=== PATIENT | male | born 1940 | race Caucasian/White ===

== ENCOUNTER 2017-08-22 15:19 | Inpatient (IN) | payer OTHER ==
[~2017-08-22] VITALS: Ht 180.3 cm; Wt 77.2 kg
[~2017-08-22 15:19] MED LIST: ALL300 PO; ASPI-319 PO; LOSA1TAB PO
[2017-08-22] MEDS ORDERED: [UNRECOGNIZED DRUG - CODE] PO (16:23)
[2017-08-22] MEDS ORDERED: EMPA1TAB3 PO (16:23)
[2017-08-22] MEDS ORDERED: ALL300 PO (16:23)
[2017-08-22] MEDS ORDERED: FENTANYL CITRATE INJ 50 MCG/1 ML 2 ML VIAL IV ONE ×2 (16:30→19:15)
--- NOTE | 2017-08-22 16:35 | EMERGENCY ROOM VISIT NOTE ---
History First contact with patient: 15:41 Chief Complaint: BACK PAIN Stated Complaint: BACK PAIN History of Present Illness The patient is a 76 year old male who presents to the Emergency Room with complaints of lower back pain and right hip pain after sustaining a fall this weekend. Patient has a history of dementia. Most of the history is taken from the who is currently at the bedside. The patient fell backwards striking his back on the ground. The patient's does not think that he hit his head. He is not on any anticoagulation. They have been trying Motrin and ice, which seemed to help. The patient however did not want to get out of bed today. He did not want to bear weight on the right leg. The patient has a history of lumbar spine surgery years ago. The patient currently denies any pain. Review of Systems 10 system review performed and negative unless noted in HPI or below. This was reviewed to the best of my ability with the Past Medical/Surgical History Medical Problems: (1) Bowel cancer (2) Diabetes (3) Fall (4) history of bowel resection (5) Kidney stones (6) Pelvic fracture (7) Ribs, multiple fractures (8) Sepsis Surgical Problems: (1) History of appendectomy Dementia Family History Diabetes mellitus Hypertension Social History Smoking Status: Former Smoker Marital Status: Housing Status: lives with family Occupation Status: retired Current/Historical Medications Scheduled Allopurinol (Allopurinol), 150 MG PO DAILY Empagliflozin (Jardiance), Unknown Dose PO DAILY Fluorometholone (Ophth) (Fluorometholone), 1 DROP OPR DAILY Losartan Potassium (Cozaar), 25 MG PO DAILY Metformin HCl (Metformin Hydrochloride), 1,000 MG PO BID Physical Exam Vital Signs Date Time Temp Pulse Resp B/P (MAP) Pulse Ox O2 Delivery O2 Flow Rate FiO2 08/22/17 22:10 72 18 125/72 97 Room Air 08/22/17 20:40 75 18 130/75 97 Room Air 08/22/17 19:15 62 18 134/72 97 Room Air 08/22/17 17:30 54 18 123/85 97 Room Air 08/22/17 15:30 36.8 67 18 138/98 98 Room Air Physical Exam VITALS: Vitals are noted on the nurse's note and reviewed by myself. Vital signs stable. GENERAL: 76-year-old male, in no acute distress, nondiaphoretic, well-developed well-nourished. SKIN: The skin was without rashes, erythema, edema, or bruising. HEAD: Normocephalic atraumatic. NECK: Cervical spine is nontender. No JVD. HEART: Regular rate and rhythm without murmurs gallops or rubs. LUNGS: Clear to auscultation bilaterally without wheezes, rales or rhonchi. No accessory muscle use. ABDOMEN: Positive bowel sounds x 4.Soft, nontender, without organomegaly. No guarding or rebound tenderness. MUSCULOSKELETAL: No tenderness to palpation noted over the spinous processes throughout the spine. No tenderness over the thorax. Pain over the right lateral hip. Pain extending down into the mid thigh with palpation. Pain with flexion and abduction of the hip. No limb length discrepancy noted. DP pulse +2 bilaterally. NEURO: Patient was alert and answers most questions appropriately. He does not know the date. No focal motor deficits noted Medical Decision & Procedures ER Provider Diagnostic Interpretation: CT RLE IMPRESSION: Nondisplaced very subtle cortical buckle fracture right inferior pubic ring. Mild degenerative change of all remaining osseous structures. The above report was generated using voice recognition software. It may contain grammatical, syntax or spelling errors. Electronically signed by: Trav Adame M.D. 08/22/2017 8:15 PM Dictated Date/Time: 08/22/2017 8:12 PM The status of this report is Signed. Rib x-rays with chest Lungs are clear. IMPRESSION: 1. Nondisplaced cortical fracture anterior right ninth and 10th ribs. 2. Several old left-sided rib fractures. 3. No evidence pneumothorax. The above report was generated using voice recognition software. It may contain grammatical, syntax or spelling errors. Electronically signed by: Trav Adame M.D. 08/22/2017 7:10 PM Dictated Date/Time: 08/22/2017 7:07 PM The status of this report is Signed. Draft = Not yet reviewed or approved by Radiologist. Signed = Reviewed and approved by Radiologist. Femur x-ray IMPRESSION: Negative study. The above report was generated using voice recognition software. It may contain grammatical, syntax or spelling errors. Electronically signed by: Trav Adame M.D. 08/22/2017 7:07 PM Dictated Date/Time: 08/22/2017 7:07 PM Hip/pelvis x-ray IMPRESSION: Generalized degenerative change. No acute process. The above report was generated using voice recognition software. It may contain grammatical, syntax or spelling errors. Electronically signed by: Trav Adame M.D. 08/22/2017 7:06 PM Dictated Date/Time: 08/22/2017 7:03 PM The status of this report is Signed. CT cervical spine IMPRESSION: No fractures within the cervical spine. Moderate degenerative change of mid to lower cervical region. The above report was generated using voice recognition software. It may contain grammatical, syntax or spelling errors. Electronically signed by: Trav Adame M.D. 08/22/2017 5:33 PM Dictated Date/Time: 08/22/2017 5:[address] without contrast Impression: No acute intracranial abnormality. Age-related change. The above report was generated using voice recognition software. It may contain grammatical, syntax or spelling errors. Electronically signed by: Trav Adame M.D. 08/22/2017 5:30 PM Dictated Date/Time: 08/22/2017 5:29 PM The status of this report is Signed. Draft = Not yet reviewed or approved by Radiologist. Signed = Reviewed and approved by Radiologist. Lumbar CT without contrast IMPRESSION: No fractures within the lumbar spine. . Degenerative change. Mild osteopenia. Several mild wedge deformity superior endplates of L2 and L3 considered old The above report was generated using voice recognition software. It may contain Thoracic CT spine without contrast IMPRESSION: No fractures within the thoracic spine. Moderate degenerative disc change throughout. The above report was generated using voice recognition software. It may contain grammatical, syntax or spelling errors. Electronically signed by: Trav Adame M.D. 08/22/2017 5:38 PM Laboratory Results 08/22/17 15:34 Red Blood Count 5.19, Mean Corpuscular Volume 87.3, Mean Corpuscular Hemoglobin 31.8, Mean Corpuscular Hemoglobin Concent 36.4, Mean Platelet Volume 10.5, Neutrophils (%) (Auto) 60.8, Lymphocytes (%) (Auto) 29.1, Monocytes (%) (Auto) 8.5, Eosinophils (%) (Auto) 1.0, Basophils (%) (Auto) 0.3, Neutrophils # (Auto) 5.61, Lymphocytes # (Auto) 2.68, Monocytes # (Auto) 0.78, Eosinophils # (Auto) 0.09, Basophils # (Auto) 0.03 08/22/17 15:34 Test 08/22/17 15:34 White Blood Count 9.22 K/uL (4.8-10.8) Red Blood Count 5.19 M/uL (4.7-6.1) Hemoglobin 16.5 g/dL (14.0-18.0) Hematocrit 45.3 % (42-52) Mean Corpuscular Volume 87.3 fL (80-100) Mean Corpuscular Hemoglobin 31.8 pg (25-34) Mean Corpuscular Hemoglobin Concent 36.4 g/dl (32-36) Platelet Count 279 K/uL (130-400) Mean Platelet Volume 10.5 fL (7.4-10.4) Neutrophils (%) (Auto) 60.8 % Lymphocytes (%) (Auto) 29.1 % Monocytes (%) (Auto) 8.5 % Eosinophils (%) (Auto) 1.0 % Basophils (%) (Auto) 0.3 % Neutrophils # (Auto) 5.61 K/uL (1.4-6.5) Lymphocytes # (Auto) 2.68 K/uL (1.2-3.4) Monocytes # (Auto) 0.78 K/uL (0.11-0.59) Eosinophils # (Auto) 0.09 K/uL (0-0.5) Basophils # (Auto) 0.03 K/uL (0-0.2) RDW Standard Deviation 42.1 fL (36.4-46.3) RDW Coefficient of Variation 13.2 % (11.5-14.5) Immature Granulocyte % (Auto) 0.3 % Immature Granulocyte # (Auto) 0.03 K/uL (0.00-0.02) Anion Gap 9.0 mmol/L (3-11) Est Creatinine Clear Calc Drug Dose 70.4 ml/min Estimated GFR () 89.8 Estimated GFR (Non- 77.4 BUN/Creatinine Ratio 19.9 (10-20) Calcium Level 9.5 mg/dl (8.5-10.1) Total Bilirubin 0.7 mg/dl (0.2-1) Aspartate Amino Transf (AST/SGOT) 37 U/L (15-37) Alanine Aminotransferase (ALT/SGPT) 49 U/L (12-78) Alkaline Phosphatase 111 U/L (45-117) Troponin I < 0.015 ng/ml (0-0.045) Total Protein 8.4 gm/dl (6.4-8.2) Albumin 4.4 gm/dl (3.4-5.0) Globulin 4.0 gm/dl (2.5-4.0) Albumin/Globulin Ratio 1.1 (0.9-2) Thyroid Stimulating Hormone (TSH) 1.710 uIu/ml (0.300-4.500) Medications Administered Medications (Trade) Dose Ordered Sig/Aniyah Route Start Time Stop Time Status Last Admin Dose Admin Fentanyl Citrate (Fentanyl Inj) 25 mcg NOW ONCE IV 08/22/17 16:30 08/22/17 16:31 DC 08/22/17 16:47 25 MCG Fentanyl Citrate (Fentanyl Inj) 25 mcg NOW ONCE IV 08/22/17 19:15 08/22/17 19:16 DC 08/22/17 19:15 25 MCG ECG Per My Interpretation Rate (beats per minute): 69 Rhythm: normal sinus ED Course Patient was seen and examined Vital signs including blood pressure were reviewed The patient was medicated with fentanyl 25 mcg Imaging was performed and reviewed The patient was reevaluated after imaging and was having significant pain. He was given an additional dose of fentanyl An EKG was performed. Blood work was also reviewed. Case was discussed with my supervising physician who personally evaluated the patient The patient tried to ambulate with a walker. He had significant difficulty. The case was discussed with orthopedics and subsequently the [facility] service who kindly agreed to keep patient overnight for further treatment Medical Decision Differential diagnosis: Fracture, contusion, sprain, intrathoracic/intra- abdominal injury,, intracranial bleed, questionable syncope This patient is a 76-year-old male presents to the emergency department with a reported mechanical fall. On exam, he had significant pain with flexion and abduction of the right hip. I cannot elicit any significant tenderness over his spine. Due to his dementia, I ordered a CT of the head and spine. These were negative. The patient had exquisite pain with weightbearing on the right leg. For this reason, a CT of the hip was performed. This shows a fracture in the inferior pubic ring, which is likely the source of his pain. Although the thought that this fall was mechanical, I ordered an EKG and basic blood work. No significant abnormalities were noted. The case was discussed with orthopedics. There is no surgical treatment necessary. Unfortunately, I could not get the patient comfortable enough to ambulate with a walker. For this reason, the patient was discussed with the [facility] service who kindly agreed to keep patient overnight for pain control and possible placement This chart was completed in part utilizing [employer] Voice Recognition software. Attempts were made to minimize the grammatical errors, random word insertions, pronoun errors and incomplete sentences. Any formal questions or concerns about the content, text or information contained within the body of this dictation should be directly addressed to the provider for clarification. Medication Reconcilliation Current Medication List: was personally reviewed by me Blood Pressure Screening Patient's blood pressure: Normal blood pressure Consults Consulting Physician: Dr. Short Additional Consults: Consulted Physician: Dr. Gertrude Patel Impression Primary Impression: Pelvic fracture Departure Information Referrals Zack Gerardo M.D. (PCP) Patient Instructions [facility]
--- NOTE | 2017-08-22 17:32 | DIAGNOSTIC IMAGING REPORT ---
HEAD WITHOUT CONTRAST (CT) CT DOSE: HISTORY: Trauma. Mental status change. fall TECHNIQUE: Multiaxial CT images of the head were performed without the use of intravenous contrast. A dose lowering technique was utilized adhering to the principles of ALARA. Comparison: 2013 Findings: The paranasal sinuses and mastoid air cells are clear. The calvarium and skull base are intact. The ventricles and sulci are within normal limits. There is no mass, hematoma, midline shift, or acute infarct. Age-related atrophy and scattered areas of encephalomalacia. Impression: No acute intracranial abnormality. Age-related change. The above report was generated using voice recognition software. It may contain grammatical, syntax or spelling errors. Electronically signed by: Trav Adame M.D. 08/22/2017 5:30 PM Dictated Date/Time: 08/22/2017 5:29 PM
--- NOTE | 2017-08-22 17:35 | DIAGNOSTIC IMAGING REPORT ---
CERVICAL SPINE W/O CT DOSE: HISTORY: Trauma. Pain. fall back pain TECHNIQUE: Multiaxial CT images of the cervical spine were performed and reformatted in the sagittal and coronal plane without the use of contrast. A dose lowering technique was utilized adhering to the principles of ALARA. COMPARISON: None. FINDINGS: No fractures. No subluxation. Prevertebral soft tissues and the C1-C2 interval are intact. No pneumothorax. Degenerative change C5-C7. IMPRESSION: No fractures within the cervical spine. Moderate degenerative change of mid to lower cervical region. The above report was generated using voice recognition software. It may contain grammatical, syntax or spelling errors. Electronically signed by: Trav Adame M.D. 08/22/2017 5:33 PM Dictated Date/Time: 08/22/2017 5:31 PM
--- NOTE | 2017-08-22 17:39 | DIAGNOSTIC IMAGING REPORT ---
THORACIC SPINE WITHOUT CT DOSE: 3515.44 mGy.cm HISTORY: Trauma. Pain. fall back pain TECHNIQUE: Multiaxial CT images of the thoracic spine were performed and reformatted in the sagittal and coronal plane without the use of contrast. A dose lowering technique was utilized adhering to the principles of ALARA. COMPARISON: None. FINDINGS: No fractures. No subluxation. Paraspinal soft tissues are unremarkable. Moderate degenerative change throughout the entire thoracic region IMPRESSION: No fractures within the thoracic spine. Moderate degenerative disc change throughout. The above report was generated using voice recognition software. It may contain grammatical, syntax or spelling errors. Electronically signed by: Trav Adame M.D. 08/22/2017 5:38 PM Dictated Date/Time: 08/22/2017 5:34 PM
--- NOTE | 2017-08-22 17:42 | DIAGNOSTIC IMAGING REPORT ---
LUMBAR SPINE WITHOUT CT DOSE: HISTORY: Trauma. Pain. low back pain into R groin TECHNIQUE: Multiaxial CT images of the lumbar spine were performed and reformatted in the sagittal and coronal plane without the use of contrast. A dose lowering technique was utilized adhering to the principles of ALARA. COMPARISON: None. FINDINGS: No fractures. No subluxation. Paraspinal soft tissues are unremarkable. Slight concave deformity superior endplate of L2 and L3 considered old radiographically. Mild osteopenia. IMPRESSION: No fractures within the lumbar spine. . Degenerative change. Mild osteopenia. Several mild wedge deformity superior endplates of L2 and L3 considered old The above report was generated using voice recognition software. It may contain grammatical, syntax or spelling errors. Electronically signed by: Trav Adame M.D. 08/22/2017 5:41 PM Dictated Date/Time: 08/22/2017 5:38 PM
[2017-08-22 18:41] LABS: BASO % 0.3 %; BASO ABS # 0.03 K/uL (0-0.2); EOS ABS # 0.09 K/uL (0-0.5); HEMATOCRIT 45.3 % (42-52); HEMOGLOBIN 16.5 g/dL (14.0-18.0); IG# 0.03 K/uL (0.00-0.02); LYMPH % 29.1 %; LYMPH ABS # 2.68 K/uL (1.2-3.4); MEAN CELL VOLUME 87.3 fL (80-100); MEAN CORPUSCULAR HEMOGLOBIN 31.8 pg (25-34); MEAN CORPUSCULAR HGB CONC 36.4 g/dl (32-36); MEAN PLATELET VOLUME 10.5 fL (7.4-10.4); MONO % 8.5 %; MONO ABS # 0.78 K/uL (0.11-0.59); NEUT % 60.8 %; NEUT ABS # 5.61 K/uL (1.4-6.5); PLATELET COUNT 279 K/uL (130-400); RED CELL DISTRIBUTION WIDTH CV 13.2 % (11.5-14.5); RED CELL DISTRIBUTION WIDTH SD 42.1 fL (36.4-46.3); WHITE BLOOD COUNT 9.22 K/uL (4.8-10.8)
[2017-08-22 18:51] LABS: ALBUMIN 4.4 gm/dl (3.4-5.0); ALT/SGPT 49 U/L (12-78); AST/SGOT 37 U/L (15-37); BLOOD UREA NITROGEN 19 mg/dl (7-18); CALCIUM 9.5 mg/dl (8.5-10.1); CARBON DIOXIDE 24 mmol/L (21-32); CREATININE 0.95 mg/dl (0.60-1.40); GLUCOSE 140 mg/dl (70-99); SODIUM 137 mmol/L (136-145)
[2017-08-22 18:56] LABS: ALKALINE PHOSPHATASE 111 U/L (45-117); TOTAL PROTEIN 8.4 gm/dl (6.4-8.2)
--- NOTE | 2017-08-22 19:08 | DIAGNOSTIC IMAGING REPORT ---
R PELVIS/UNILATERAL HIP 2-3VIEWS CLINICAL HISTORY: RIGHT HIP PAIN AFTER FALL trauma. Pain. COMPARISON: None. DISCUSSION: The bones and joint spaces appear intact. There is no evidence of fracture, dislocation or bony disease. Moderate generalized degenerative change. No acute process. IMPRESSION: Generalized degenerative change. No acute process. The above report was generated using voice recognition software. It may contain grammatical, syntax or spelling errors. Electronically signed by: Trav Adame M.D. 08/22/2017 7:06 PM Dictated Date/Time: 08/22/2017 7:03 PM
--- NOTE | 2017-08-22 19:08 | DIAGNOSTIC IMAGING REPORT ---
R FEMUR 2 VIEWS ROUTINE CLINICAL HISTORY: R femur pain pain. Trauma. COMPARISON: None. DISCUSSION: The bones and joint spaces appear intact. There is no evidence of fracture, dislocation or bony disease. There is no evidence for soft tissue swelling. IMPRESSION: Negative study. The above report was generated using voice recognition software. It may contain grammatical, syntax or spelling errors. Electronically signed by: Trav Adame M.D. 08/22/2017 7:07 PM Dictated Date/Time: 08/22/2017 7:07 PM
--- NOTE | 2017-08-22 19:11 | DIAGNOSTIC IMAGING REPORT ---
RIBS BILATERAL WITH PA CHEST CLINICAL HISTORY: fall on back COMPARISON STUDY: None FINDINGS: Nondisplaced cortical fractures anterior right ninth and 10th ribs. Left ribs show several left-sided rib fractures all of which are considered old. No acute bony abnormalities appreciated. Lungs are clear. IMPRESSION: 1. Nondisplaced cortical fracture anterior right ninth and 10th ribs. 2. Several old left-sided rib fractures. 3. No evidence pneumothorax. The above report was generated using voice recognition software. It may contain grammatical, syntax or spelling errors. Electronically signed by: Trav Adame M.D. 08/22/2017 7:10 PM Dictated Date/Time: 08/22/2017 7:07 PM
--- NOTE | 2017-08-22 19:33 | EMERGENCY ROOM VISIT NOTE ---
ED Visit Note First contact with patient: 15:41 The patient was seen and examined with Nemo Romano PA-C. I agree with the history, physical and findings. Please see the note for disposition and details. The patient has a pelvic fracture. No spinal issues noted. He has no significant tenderness on the right side. Old fractures noted on the left.
--- NOTE | 2017-08-22 20:16 | DIAGNOSTIC IMAGING REPORT ---
R LOWER EXTREMITY WITHOUT CT DOSE: 466.61 mGy.cm HISTORY: Pain R hip pain can't ambulate TECHNIQUE: Multiaxial CT images of the right hip were performed and reformatted in the sagittal and coronal plane without the use of contrast. A dose lowering technique was utilized adhering to the principles of ALARA. COMPARISON: None. FINDINGS: Subtle incomplete cortical fracture inferior pubic ring. This is best seen transaxial image 73 and 466. Mild degenerative change of all remaining osseous structures. No additional acute bony abnormality. Perhaps a minimal degree of soft tissue edematous change. The hip itself shows moderate degenerative change but no acute bony abnormality. IMPRESSION: Nondisplaced very subtle cortical buckle fracture right inferior pubic ring. Mild degenerative change of all remaining osseous structures. The above report was generated using voice recognition software. It may contain grammatical, syntax or spelling errors. Electronically signed by: Trav Adame M.D. 08/22/2017 8:15 PM Dictated Date/Time: 08/22/2017 8:12 PM
[2017-08-22] MEDS ORDERED: FLUO0.1S12 OPR (21:01)
[2017-08-22 23:53] VITALS: BP 145/87; PULSE 62; TEMP 36.7; O2SAT 98
[2017-08-23] MEDS ORDERED: HALOPERIDOL 1 MG TAB PO PRN
[2017-08-23] MEDS ORDERED: GLUCOSE 40% GEL 15 GM TUBE PO PRN
[2017-08-23] MEDS ORDERED: GLUCAGON FOR INJ 1 MG VIAL SQ PRN
[2017-08-23] MEDS ORDERED: HALOPERIDOL LACTATE 5 MG/ML 1 ML VIAL IM PRN
[2017-08-23] MEDS ORDERED: GLUCOSE 10 TABS/TUBE PO PRN
[2017-08-23] MEDS ORDERED: PROCHLORPERAZINE INJ 5 MG in SYRINGE 4 ML IV PRN
[2017-08-23] MEDS ORDERED: CARBOHYDRATES FOR HYPOGLYCEMIA PO PRN
[2017-08-23] MEDS ORDERED: DEXTROSE 50% 50 ML SYR IV PRN
[2017-08-23] MEDS ORDERED: INSULIN ASPART 100 UNITS/ML 3 ML PEN SC ONE (00:30)
[2017-08-23] MEDS ORDERED: IV FLUIDS COMPLETED PRN (00:45)
[2017-08-23] MEDS ORDERED: INSULIN GLARGINE SOLOSTAR 100 UNITS/ML 3 ML PEN SC ONE ×2 (03:30→09:30)
[2017-08-23 03:33] VITALS: BMI 23.7
[2017-08-23] MEDS ORDERED: SODIUM CHLORIDE 0.9% 1000ML 1,000 ML IV ONE (05:45)
[2017-08-23 06:09] LABS: HEMOGLOBIN A1C 9.4 % (4.5-5.6)
[2017-08-23 06:54] LABS: BASO % 0.6 %; BASO ABS # 0.04 K/uL (0-0.2); EOS % 2.2 %; EOS ABS # 0.16 K/uL (0-0.5); HEMOGLOBIN 14.9 g/dL (14.0-18.0); IG# 0.04 K/uL (0.00-0.02); LYMPH % 36.2 %; LYMPH ABS # 2.63 K/uL (1.2-3.4); MEAN CELL VOLUME 87.5 fL (80-100); MEAN CORPUSCULAR HGB CONC 35.5 g/dl (32-36); MEAN PLATELET VOLUME 10.3 fL (7.4-10.4); MONO % 12.9 %; MONO ABS # 0.94 K/uL (0.11-0.59); NEUT % 47.5 %; NEUT ABS # 3.46 K/uL (1.4-6.5); PLATELET COUNT 257 K/uL (130-400); RED CELL DISTRIBUTION WIDTH CV 13.3 % (11.5-14.5); RED CELL DISTRIBUTION WIDTH SD 42.7 fL (36.4-46.3); WHITE BLOOD COUNT 7.27 K/uL (4.8-10.8)
[2017-08-23] MEDS: FLUOROMETHOLONE~ORDER AWAITING ACTION SCH ×2 (07:08→16:00)
--- NOTE | 2017-08-23 07:34 | HISTORY & PHYSICAL EXAMINATION ---
DATE OF ADMISSION: 08/22/2017 PRIMARY CARE DOCTOR: Dr. Jones. CHIEF COMPLAINT: Fall. HISTORY OF PRESENT ILLNESS: History obtained from patient, , and records. Patient is a fair historian. Medical history is significant for dementia, hypertension, colon cancer, status post surgery, DM2 on oral medications, past tobacco abuse. Recent confinement in March 2012 for acute appendicitis sp appendectomy. Over the weekend, the patient had low back pain and hip pain after a mechanical fall witnessed by witnessed by . No chest pain, no sob, no syncope. Brought to the Emergency Room. RLE CT showed a nondisplaced subtle cortical buckle fracture, right inferior pubic ring. Patient is still having trouble moving with the pain. MEDICAL HISTORY: As above. Outpx CT abd pelvis results requested by PCP due to poor appetite concerns 2017 : 6 millimeter coarse calcification in the pancreatic head duct with upstream pancreatic ductal dilatation. No dilatation of the common bile duct or intrahepatic biliary tree. Consider ERCP. 8 millimeter pleural-based nodule in the right lower lobe, new compared to study of 2009. (Family unaware of above results as per .) SURGICAL HISTORY: Appendectomy, urologic procedures, eye surgery, A port placement, colovesical surgery, chemotherapy. MEDICATIONS: Home medications include allopurinol, Jardiance, fluorometholone, Cozaar, metformin. ALLERGIES: TETRACYCLINE. FAMILY HISTORY: Breast cancer, lymphoma, dementia. PERSONAL AND SOCIAL HISTORY: Past tobacco, no chronic ETOH intake. 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 PHYSICAL EXAMINATION: VITAL SIGNS: Blood pressure was noted to be 120/69, pulse 90, RR 18 temperature 36.8, saturations 97% on room air. GENERAL: Noted to be pleasant, in no respiratory distress, demented, looks younger for his stated age. SKIN: Normal color. Warm. HEENT: Ione palpebral conjunctivae. No ptosis. Dry mucosa. NECK: Supple, nontender. CHEST: Clear to auscultation. No tenderness. HEART: Regular rate and rhythm. No murmur. ABDOMEN: Some distention, nontender. EXTREMITIES: No overt tenderness. No other gross deformities. NEUROLOGIC: Coherent, demented, no facial asymmetry. No other gross focality. Gait and stance not assessed. LABORATORY DATA: Hemoglobin was noted to be 16.5, white cells 9.22, platelets noted to be at 279. Sodium noted to be 137, potassium 4, chloride 104, CO2 of 24, BUN 19, creatinine 0.9, glucose 140. Hemoglobin A1c from April [address] of head: No acute pathology. Cervical spine CT: No fracture of cervical spine, mild degenerative change. RLE CT as above ASSESSMENT AND PLAN: 1. Pelvic fracture secondary to mechanical fall. 2. Ambulatory dysfunction secondary to above 3. HTN, stable 4. dementia, stable as per family as per records. 5. Colon cancer, status post surgery and chemotherapy. 6. DM2, on oral medications suboptimal control as of recent outpatient visit. 7. Abnormal outpatient CT abdomen pelvis results (04/2017) OBS [facility]. Orthopedics consult. RE Pelvic fracture (ER provider already in touch with Dr. Short.) PT/OT evaluation. Basal insulin. ISS, BG goal 140-180, Carb count coverage, patient due for HgA1c recheck. Social service. RE Discharge planning. PCP to discuss abnormal outpatient CT results from 04/2017 on follow-up office visit. DVT prophylaxis. Lovenox subcu Full code as per , Ms. Cristina Lama. She requests updates from providers at [phone]. [facility]
[2017-08-23 07:35] VITALS: BP 152/88; PULSE 62; TEMP 36.6; O2SAT 96
[2017-08-23] MEDS ORDERED: PNEUMOCOCCAL ADMINISTRATION CHARGE ONE (08:00)
[2017-08-23] MEDS ORDERED: PNEUMOCOCCAL POLYSACCHARIDES 25 MCG/0.5 ML VIAL/SYR IM. ONE (08:00)
[2017-08-23] MEDS: INSULIN ASPART 100 UNITS/ML 3 ML PEN SC SCH ×4 (08:00→21:54)
[2017-08-23] MEDS: ALLOPURINOL 300 MG TAB PO SCH (09:50)
[2017-08-23] MEDS: LOSARTAN POTASSIUM 25 MG TAB PO SCH (09:50)
[2017-08-23] MEDS: ENOXAPARIN 40 MG/0.4 ML SYR SQ SCH (09:51)
[2017-08-23] MEDS: ACETAMINOPHEN 325 MG TAB PO PRN (10:27)
--- NOTE | 2017-08-23 10:50 | Orthopedic Consultation ---
Orthopedic Consultation Date of Consultation: August 23, 2017. Attending Physician: Kerri Rowland DO Reason for Consultation: Right inferior pubic rami fracture History of Present Illness The patient is a 76-year-old male who presents with significant past medical history of dementia, and hypertension, colon cancer, diabetes who sustained a mechanical fall from standing height subsequent right hip pain and difficulty ambulating. Seen at [facility] emergency department and diagnosed with nondisplaced inferior pubic rami fractures seen on CT scan. Admitted for amatory dysfunction. The patient is pleasantly demented and provides limited HPI. Denies numbness tingling right lower extremity denies pain at this time. Family History Diabetes mellitus Hypertension Social History Smoking Status: Unknown if Ever Smoked Marital Status: Housing Status: lives with family Occupation Status: retired Allergies Coded Allergies: Tetracycline (Verified Adverse Reaction, Unknown, SEVERE CONSTIPATION, 08/22) Uncoded Allergies: ADHESIVE TAPE (Allergy, Intermediate, ERRYTHEMA, 09/25/13) Home Medications Scheduled Allopurinol (Allopurinol), 150 MG PO DAILY Empagliflozin (Jardiance), Unknown Dose PO DAILY Fluorometholone (Ophth) (Fluorometholone), 1 DROP OPR DAILY Losartan Potassium (Cozaar), 25 MG PO DAILY Metformin HCl (Metformin Hydrochloride), 1,000 MG PO BID Current Inpatient Medications Current Inpatient Medications Medications (Trade) Dose Ordered Sig/Aniyah Route Start Time Stop Time Status Last Admin Dose Admin Enoxaparin Sodium (Lovenox Inj) 40 mg Q24H SQ 08/23/17 09:00 09/22/17 08:59 08/23/17 09:51 40 MG Acetaminophen (Tylenol Tab) 650 mg Q4H PRN PO 08/23/17 00:00 09/22/17 00:00 08/23/17 10:27 650 MG Insulin Aspart (novoLOG ASPART) SLIDING SCALE If C... ACHS SC 08/23/17 08:00 09/22/17 07:59 Glucose (Glucose 40% Gel) 15-30 GRAMS 15 GRAMS... UD PRN PO 08/23/17 00:00 09/22/17 00:00 Glucose (Glucose Chew Tab) 4-8 Tablets 4 Tabl... UD PRN PO 08/23/17 00:00 09/22/17 00:00 Dextrose (Dextrose 50% 50ML Syringe) 25-50ML 25ML FOR ... UD PRN IV 08/23/17 00:00 09/22/17 00:00 Glucagon (Glucagon Inj) 1 mg UD PRN SQ 08/23/17 00:00 09/22/17 00:00 Carbohydrates (Carbohydrates For Hypoglycemia) 15-30 GRAMS 15 grams if BSG 54-69... UD PRN PO 08/23/17 00:00 09/22/17 00:00 Prochlorperazine Edisylate 5 mg/ Syringe 5 ml @ 5 mls/min Q6H PRN IV 08/23/17 00:00 09/22/17 00:00 Allopurinol (Zyloprim Tab) 150 mg DAILY PO 08/23/17 09:00 09/22/17 08:59 08/23/17 09:50 150 MG Losartan Potassium (coZAAR TAB) 25 mg DAILY PO 08/23/17 09:00 09/22/17 08:59 08/23/17 09:50 25 MG Miscellaneous Information (Order Awaiting Action) 1 ea QS N/A 08/23/17 08:00 09/22/17 07:59 Haloperidol (Haldol Tab) 2 mg Q4H PRN PO 08/23/17 00:00 09/22/17 00:00 Haloperidol Lactate (Haldol Inj) 2 mg Q2H PRN IM 08/23/17 00:00 09/22/17 00:00 Miscellaneous (Iv Fluids Completed) 1 ea PRN PRN N/A 08/23/17 00:45 08/23/18 00:44 Sodium Chloride 1,000 ml @ 60 mls/hr [id number] ONCE IV 08/23/17 05:45 08/23/17 22:24 08/23/17 06:06 60 MLS/HR Insulin Glargine (Lantus Solostar Pen) 10 units DAILY SC 08/24/17 09:00 09/23/17 08:59 Review of Systems Negative with exception of those mentioned in HPI above. Physical Exam Date Time Temp Pulse Resp B/P (MAP) Pulse Ox O2 Delivery O2 Flow Rate FiO2 08/23/17 08:07 Room Air 08/23/17 07:35 36.6 62 18 152/88 (109) 96 Room Air 08/23/17 04:23 Room Air 08/23/17 03:33 Room Air 08/22/17 23:53 36.7 62 16 145/87 (106) 98 Room Air 08/22/17 23:29 69 16 126/69 95 08/22/17 22:10 72 18 125/72 97 Room Air 08/22/17 20:40 75 18 130/75 97 Room Air 08/22/17 19:15 62 18 134/72 97 Room Air 08/22/17 17:30 54 18 123/85 97 Room Air 08/22/17 15:30 36.8 67 18 138/98 98 Room Air No apparent distress Right lower extremity is neurovascular sensory intact positive EHL FHL TA GS, + 2 dorsalis pedis pulse, full painless range of motion flexion extension internal and external rotation of the hip, flexion extension of the knee and plantar flexion dorsiflexion of the ankle. Can straight leg raise without pain. Compartments soft nontender, skin overlying right hip intact. No ecchymoses. Left lower extremity is neurovascular sensory intact, +2 dorsalis pedis pulse, full active and passive painless range of motion of the hip knee and ankle. Laboratory Results Last 24 Hours Test 08/22/17 15:34 08/23/17 00:42 08/23/17 04:45 08/23/17 06:38 White Blood Count 9.22 K/uL 7.27 K/uL Red Blood Count 5.19 M/uL 4.80 M/uL Hemoglobin 16.5 g/dL 14.9 g/dL Hematocrit 45.3 % 42.0 % Mean Corpuscular Volume 87.3 fL 87.5 fL Mean Corpuscular Hemoglobin 31.8 pg 31.0 pg Mean Corpuscular Hemoglobin Concent 36.4 g/dl 35.5 g/dl Platelet Count 279 K/uL 257 K/uL Mean Platelet Volume 10.5 fL 10.3 fL Neutrophils (%) (Auto) 60.8 % 47.5 % Lymphocytes (%) (Auto) 29.1 % 36.2 % Monocytes (%) (Auto) 8.5 % 12.9 % Eosinophils (%) (Auto) 1.0 % 2.2 % Basophils (%) (Auto) 0.3 % 0.6 % Neutrophils # (Auto) 5.61 K/uL 3.46 K/uL Lymphocytes # (Auto) 2.68 K/uL 2.63 K/uL Monocytes # (Auto) 0.78 K/uL 0.94 K/uL Eosinophils # (Auto) 0.09 K/uL 0.16 K/uL Basophils # (Auto) 0.03 K/uL 0.04 K/uL RDW Standard Deviation 42.1 fL 42.7 fL RDW Coefficient of Variation 13.2 % 13.3 % Immature Granulocyte % (Auto) 0.3 % 0.6 % Immature Granulocyte # (Auto) 0.03 K/uL 0.04 K/uL Prothrombin Time 10.7 SECONDS Prothromb Time International Ratio 1.0 Sodium Level 137 mmol/L Potassium Level 4.0 mmol/L Chloride Level 104 mmol/L Carbon Dioxide Level 24 mmol/L Anion Gap 9.0 mmol/L Blood Urea Nitrogen 19 mg/dl Creatinine 0.95 mg/dl Est Creatinine Clear Calc Drug Dose 70.4 ml/min Estimated GFR () 89.8 Estimated GFR (Non- 77.4 BUN/Creatinine Ratio 19.9 Random Glucose 140 mg/dl Estimated Average Glucose 223 mg/dl Hemoglobin A1c 9.4 % Calcium Level 9.5 mg/dl Total Bilirubin 0.7 mg/dl Aspartate Amino Transf (AST/SGOT) 37 U/L Alanine Aminotransferase (ALT/SGPT) 49 U/L Alkaline Phosphatase 111 U/L Troponin I < 0.015 ng/ml Total Protein 8.4 gm/dl Albumin 4.4 gm/dl Globulin 4.0 gm/dl Albumin/Globulin Ratio 1.1 Thyroid Stimulating Hormone (TSH) 1.710 uIu/ml Bedside Glucose 199 mg/dl Urine Color YELLOW Urine Appearance CLEAR Urine pH 5.0 Urine Specific [place] 1.040 Urine Protein NEG Urine Glucose (UA) 3+ Urine Ketones 1+ Urine Occult Blood NEG Urine Nitrite NEG Urine Bilirubin NEG Urine Urobilinogen NEG Urine Leukocyte Esterase NEG Assessment & Plan Nondisplaced right inferior pubic rami fracture Weight-bear as tolerates right lower extremely PT OT Ambulate with walker and assistance Pain controlled Conservative treatment at this time. Will need serial x-rays to confirm healing as outpatient. We will need to follow-up 2 weeks after being discharged from the hospital Thank you for the consultation. R LOWER EXTREMITY WITHOUT CT DOSE: 466.61 mGy.cm HISTORY: Pain R hip pain can't ambulate TECHNIQUE: Multiaxial CT images of the right hip were performed and reformatted in the sagittal and coronal plane without the use of contrast. A dose lowering technique was utilized adhering to the principles of ALARA. COMPARISON: None. FINDINGS: Subtle incomplete cortical fracture inferior pubic ring. This is best seen transaxial image 73 and 466. Mild degenerative change of all remaining osseous structures. No additional acute bony abnormality. Perhaps a minimal degree of soft tissue edematous change. The hip itself shows moderate degenerative change but no acute bony abnormality. IMPRESSION: Nondisplaced very subtle cortical buckle fracture right inferior pubic ring. Mild degenerative change of all remaining osseous structures. R PELVIS/UNILATERAL HIP 2-3VIEWS CLINICAL HISTORY: RIGHT HIP PAIN AFTER FALL trauma. Pain. COMPARISON: None. DISCUSSION: The bones and joint spaces appear intact. There is no evidence of fracture, dislocation or bony disease. Moderate generalized degenerative change. No acute process. IMPRESSION: Generalized degenerative change. No acute process. R FEMUR 2 VIEWS ROUTINE CLINICAL HISTORY: R femur pain pain. Trauma. COMPARISON: None. DISCUSSION: The bones and joint spaces appear intact. There is no evidence of fracture, dislocation or bony disease. There is no evidence for soft tissue swelling. IMPRESSION: Negative study.
[2017-08-23 12:05] VITALS: BP 135/90; PULSE 71; O2SAT 98
[2017-08-23 13:29] VITALS: Ht 180.3 cm; Wt 77.2 kg
[2017-08-23 15:05] VITALS: BP 134/85; PULSE 69; O2SAT 98
[2017-08-23 16:41] VITALS: O2SAT 98
[2017-08-23] MEDS ORDERED: EMPA1TAB PO (16:47)
[2017-08-23] MEDS ORDERED: ASPI-320 PO (18:27)
[2017-08-23] MEDS ORDERED: INSU1INJ17 SC (18:27)
[2017-08-23] MEDS ORDERED: TRAZ50TA35 PO (18:27)
[2017-08-23] MEDS ORDERED: LPT20 PO (18:27)
[2017-08-23] MEDS ORDERED: VTMD1000 PO (18:27)
[2017-08-23] MEDS ORDERED: B-CO1CAP3 PO (18:27)
[2017-08-23] MEDS ORDERED: ASCO500T3 PO (18:27)
[2017-08-23] MEDS ORDERED: LORA-741 PO (18:27)
[2017-08-23] MEDS ORDERED: LORAZEPAM 0.5 MG TAB PO PRN (18:30)
[2017-08-23] MEDS ORDERED: TRAZODONE HCL 50 MG TAB PO PRN (18:30)
[2017-08-23] MEDS: ATORVASTATIN 20 MG TAB PO SCH (21:51)
--- NOTE | 2017-08-23 22:40 | Progress Note ---
Medicine Progress Note Date & Time of Visit: August 23, 2017 at 1600. Subjective 76-year-old man with Alzheimer's dementia presents secondary to pelvic fracture secondary to mechanical fall at home. Patient reports the pain is currently controlled. He is tolerating p.o. He denies any issues at this time. Medications were reviewed and reconciled with who is at bedside. Objective Last 8 Hrs Date Time Temp Pulse Resp B/P (MAP) Pulse Ox O2 Delivery O2 Flow Rate FiO2 08/23/17 16:41 98 Room Air 08/23/17 15:05 69 16 134/85 (101) 98 Room Air Physical Exam: GEN: WNWD, in no acute distress, alert and appropriate HEENT: NC/AT, normal sclerae, MMM CARDIO: reg rate, S1/2 heard without m/g/r LUNGS: CTA bilaterally, no crackles, rales or wheezes, good diaphragmatic excursion ABD: soft, non-tender, non-distended, no rebound or guarding, +BS EXTREMITY: RP and DP palpable 2+ bilat, no LE swelling or edema, extremities are warm and well-perfused NEURO: CN 2-12 grossly intact, no gross focal deficits. MUSC: moving all extremities with ease aside from some restricted movement with the legs 2/2 pain/discomfort. SKIN: warm and dry Laboratory Results: 08/23/17 06:38 Red Blood Count 4.80, Mean Corpuscular Volume 87.5, Mean Corpuscular Hemoglobin 31.0, Mean Corpuscular Hemoglobin Concent 35.5, Mean Platelet Volume 10.3, Neutrophils (%) (Auto) 47.5, Lymphocytes (%) (Auto) 36.2, Monocytes (%) (Auto) 12.9, Eosinophils (%) (Auto) 2.2, Basophils (%) (Auto) 0.6, Neutrophils # (Auto ) 3.46, Lymphocytes # (Auto) 2.63, Monocytes # (Auto) 0.94, Eosinophils # (Auto ) 0.16, Basophils # (Auto) 0.04 08/22/17 15:34 Test 08/22/17 15:34 08/23/17 04:45 08/23/17 06:38 08/23/17 20:58 Prothrombin Time 10.7 SECONDS (9.0-12.0) Prothromb Time International Ratio 1.0 (0.9-1.1) Anion Gap 9.0 mmol/L (3-11) Est Creatinine Clear Calc Drug Dose 70.4 ml/min Estimated GFR () 89.8 Estimated GFR (Non- 77.4 BUN/Creatinine Ratio 19.9 (10-20) Estimated Average Glucose 223 mg/dl Hemoglobin A1c 9.4 % (4.5-5.6) Calcium Level 9.5 mg/dl (8.5-10.1) Total Bilirubin 0.7 mg/dl (0.2-1) Aspartate Amino Transf (AST/SGOT) 37 U/L (15-37) Alanine Aminotransferase (ALT/SGPT) 49 U/L (12-78) Alkaline Phosphatase 111 U/L (45-117) Troponin I < 0.015 ng/ml (0-0.045) Total Protein 8.4 gm/dl (6.4-8.2) Albumin 4.4 gm/dl (3.4-5.0) Globulin 4.0 gm/dl (2.5-4.0) Albumin/Globulin Ratio 1.1 (0.9-2) Thyroid Stimulating Hormone (TSH) 1.710 uIu/ml (0.300-4.500) Urine Color YELLOW Urine Appearance CLEAR (CLEAR) Urine pH 5.0 (4.5-7.5) Urine Specific [place] 1.040 (1.000-1.030) Urine Protein NEG (NEG) Urine Glucose (UA) 3+ (NEG) Urine Ketones 1+ (NEG) Urine Occult Blood NEG (NEG) Urine Nitrite NEG (NEG) Urine Bilirubin NEG (NEG) Urine Urobilinogen NEG (NEG) Urine Leukocyte Esterase NEG (NEG) White Blood Count 7.27 K/uL (4.8-10.8) Red Blood Count 4.80 M/uL (4.7-6.1) Hemoglobin 14.9 g/dL (14.0-18.0) Hematocrit 42.0 % (42-52) Mean Corpuscular Volume 87.5 fL (80-100) Mean Corpuscular Hemoglobin 31.0 pg (25-34) Mean Corpuscular Hemoglobin Concent 35.5 g/dl (32-36) Platelet Count 257 K/uL (130-400) Mean Platelet Volume 10.3 fL (7.4-10.4) Neutrophils (%) (Auto) 47.5 % Lymphocytes (%) (Auto) 36.2 % Monocytes (%) (Auto) 12.9 % Eosinophils (%) (Auto) 2.2 % Basophils (%) (Auto) 0.6 % Neutrophils # (Auto) 3.46 K/uL (1.4-6.5) Lymphocytes # (Auto) 2.63 K/uL (1.2-3.4) Monocytes # (Auto) 0.94 K/uL (0.11-0.59) Eosinophils # (Auto) 0.16 K/uL (0-0.5) Basophils # (Auto) 0.04 K/uL (0-0.2) RDW Standard Deviation 42.7 fL (36.4-46.3) RDW Coefficient of Variation 13.3 % (11.5-14.5) Immature Granulocyte % (Auto) 0.6 % Immature Granulocyte # (Auto) 0.04 K/uL (0.00-0.02) Bedside Glucose 274 mg/dl (70-99) Last 24 Hours Test 08/23/17 00:42 08/23/17 04:45 08/23/17 06:38 08/23/17 11:56 Bedside Glucose 199 mg/dl 228 mg/dl Urine Color YELLOW Urine Appearance CLEAR Urine pH 5.0 Urine Specific [place] 1.040 Urine Protein NEG Urine Glucose (UA) 3+ Urine Ketones 1+ Urine Occult Blood NEG Urine Nitrite NEG Urine Bilirubin NEG Urine Urobilinogen NEG Urine Leukocyte Esterase NEG White Blood Count 7.27 K/uL Red Blood Count 4.80 M/uL Hemoglobin 14.9 g/dL Hematocrit 42.0 % Mean Corpuscular Volume 87.5 fL Mean Corpuscular Hemoglobin 31.0 pg Mean Corpuscular Hemoglobin Concent 35.5 g/dl Platelet Count 257 K/uL Mean Platelet Volume 10.3 fL Neutrophils (%) (Auto) 47.5 % Lymphocytes (%) (Auto) 36.2 % Monocytes (%) (Auto) 12.9 % Eosinophils (%) (Auto) 2.2 % Basophils (%) (Auto) 0.6 % Neutrophils # (Auto) 3.46 K/uL Lymphocytes # (Auto) 2.63 K/uL Monocytes # (Auto) 0.94 K/uL Eosinophils # (Auto) 0.16 K/uL Basophils # (Auto) 0.04 K/uL RDW Standard Deviation 42.7 fL RDW Coefficient of Variation 13.3 % Immature Granulocyte % (Auto) 0.6 % Immature Granulocyte # (Auto) 0.04 K/uL Test 08/23/17 17:29 08/23/17 20:58 Bedside Glucose 180 mg/dl 274 mg/dl Assessment & Plan 76-year-old man with Alzheimer's dementia presents secondary to pelvic fracture secondary to mechanical fall at home. Patient reports the pain is currently controlled. He is tolerating p.o. He denies any issues at this time. Medications were reviewed and reconciled with who is at bedside. 1. Pelvic fracture secondary to mechanical fall-evaluated by orthopedics who did not recommend surgical fixation. Patient is weightbearing as tolerated and will proceed to rehabilitation once authorization comes through. Pain control with medications as needed. Daily PT OT 2. Alzheimer's dementia-mentation at baseline per family. is at bedside. 3. Diabetes type 2-holding p.o. medications including guardians and metformin. Insulin sliding scale plus Lantus with tighter scale today in addition of carbohydrate coverage for improvement in control. 4. Hypertension-stable DVT prophylaxis-Lovenox Full code Disposition-to rehabilitation once cleared through authorization. Patient is medically stable for discharge. Kerri Rowland DO [facility] Consultants: [place]-Dr. Anthony Pittman Current Inpatient Medications: Current Inpatient Medications Medications (Trade) Dose Ordered Sig/Aniyah Route Start Time Stop Time Status Last Admin Dose Admin Enoxaparin Sodium (Lovenox Inj) 40 mg Q24H SQ 08/23/17 09:00 09/22/17 08:59 08/23/17 09:51 40 MG Acetaminophen (Tylenol Tab) 650 mg Q4H PRN PO 08/23/17 00:00 09/22/17 00:00 08/23/17 10:27 650 MG Insulin Aspart (novoLOG ASPART) SLIDING SCALE If C... ACHS SC 08/23/17 08:00 09/22/17 07:59 08/23/17 21:54 4 UNITS Glucose (Glucose 40% Gel) 15-30 GRAMS 15 GRAMS... UD PRN PO 08/23/17 00:00 09/22/17 00:00 Glucose (Glucose Chew Tab) 4-8 Tablets 4 Tabl... UD PRN PO 08/23/17 00:00 09/22/17 00:00 Dextrose (Dextrose 50% 50ML Syringe) 25-50ML 25ML FOR ... UD PRN IV 08/23/17 00:00 09/22/17 00:00 Glucagon (Glucagon Inj) 1 mg UD PRN SQ 08/23/17 00:00 09/22/17 00:00 Carbohydrates (Carbohydrates For Hypoglycemia) 15-30 GRAMS 15 grams if BSG 54-69... UD PRN PO 08/23/17 00:00 09/22/17 00:00 Prochlorperazine Edisylate 5 mg/ Syringe 5 ml @ 5 mls/min Q6H PRN IV 08/23/17 00:00 09/22/17 00:00 Allopurinol (Zyloprim Tab) 150 mg DAILY PO 08/23/17 09:00 09/22/17 08:59 08/23/17 09:50 150 MG Losartan Potassium (coZAAR TAB) 25 mg DAILY PO 08/23/17 09:00 09/22/17 08:59 08/23/17 09:50 25 MG Miscellaneous Information (Order Awaiting Action) 1 ea QS N/A 08/23/17 08:00 09/22/17 07:59 Haloperidol (Haldol Tab) 2 mg Q4H PRN PO 08/23/17 00:00 09/22/17 00:00 Haloperidol Lactate (Haldol Inj) 2 mg Q2H PRN IM 08/23/17 00:00 09/22/17 00:00 Miscellaneous (Iv Fluids Completed) 1 ea PRN PRN N/A 08/23/17 00:45 08/23/18 00:44 Insulin Glargine (Lantus Solostar Pen) 10 units DAILY SC 08/24/17 09:00 09/23/17 08:59 Ascorbic Acid (Vitamin C Tab) 500 mg DAILY PO 08/24/17 09:00 09/23/17 08:59 Aspirin (Ecotrin Tab) 81 mg DAILY PO 08/24/17 09:00 09/23/17 08:59 Atorvastatin Calcium (Lipitor Tab) 20 mg HS PO 08/23/17 21:00 09/22/17 20:59 08/23/17 21:51 20 MG Vitamin B Complex (Vitamin B Complex) 1 tab DAILY PO 08/24/17 09:00 09/23/17 08:59 Cholecalciferol (Vitamin D Tab) 1,000 inter.unit DAILY PO 08/24/17 09:00 09/23/17 08:59 Lorazepam (Ativan Tab) 0.5 mg DAILY PRN PO 08/23/17 18:30 09/22/17 18:29 Trazodone HCl (Desyrel Tab) 50 mg HS PRN PO 08/23/17 18:30 09/22/17 18:29
[2017-08-23 23:25] VITALS: BP 123/79; PULSE 57; TEMP 36.8; O2SAT 97
[2017-08-24] MEDS: ACETAMINOPHEN 325 MG TAB PO PRN ×2 (07:56→23:32)
[2017-08-24] MEDS: FLUOROMETHOLONE~ORDER AWAITING ACTION SCH ×3 (08:00→16:00)
[2017-08-24 08:26] VITALS: BP 130/82; PULSE 64; TEMP 37; O2SAT 97
[2017-08-24] MEDS ORDERED: INSULIN GLARGINE SOLOSTAR 100 UNITS/ML 3 ML PEN SC SCH ×2 (09:00)
[2017-08-24] MEDS: INSULIN ASPART 100 UNITS/ML 3 ML PEN SC SCH ×4 (09:41→21:07)
[2017-08-24] MEDS: INSULIN GLARGINE SOLOSTAR 100 UNITS/ML 3 ML PEN SC SCH ×2 (09:42→21:06)
[2017-08-24] MEDS: ASPIRIN 81 MG ECTAB PO SCH (09:44)
[2017-08-24] MEDS: VITAMIN B COMPLEX TAB PO SCH (09:44)
[2017-08-24] MEDS: ASCORBIC ACID 500 MG TAB PO SCH (09:44)
[2017-08-24] MEDS: ALLOPURINOL 300 MG TAB PO SCH (09:45)
[2017-08-24] MEDS: LOSARTAN POTASSIUM 25 MG TAB PO SCH (09:45)
[2017-08-24] MEDS: ENOXAPARIN 40 MG/0.4 ML SYR SQ SCH (09:47)
[2017-08-24] MEDS: CHOLECALCIFEROL 1000 INTER.UNIT TAB PO SCH (09:47)
[2017-08-24 15:58] VITALS: BP 108/70; PULSE 72; TEMP 36.8; O2SAT 96
[2017-08-24 16:00] VITALS: O2SAT 96
[2017-08-24] MEDS: ATORVASTATIN 20 MG TAB PO SCH (21:02)
[2017-08-24 23:30] VITALS: BP 164/89; PULSE 62; TEMP 36.6; O2SAT 99
--- NOTE | 2017-08-25 04:20 | Progress Note ---
Medicine Progress Note Date & Time of Visit: August 24, 2017 at 17:36. Subjective 76-year-old man with Alzheimer's dementia presents secondary to pelvic fracture secondary to mechanical fall at home. Patient reports the pain is currently controlled. He is tolerating p.o. He denies any issues at this time but does appear teary-eyed and emotional. He understands that he in the hospital, knows why he is here and that he is going to rehab. Denies any pain at this time. Objective Last 8 Hrs Date Time Temp Pulse Resp B/P (MAP) Pulse Ox O2 Delivery O2 Flow Rate FiO2 08/24/17 16:00 96 Room Air 08/24/17 15:58 36.8 72 16 108/70 (83) 96 Room Air Physical Exam: GEN: WNWD, in no acute distress but is teary-eyed, alert and appropriate HEENT: NC/AT, normal sclerae, MMM CARDIO: reg rate, S1/2 heard without m/g/r LUNGS: CTA bilaterally, no crackles, rales or wheezes, good diaphragmatic excursion ABD: soft, non-tender, non-distended, no rebound or guarding, +BS EXTREMITY: RP and DP palpable 2+ bilat, no LE swelling or edema, extremities are warm and well-perfused NEURO: CN 2-12 grossly intact, no gross focal deficits. MUSC: moving all extremities with ease aside from some restricted movement with the legs 2/2 pain/discomfort. SKIN: warm and dry Laboratory Results: 08/23/17 06:38 Red Blood Count 4.80, Mean Corpuscular Volume 87.5, Mean Corpuscular Hemoglobin 31.0, Mean Corpuscular Hemoglobin Concent 35.5, Mean Platelet Volume 10.3, Neutrophils (%) (Auto) 47.5, Lymphocytes (%) (Auto) 36.2, Monocytes (%) (Auto) 12.9, Eosinophils (%) (Auto) 2.2, Basophils (%) (Auto) 0.6, Neutrophils # (Auto ) 3.46, Lymphocytes # (Auto) 2.63, Monocytes # (Auto) 0.94, Eosinophils # (Auto ) 0.16, Basophils # (Auto) 0.04 08/22/17 15:34 Test 08/22/17 15:34 08/23/17 04:45 08/23/17 06:38 08/24/17 21:02 Prothrombin Time 10.7 SECONDS (9.0-12.0) Prothromb Time International Ratio 1.0 (0.9-1.1) Anion Gap 9.0 mmol/L (3-11) Est Creatinine Clear Calc Drug Dose 70.4 ml/min Estimated GFR () 89.8 Estimated GFR (Non- 77.4 BUN/Creatinine Ratio 19.9 (10-20) Estimated Average Glucose 223 mg/dl Hemoglobin A1c 9.4 % (4.5-5.6) Calcium Level 9.5 mg/dl (8.5-10.1) Total Bilirubin 0.7 mg/dl (0.2-1) Aspartate Amino Transf (AST/SGOT) 37 U/L (15-37) Alanine Aminotransferase (ALT/SGPT) 49 U/L (12-78) Alkaline Phosphatase 111 U/L (45-117) Troponin I < 0.015 ng/ml (0-0.045) Total Protein 8.4 gm/dl (6.4-8.2) Albumin 4.4 gm/dl (3.4-5.0) Globulin 4.0 gm/dl (2.5-4.0) Albumin/Globulin Ratio 1.1 (0.9-2) Thyroid Stimulating Hormone (TSH) 1.710 uIu/ml (0.300-4.500) Urine Color YELLOW Urine Appearance CLEAR (CLEAR) Urine pH 5.0 (4.5-7.5) Urine Specific [place] 1.040 (1.000-1.030) Urine Protein NEG (NEG) Urine Glucose (UA) 3+ (NEG) Urine Ketones 1+ (NEG) Urine Occult Blood NEG (NEG) Urine Nitrite NEG (NEG) Urine Bilirubin NEG (NEG) Urine Urobilinogen NEG (NEG) Urine Leukocyte Esterase NEG (NEG) White Blood Count 7.27 K/uL (4.8-10.8) Red Blood Count 4.80 M/uL (4.7-6.1) Hemoglobin 14.9 g/dL (14.0-18.0) Hematocrit 42.0 % (42-52) Mean Corpuscular Volume 87.5 fL (80-100) Mean Corpuscular Hemoglobin 31.0 pg (25-34) Mean Corpuscular Hemoglobin Concent 35.5 g/dl (32-36) Platelet Count 257 K/uL (130-400) Mean Platelet Volume 10.3 fL (7.4-10.4) Neutrophils (%) (Auto) 47.5 % Lymphocytes (%) (Auto) 36.2 % Monocytes (%) (Auto) 12.9 % Eosinophils (%) (Auto) 2.2 % Basophils (%) (Auto) 0.6 % Neutrophils # (Auto) 3.46 K/uL (1.4-6.5) Lymphocytes # (Auto) 2.63 K/uL (1.2-3.4) Monocytes # (Auto) 0.94 K/uL (0.11-0.59) Eosinophils # (Auto) 0.16 K/uL (0-0.5) Basophils # (Auto) 0.04 K/uL (0-0.2) RDW Standard Deviation 42.7 fL (36.4-46.3) RDW Coefficient of Variation 13.3 % (11.5-14.5) Immature Granulocyte % (Auto) 0.6 % Immature Granulocyte # (Auto) 0.04 K/uL (0.00-0.02) Bedside Glucose 217 mg/dl (70-99) Last 24 Hours Test 08/23/17 20:58 08/24/17 08:09 Bedside Glucose 274 mg/dl 196 mg/dl Assessment & Plan 76-year-old man with Alzheimer's dementia presents secondary to pelvic fracture secondary to mechanical fall at home. Patient reports the pain is currently controlled. He is tolerating p.o. He denies any issues at this time but does appear teary-eyed and emotional. He understands that he in the hospital, knows why he is here and that he is going to rehab. Denies any pain at this time. 1. Pelvic fracture secondary to mechanical fall-evaluated by orthopedics who did not recommend surgical fixation. Patient is weightbearing as tolerated and will proceed to rehabilitation once authorization comes through. Pain control with medications as needed. Daily PT/OT 2. Alzheimer's dementia-mentation at baseline per family. is at bedside. 3. Diabetes type 2-holding p.o. medications including Jardiance and metformin. Insulin sliding scale plus Lantus with tighter scale today in addition of carbohydrate coverage for improvement in control. 4. Hypertension-stable DVT prophylaxis-Lovenox Full code Disposition-to rehabilitation once cleared through authorization. Patient is medically stable for discharge. Kerri Rowland DO [facility] Consultants: [place]-Dr. Anthony Pittman Current Inpatient Medications: Current Inpatient Medications Medications (Trade) Dose Ordered Sig/Aniyah Route Start Time Stop Time Status Last Admin Dose Admin Enoxaparin Sodium (Lovenox Inj) 40 mg Q24H SQ 08/23/17 09:00 09/22/17 08:59 08/24/17 09:47 40 MG Acetaminophen (Tylenol Tab) 650 mg Q4H PRN PO 08/23/17 00:00 09/22/17 00:00 08/24/17 07:56 650 MG Insulin Aspart (novoLOG ASPART) SLIDING SCALE If C... ACHS SC 08/23/17 08:00 09/22/17 07:59 08/24/17 13:01 8 UNITS Glucose (Glucose 40% Gel) 15-30 GRAMS 15 GRAMS... UD PRN PO 08/23/17 00:00 09/22/17 00:00 Glucose (Glucose Chew Tab) 4-8 Tablets 4 Tabl... UD PRN PO 08/23/17 00:00 09/22/17 00:00 Dextrose (Dextrose 50% 50ML Syringe) 25-50ML 25ML FOR ... UD PRN IV 08/23/17 00:00 09/22/17 00:00 Glucagon (Glucagon Inj) 1 mg UD PRN SQ 08/23/17 00:00 09/22/17 00:00 Carbohydrates (Carbohydrates For Hypoglycemia) 15-30 GRAMS 15 grams if BSG 54-69... UD PRN PO 08/23/17 00:00 09/22/17 00:00 Prochlorperazine Edisylate 5 mg/ Syringe 5 ml @ 5 mls/min Q6H PRN IV 08/23/17 00:00 09/22/17 00:00 Allopurinol (Zyloprim Tab) 150 mg DAILY PO 08/23/17 09:00 09/22/17 08:59 08/24/17 09:45 150 MG Losartan Potassium (coZAAR TAB) 25 mg DAILY PO 08/23/17 09:00 6/7/18 08:59 08/24/17 09:45 25 MG Miscellaneous Information (Order Awaiting Action) 1 ea QS N/A 08/23/17 08:00 09/22/17 07:59 Haloperidol (Haldol Tab) 2 mg Q4H PRN PO 08/23/17 00:00 09/22/17 00:00 Haloperidol Lactate (Haldol Inj) 2 mg Q2H PRN IM 08/23/17 00:00 09/22/17 00:00 Miscellaneous (Iv Fluids Completed) 1 ea PRN PRN N/A 08/23/17 00:45 08/23/18 00:44 Ascorbic Acid (Vitamin C Tab) 500 mg DAILY PO 08/24/17 09:00 09/23/17 08:59 08/24/17 09:44 500 MG Aspirin (Ecotrin Tab) 81 mg DAILY PO 08/24/17 09:00 09/23/17 08:59 08/24/17 09:44 81 MG Atorvastatin Calcium (Lipitor Tab) 20 mg HS PO 08/23/17 21:00 09/22/17 20:59 08/23/17 21:51 20 MG Vitamin B Complex (Vitamin B Complex) 1 tab DAILY PO 08/24/17 09:00 09/23/17 08:59 08/24/17 09:44 1 TAB Cholecalciferol (Vitamin D Tab) 1,000 inter.unit DAILY PO 08/24/17 09:00 09/23/17 08:59 08/24/17 09:47 1,000 INTER.UNIT Lorazepam (Ativan Tab) 0.5 mg DAILY PRN PO 08/23/17 18:30 09/22/17 18:29 Trazodone HCl (Desyrel Tab) 50 mg HS PRN PO 08/23/17 18:30 09/22/17 18:29 Insulin Glargine (Lantus Solostar Pen) 10 units Q12 SC 08/24/17 09:00 09/23/17 08:59 08/24/17 09:42 10 UNITS
[2017-08-25] MEDS: FLUOROMETHOLONE~ORDER AWAITING ACTION SCH ×3 (07:10→15:26)
[2017-08-25] MEDS: ACETAMINOPHEN 325 MG TAB PO PRN (07:13)
[2017-08-25 07:54] VITALS: BP 160/82; PULSE 63; TEMP 36.7; O2SAT 98
[2017-08-25] MEDS: LOSARTAN POTASSIUM 25 MG TAB PO SCH (08:33)
[2017-08-25] MEDS: CHOLECALCIFEROL 1000 INTER.UNIT TAB PO SCH (08:33)
[2017-08-25] MEDS: VITAMIN B COMPLEX TAB PO SCH (08:34)
[2017-08-25] MEDS: ASCORBIC ACID 500 MG TAB PO SCH (08:34)
[2017-08-25] MEDS: ASPIRIN 81 MG ECTAB PO SCH (08:34)
[2017-08-25] MEDS: ALLOPURINOL 300 MG TAB PO SCH (08:34)
[2017-08-25] MEDS: ENOXAPARIN 40 MG/0.4 ML SYR SQ SCH (08:35)
[2017-08-25] MEDS: INSULIN GLARGINE SOLOSTAR 100 UNITS/ML 3 ML PEN SC SCH ×2 (08:37→21:14)
[2017-08-25] MEDS: INSULIN ASPART 100 UNITS/ML 3 ML PEN SC SCH ×4 (08:45→21:14)
[2017-08-25 14:56] VITALS: BP 124/78; PULSE 64; TEMP 36.8; O2SAT 97
[2017-08-25] MEDS: ACETAMINOPHEN 325 MG TAB PO SCH (18:41)
[2017-08-25] MEDS: ATORVASTATIN 20 MG TAB PO SCH (21:13)
[2017-08-25 23:16] VITALS: BP 127/74; PULSE 72; TEMP 36.8; O2SAT 98
[2017-08-26] MEDS: ACETAMINOPHEN 325 MG TAB PO SCH ×2 (02:39→10:44)
--- NOTE | 2017-08-26 05:44 | Progress Note ---
Medicine Progress Note Date & Time of Visit: August 25, 2017 at 18:11. Subjective 76-year-old man with Alzheimer's dementia presents secondary to pelvic fracture secondary to mechanical fall at home. Patient reports the pain is currently controlled. He is tolerating p.o. He denies any issues at this time. is at bedside and all questions were answered. Objective Last 8 Hrs Date Time Temp Pulse Resp B/P (MAP) Pulse Ox O2 Delivery O2 Flow Rate FiO2 08/25/17 15:20 Room Air 08/25/17 14:56 36.8 64 18 124/78 (93) 97 Room Air Physical Exam: GEN: WNWD, in no acute distress, alert and appropriate HEENT: NC/AT, normal sclerae, MMM CARDIO: reg rate, S1/2 heard without m/g/r LUNGS: CTA bilaterally, no crackles, rales or wheezes, good diaphragmatic excursion ABD: soft, non-tender, non-distended, no rebound or guarding, +BS EXTREMITY: RP and DP palpable 2+ bilat, no LE swelling or edema, extremities are warm and well-perfused NEURO: CN 2-12 grossly intact, no gross focal deficits. MUSC: moving all extremities with ease, no gross focal deficits. SKIN: warm and dry Laboratory Results: 08/22/17 15:34 Test 08/22/17 15:34 08/23/17 04:45 08/23/17 06:38 08/25/17 20:39 Prothrombin Time 10.7 SECONDS (9.0-12.0) Prothromb Time International Ratio 1.0 (0.9-1.1) Anion Gap 9.0 mmol/L (3-11) Est Creatinine Clear Calc Drug Dose 70.4 ml/min BUN/Creatinine Ratio 19.9 (10-20) Estimated Average Glucose 223 mg/dl Hemoglobin A1c 9.4 % (4.5-5.6) Calcium Level 9.5 mg/dl (8.5-10.1) Total Bilirubin 0.7 mg/dl (0.2-1) Aspartate Amino Transf (AST/SGOT) 37 U/L (15-37) Alanine Aminotransferase (ALT/SGPT) 49 U/L (12-78) Alkaline Phosphatase 111 U/L (45-117) Troponin I < 0.015 ng/ml (0-0.045) Total Protein 8.4 gm/dl (6.4-8.2) Albumin 4.4 gm/dl (3.4-5.0) Globulin 4.0 gm/dl (2.5-4.0) Albumin/Globulin Ratio 1.1 (0.9-2) Thyroid Stimulating Hormone (TSH) 1.710 uIu/ml (0.300-4.500) Urine Color YELLOW Urine Appearance CLEAR (CLEAR) Urine pH 5.0 (4.5-7.5) Urine Specific Marshall 1.040 (1.000-1.030) Urine Protein NEG (NEG) Urine Glucose (UA) 3+ (NEG) Urine Ketones 1+ (NEG) Urine Occult Blood NEG (NEG) Urine Nitrite NEG (NEG) Urine Bilirubin NEG (NEG) Urine Urobilinogen NEG (NEG) Urine Leukocyte Esterase NEG (NEG) RDW Standard Deviation 42.7 fL (36.4-46.3) RDW Coefficient of Variation 13.3 % (11.5-14.5) White Blood Count 7.27 K/uL (4.8-10.8) Red Blood Count 4.80 M/uL (4.7-6.1) Hemoglobin 14.9 g/dL (14.0-18.0) Hematocrit 42.0 % (42-52) Mean Corpuscular Volume 87.5 fL (80-100) Mean Corpuscular Hemoglobin 31.0 pg (25-34) Mean Corpuscular Hemoglobin Concent 35.5 g/dl (32-36) Platelet Count 257 K/uL (130-400) Mean Platelet Volume 10.3 fL (7.4-10.4) Neutrophils (%) (Auto) 47.5 % Lymphocytes (%) (Auto) 36.2 % Monocytes (%) (Auto) 12.9 % Eosinophils (%) (Auto) 2.2 % Basophils (%) (Auto) 0.6 % Neutrophils # (Auto) 3.46 K/uL (1.4-6.5) Lymphocytes # (Auto) 2.63 K/uL (1.2-3.4) Monocytes # (Auto) 0.94 K/uL (0.11-0.59) Eosinophils # (Auto) 0.16 K/uL (0-0.5) Basophils # (Auto) 0.04 K/uL (0-0.2) Immature Granulocyte % (Auto) 0.6 % Immature Granulocyte # (Auto) 0.04 K/uL (0.00-0.02) Bedside Glucose 183 mg/dl (70-99) Test 08/26/17 04:44 Last 24 Hours Test 08/24/17 21:02 08/25/17 08:20 08/25/17 12:08 Bedside Glucose 217 mg/dl 170 mg/dl 225 mg/dl Assessment & Plan 76-year-old man with Alzheimer's dementia presents secondary to pelvic fracture secondary to mechanical fall at home. Patient reports the pain is currently controlled. He is tolerating p.o. He denies any issues at this time. is at bedside and all questions were answered. 1. Pelvic fracture secondary to mechanical fall-evaluated by orthopedics who did not recommend surgical fixation. Patient is weightbearing as tolerated and will proceed to rehabilitation once authorization comes through. Pain control with medications as needed. Daily PT/OT. Some pain with bearing weight only, added scheduled Tylenol with consideration to continue this on discharge. 2. Alzheimer's dementia-mentation at baseline per family. is at bedside. 3. Diabetes type 2-holding p.o. medications including Jardiance and metformin. Insulin sliding scale plus Lantus with tighter scale today in addition of carbohydrate coverage for improvement in control. 4. Hypertension-stable DVT prophylaxis-Lovenox Full code Disposition-to [facility] early tomorrow am per Case Management. He is medically stable for discharge. Kerri Rowland DO [facility] Consultants: [place]-Dr. Anthony Pittman Current Inpatient Medications: Current Inpatient Medications Medications (Trade) Dose Ordered Sig/Aniyah Route Start Time Stop Time Status Last Admin Dose Admin Enoxaparin Sodium (Lovenox Inj) 40 mg Q24H SQ 08/23/17 09:00 09/22/17 08:59 08/25/17 08:35 40 MG Acetaminophen (Tylenol Tab) 650 mg Q4H PRN PO 08/23/17 00:00 09/22/17 00:00 08/25/17 07:13 650 MG Insulin Aspart (novoLOG ASPART) SLIDING SCALE If C... ACHS SC 08/23/17 08:00 09/22/17 07:59 08/25/17 13:28 11 UNITS Glucose (Glucose 40% Gel) 15-30 GRAMS 15 GRAMS... UD PRN PO 08/23/17 00:00 09/22/17 00:00 Glucose (Glucose Chew Tab) 4-8 Tablets 4 Tabl... UD PRN PO 08/23/17 00:00 09/22/17 00:00 Dextrose (Dextrose 50% 50ML Syringe) 25-50ML 25ML FOR ... UD PRN IV 08/23/17 00:00 09/22/17 00:00 Glucagon (Glucagon Inj) 1 mg UD PRN SQ 08/23/17 00:00 09/22/17 00:00 Carbohydrates (Carbohydrates For Hypoglycemia) 15-30 GRAMS 15 grams if BSG 54-69... UD PRN PO 08/23/17 00:00 09/22/17 00:00 Prochlorperazine Edisylate 5 mg/ Syringe 5 ml @ 5 mls/min Q6H PRN IV 08/23/17 00:00 09/22/17 00:00 Allopurinol (Zyloprim Tab) 150 mg DAILY PO 08/23/17 09:00 09/22/17 08:59 08/25/17 08:34 150 MG Losartan Potassium (coZAAR TAB) 25 mg DAILY PO 08/23/17 09:00 09/22/17 08:59 08/25/17 08:33 25 MG Miscellaneous Information (Order Awaiting Action) 1 ea QS N/A 08/23/17 08:00 09/22/17 07:59 Haloperidol (Haldol Tab) 2 mg Q4H PRN PO 08/23/17 00:00 09/22/17 00:00 Haloperidol Lactate (Haldol Inj) 2 mg Q2H PRN IM 08/23/17 00:00 09/22/17 00:00 Miscellaneous (Iv Fluids Completed) 1 ea PRN PRN N/A 08/23/17 00:45 08/23/18 00:44 Ascorbic Acid (Vitamin C Tab) 500 mg DAILY PO 08/24/17 09:00 09/23/17 08:59 08/25/17 08:34 500 MG Aspirin (Ecotrin Tab) 81 mg DAILY PO 08/24/17 09:00 09/23/17 08:59 08/25/17 08:34 81 MG Atorvastatin Calcium (Lipitor Tab) 20 mg HS PO 08/23/17 21:00 09/22/17 20:59 08/24/17 21:02 20 MG Vitamin B Complex (Vitamin B Complex) 1 tab DAILY PO 08/24/17 09:00 09/23/17 08:59 08/25/17 08:34 1 TAB Cholecalciferol (Vitamin D Tab) 1,000 inter.unit DAILY PO 08/24/17 09:00 09/23/17 08:59 08/25/17 08:33 1,000 INTER.UNIT Lorazepam (Ativan Tab) 0.5 mg DAILY PRN PO 08/23/17 18:30 09/22/17 18:29 Trazodone HCl (Desyrel Tab) 50 mg HS PRN PO 08/23/17 18:30 09/22/17 18:29 Insulin Glargine (Lantus Solostar Pen) 15 units Q12 SC 08/25/17 09:00 09/23/17 08:59 08/25/17 08:37 15 UNITS
--- NOTE | 2017-08-26 06:22 | Discharge Instructions ---
Discharge Instructions Date of Service August 25, 2017. Admission Reason for Admission: Pelvic Fracture Discharge Discharge Diagnosis / Problem: Pelvic fracture Discharge Goals Goal(s): Decrease discomfort, Improve function, Increase independence, Improve disease control, Prevent Disease Progression Activity Recommendations Activity Limitations: per Instructions/Follow-up section . Instructions / Follow-Up Instructions / Follow-Up Please continue all medications as listed on discharge list. It is recommended that you follow-up with your primary care physician within one week of discharge from the rehabilitation program. You will need serial x-rays to confirm and track healing of your pelvic fracture as an outpatient. These can be ordered through your orthopedic surgeon who would like to see you in two weeks time. You were seen by Dr. Anthony Pittman in the hospital. Please call [facility] to schedule follow-up with him within two weeks of discharge from the hospital. It was a pleasure taking care of you! Call if you have any questions or problems. You can reach a [facility] hospitalist on duty at [facility] 24 hours a day by calling [phone]. Take care of yourself. Kerri Rowland DO [facility] Hospitalist Current Hospital Diet Patient's current hospital diet: Diabetes Type 2 Diet, AHA Diet (Heart Healthy) Discharge Diet Recommended Diet: AHA Diet (Heart Healthy) Procedures Procedures Performed: None. Pending Studies Studies pending at discharge: no Laboratory Results Hemoglobin A1c Test 08/22/17 15:34 Range/Units Estimated Average Glucose 223 mg/dl Hemoglobin A1c 9.4 H 4.5-5.6 % Medical Emergencies . Who to Call and When: Medical Emergencies: If at any time you feel your situation is an emergency, please call 911 immediately. . Non-Emergent Contact Non-Emergency issues call your: Primary Care Provider, Surgeon . . "Provider Documentation" section prepared by Kerri Rowland. .
[2017-08-26] MEDS ORDERED: ACET650T51 PO (06:24)
--- NOTE | 2017-08-26 06:27 | Discharge Summary ---
Discharge Summary Date of Service August 26, 2017. Discharge Summary Admission Date: August 23, 2017 at 18:30 Discharge Date: August 25, 2017 Discharge Disposition: [facility] facility Principal Diagnosis: pelvic ring fracture s/p mechanical fall at home dementia without behavioral disturbance Procedures: None. Vaccinations: Pneumovax Consultations: Ortho-Dr. Anthony Pittman Pending Studies/Follow-Up: see instructions below. Medication Reconciliation New Medications: Acetaminophen (8 Hour Pain Reliever) 650 Mg Tab 650 MG PO Q8H for 14 Days, #42 TAB Continued Medications: Allopurinol (Allopurinol) 300 Mg Tab 150 MG PO DAILY Ascorbic Acid (Vitamin C) 500 Mg Tab 500 MG PO DAILY Aspirin (Aspirin EC Low Dose) 81 Mg Ectab 81 MG PO DAILY Atorvastatin (Lipitor) 20 Mg Tab 20 MG PO HS, TAB B-Complex Vitamins (B Complex) 1 Cap Cap 1 TAB PO DAILY Cholecalciferol (Vitamin D3) 1,000 Inter.unit Tab 1000 UNITS PO DAILY Empagliflozin (Jardiance) 10 Mg Tab 10 MG PO DAILY Fluorometholone (Ophth) (Fluorometholone) 0.1 % Jemima 1 DROP OPR DAILY Insulin Isophane & Reg (Human) (Novolin 70/30 Relion) 1 Inj Inj 20 UNITS SC UD Inject 20 Units subcutaneously if BSG is >200 before dinner. Lorazepam (Ativan) 0.5 Mg Tab 0.5 MG PO DAILY PRN for Anxiety/Agitation, TAB Losartan Potassium (Cozaar) 25 Mg Tab 25 MG PO DAILY, TAB Metformin HCl (Metformin Hydrochloride) 1,000 Mg Tab 1000 MG PO BID Trazodone Hcl (Trazodone) 50 Mg Tab 50 MG PO HS PRN for insomnia, TAB Admission Information HPI (per Admitting provider): HISTORY OF PRESENT ILLNESS: History obtained from patient, , and records. Patient is a fair historian. Medical history is significant for dementia, hypertension, colon cancer, status post surgery, DM2 on oral medications, past tobacco abuse. Recent confinement in March 2012 for acute appendicitis sp appendectomy. Over the weekend, the patient had low back pain and hip pain after a mechanical fall witnessed by witnessed by . No chest pain, no sob, no syncope. Brought to the Emergency Room. RLE CT showed a nondisplaced subtle cortical buckle fracture, right inferior pubic ring. Patient is still having trouble moving with the pain. Physical Exam (per Admitting): PHYSICAL EXAMINATION: VITAL SIGNS: Blood pressure was noted to be 120/69, pulse 90, RR 18 temperature 36.8, saturations 97% on room air. GENERAL: Noted to be pleasant, in no respiratory distress, demented, looks younger for his stated age. SKIN: Normal color. Warm. HEENT: [place] palpebral conjunctivae. No ptosis. Dry mucosa. NECK: Supple, nontender. CHEST: Clear to auscultation. No tenderness. HEART: Regular rate and rhythm. No murmur. ABDOMEN: Some distention, nontender. EXTREMITIES: No overt tenderness. No other gross deformities. NEUROLOGIC: Coherent, demented, no facial asymmetry. No other gross focality. Gait and stance not assessed. Hospital Course 76-year-old man with Alzheimer's dementia presents secondary to pelvic fracture secondary to mechanical fall at home. Patient reports the pain is currently controlled. He is tolerating p.o. He denies any issues at this time. is at bedside and all questions were answered. Decided prior to discharge to continue with scheduled Tylenol as was concerned patient would not ask for pain medications and still suffer pain. 1. Pelvic fracture secondary to mechanical fall-evaluated by orthopedics who did not recommend surgical fixation. Patient is weightbearing as tolerated and will proceed to rehabilitation once authorization comes through. Pain control with medications as needed. Daily PT/OT. Some pain with bearing weight only, added scheduled Tylenol with consideration to continue this on discharge. 2. Alzheimer's dementia-mentation at baseline per family. is at bedside. 3. Diabetes type 2-holding p.o. medications including Jardiance and metformin. Insulin sliding scale plus Lantus with tighter scale today in addition of carbohydrate coverage for improvement in control. 4. Hypertension-stable DVT prophylaxis-Lovenox Full code [facility] On day of discharge patient was mentating at baseline and tolerating p.o. He was hemodynamically stable and afebrile and was discharged in stable condition to rehabilitation. Kerri Rowland DO [facility] Total time spent on discharge = 60 minutes This includes examination of the patient, discharge planning, medication reconciliation, and communication with other providers. [place] [address] Discharge Medical Patient Name: Theodore Lama Unit Number: [id number] Date of : 1940 Patient Status: Admitted Inpatient Attending Doctor: Kerri Rowland DO DI: Medical v5 Discharge Instructions Date of Service August 25, 2017. Admission Reason for Admission: Pelvic Fracture Discharge Discharge Diagnosis / Problem: Pelvic fracture Discharge Goals Goal(s): Decrease discomfort, Improve function, Increase independence, Improve disease control, Prevent Disease Progression Activity Recommendations Activity Limitations: per Instructions/Follow-up section . Instructions / Follow-Up Instructions / Follow-Up Please continue all medications as listed on discharge list. It is recommended that you follow-up with your primary care physician within one week of discharge from the rehabilitation program. You will need serial x-rays to confirm and track healing of your pelvic fracture as an outpatient. These can be ordered through your orthopedic surgeon who would like to see you in two weeks time. You were seen by Dr. Anthony Pittman in the hospital. Please call [facility] to schedule follow-up with him within two weeks of discharge from the hospital. It was a pleasure taking care of you! Call if you have any questions or problems. You can reach a [facility] hospitalist on duty at [facility] 24 hours a day by calling [phone]. Take care of yourself. Kerri Rowland DO [facility] Hospitalist Current Hospital Diet Patient's current hospital diet: Diabetes Type 2 Diet, AHA Diet (Heart Healthy) Discharge Diet Recommended Diet: AHA Diet (Heart Healthy) Procedures Procedures Performed: None. Pending Studies Studies pending at discharge: no Laboratory Results Hemoglobin A1c Test 08/22/17 15:34 Range/Units Estimated Average Glucose 223 mg/dl Hemoglobin A1c 9.4 H 4.5-5.6 % Medical Emergencies . Who to Call and When: Medical Emergencies: If at any time you feel your situation is an emergency, please call 911 immediately. . Non-Emergent Contact Non-Emergency issues call your: Primary Care Provider, Surgeon . . "Provider Documentation" section prepared by Kerri Rowland. . Additional Copies To Zack Gerardo M.D.
[2017-08-26 07:04] VITALS: BP 138/92; PULSE 65; TEMP 36.6; O2SAT 98
[2017-08-26] MEDS: FLUOROMETHOLONE~ORDER AWAITING ACTION SCH ×2 (08:00)
[2017-08-26] MEDS: ENOXAPARIN 40 MG/0.4 ML SYR SQ SCH (08:58)
[2017-08-26] MEDS: ALLOPURINOL 300 MG TAB PO SCH (08:59)
[2017-08-26] MEDS: ASPIRIN 81 MG ECTAB PO SCH (09:00)
[2017-08-26] MEDS: LOSARTAN POTASSIUM 25 MG TAB PO SCH (09:00)
[2017-08-26] MEDS: CHOLECALCIFEROL 1000 INTER.UNIT TAB PO SCH (09:00)
[2017-08-26] MEDS: ASCORBIC ACID 500 MG TAB PO SCH (09:01)
[2017-08-26] MEDS: VITAMIN B COMPLEX TAB PO SCH (09:01)
[2017-08-26] MEDS: INSULIN GLARGINE SOLOSTAR 100 UNITS/ML 3 ML PEN SC SCH (09:08)
[2017-08-26] MEDS: INSULIN ASPART 100 UNITS/ML 3 ML PEN SC SCH (09:08)
[2017-08-26 09:37] VITALS: BP 138/92; PULSE 65; TEMP 36.6; O2SAT 98
== END 2017-08-26 10:50 | DRG 536 ==
LOC: EDBD 15:19 → C.EDB 15:19 → C.MSN 22:52 → ENRESERV 22:59 → OBSVTOIN 08-23 18:30
PROVIDERS: ADMIT Hospitalist; ATTEND Internal Medicine
DX: S32.810A Multiple fractures of pelvis with stable disruption of pelvic ring, initial encounter for closed fracture (principal); W19.XXXA Unspecified fall, initial encounter; G30.9 Alzheimer's disease, unspecified; F02.80 Dementia in other diseases classified elsewhere, unspecified severity, without behavioral disturbance, psychotic disturbance, mood disturbance, and anxiety; E11.9 Type 2 diabetes mellitus without complications; I10 Essential (primary) hypertension; Y92.009 Unspecified place in unspecified non-institutional (private) residence as the place of occurrence of the external cause; Z85.038 Personal history of other malignant neoplasm of large intestine; Z92.21 Personal history of antineoplastic chemotherapy; Z90.49 Acquired absence of other specified parts of digestive tract; Z98.890 Other specified postprocedural states; Z87.891 Personal history of nicotine dependence; Z79.84 Long term (current) use of oral hypoglycemic drugs; Z79.899 Other long term (current) drug therapy; Z88.1 Allergy status to other antibiotic agents; Z80.3 Family history of malignant neoplasm of breast; Z80.7 Family history of other malignant neoplasms of lymphoid, hematopoietic and related tissues; Z81.8 Family history of other mental and behavioral disorders

== ENCOUNTER 2017-12-02 12:24 | Inpatient (IN) | payer OTHER ==
[~2017-12-02] VITALS: Ht 182.9 cm; Wt 77.7 kg
[~2017-12-02 12:24] MED LIST changes: +ACET-1047 PO; +ASCO500T3 PO; -ASPI-319 PO; +B-CO1CAP3 PO; +FLUO0.1S12 OPR; +INSU1INJ17 SC; +LDDP5 TD; +LORA-741 PO; +LPT20 PO; +MRLP17X PO; +TRAM-10 PO; +TRAZ50TA35 PO; +VLTG EXT
[2017-12-02 13:01] LABS: BASO % 0.1 %; BASO ABS # 0.02 K/uL (0-0.2); EOS % 0.2 %; EOS ABS # 0.03 K/uL (0-0.5); HEMATOCRIT 39.9 % (42-52); HEMOGLOBIN 14.7 g/dL (14.0-18.0); IG# 0.06 K/uL (0.00-0.02); LYMPH % 15.9 %; LYMPH ABS # 2.14 K/uL (1.2-3.4); MEAN CELL VOLUME 85.4 fL (80-100); MEAN CORPUSCULAR HEMOGLOBIN 31.5 pg (25-34); MEAN CORPUSCULAR HGB CONC 36.8 g/dl (32-36); MEAN PLATELET VOLUME 10.4 fL (7.4-10.4); MONO % 9.2 %; MONO ABS # 1.24 K/uL (0.11-0.59); NEUT % 74.2 %; NEUT ABS # 9.94 K/uL (1.4-6.5); PLATELET COUNT 217 K/uL (130-400); RED CELL DISTRIBUTION WIDTH SD 39.8 fL (36.4-46.3); WHITE BLOOD COUNT 13.43 K/uL (4.8-10.8)
[2017-12-02 13:10] LABS: PTT PATIENT 24.1 SECONDS (21.0-31.0)
--- NOTE | 2017-12-02 13:16 | DIAGNOSTIC IMAGING REPORT ---
HEAD WITHOUT CONTRAST (CT) CT DOSE: 906.61 mGy.cm HISTORY: Mental status change EVALUATE WEAKNESS TECHNIQUE: Multiaxial CT images of the head were performed without the use of intravenous contrast. A dose lowering technique was utilized adhering to the principles of ALARA. Comparison: 08/22/2017 Findings: The paranasal sinuses and mastoid air cells are clear. The calvarium and skull base are intact. The ventricles and sulci are within normal limits. There is no mass, hematoma, midline shift, or acute infarct. Impression: No acute intracranial abnormality. Age-related atrophy and chronic small vessel change The above report was generated using voice recognition software. It may contain grammatical, syntax or spelling errors. Electronically signed by: Trav Adame M.D. 12/02/2017 1:14 PM Dictated Date/Time: 12/02/2017 1:12 PM
--- NOTE | 2017-12-02 13:19 | DIAGNOSTIC IMAGING REPORT ---
CERVICAL SPINE W/O CT DOSE: HISTORY: Trauma. Mental status change. fall TECHNIQUE: Multiaxial CT images of the cervical spine were performed and reformatted in the sagittal and coronal plane without the use of contrast. A dose lowering technique was utilized adhering to the principles of ALARA. COMPARISON: None. FINDINGS: No fractures. No subluxation. Prevertebral soft tissues and the C1-C2 interval are intact. No pneumothorax. IMPRESSION: No fractures within the cervical spine. Considerable degenerative change. The above report was generated using voice recognition software. It may contain grammatical, syntax or spelling errors. Electronically signed by: Trav Adame M.D. 12/02/2017 1:17 PM Dictated Date/Time: 12/02/2017 1:15 PM
[2017-12-02 13:28] LABS: ALBUMIN 3.7 gm/dl (3.4-5.0); ALKALINE PHOSPHATASE 140 U/L (45-117); ALT/SGPT 38 U/L (12-78); AST/SGOT 37 U/L (15-37); BLOOD UREA NITROGEN 11 mg/dl (7-18); CALCIUM 9.8 mg/dl (8.5-10.1); CARBON DIOXIDE 23 mmol/L (21-32); CREATININE 0.88 mg/dl (0.60-1.40); GLUCOSE 181 mg/dl (70-99); LIPASE 36 U/L (73-393); POTASSIUM 3.9 mmol/L (3.5-5.1); SODIUM 138 mmol/L (136-145); TOTAL PROTEIN 7.8 gm/dl (6.4-8.2)
[2017-12-02] MEDS ORDERED: ALLO300T2 PO (13:47)
[2017-12-02] MEDS ORDERED: METF-384 PO (13:47)
[2017-12-02] MEDS ORDERED: ATOR-22 PO (13:47)
[2017-12-02] MEDS ORDERED: EMPA1TAB PO (13:47)
[2017-12-02] MEDS ORDERED: TRAZ1TAB49 PO (13:47)
--- NOTE | 2017-12-02 14:13 | DIAGNOSTIC IMAGING REPORT ---
CHEST 1 VW FRONT-NOT PORTABLE CLINICAL HISTORY: 77 years-old Male presenting with FALL, LT HIP PAIN. TECHNIQUE: Portable upright AP view of the chest was obtained. COMPARISON: 08/22/2017. FINDINGS: Cardiomediastinal silhouette normal. No focal opacity. No large effusion or pneumothorax. Degenerative changes of the left glenohumeral joint. Upper abdomen normal. IMPRESSION: 1. No acute cardiopulmonary disease. Electronically signed by: Adam Quintero M.D. 12/02/2017 2:12 PM Dictated Date/Time: 12/02/2017 2:11 PM
--- NOTE | 2017-12-02 14:15 | DIAGNOSTIC IMAGING REPORT ---
R KNEE 3 VIEWS CLINICAL HISTORY: 77 years-old Male presenting with fall, some pain. TECHNIQUE: Frontal, lateral, and sunrise views of the right knee were obtained. COMPARISON: None. FINDINGS: Knee joint congruent. Osteopenia suspected. Trace osteophytosis at the patellofemoral compartment. No acute fracture or malalignment. No advanced degenerative change. Atherosclerosis. IMPRESSION: No acute osseous injury. Electronically signed by: Adam Quintero M.D. 12/02/2017 2:14 PM Dictated Date/Time: 12/02/2017 2:12 PM
--- NOTE | 2017-12-02 14:18 | DIAGNOSTIC IMAGING REPORT ---
R PELVIS/UNILATERAL HIP 2-3VIEWS CLINICAL HISTORY: RT HIP PAIN pain COMPARISON: None. DISCUSSION: Findings suspect for a subcapital fracture right hip. No evidence of dislocation. No evidence for acetabular protrusion. There is no evidence for soft tissue swelling. IMPRESSION: Probable subcapital fracture right hip versus degenerative change. CT of the right hip would be helpful as follow-up. The above report was generated using voice recognition software. It may contain grammatical, syntax or spelling errors. Electronically signed by: Trav Adame M.D. 12/02/2017 2:17 PM Dictated Date/Time: 12/02/2017 2:15 PM
--- NOTE | 2017-12-02 14:47 | DIAGNOSTIC IMAGING REPORT ---
RIGHT HIP CT CT DOSE: 368.91 mGy.cm HISTORY: Right hip pain. fall, pain, ?frx TECHNIQUE: Multiaxial CT images of the right hip were performed and reformatted in the sagittal and coronal plane without the use of contrast. A dose lowering technique was utilized adhering to the principles of ALARA. COMPARISON: Right hip 12/02/2017. FINDINGS: There is acute impacted right subcapital femoral neck fracture. No dislocation. Healing left inferior pubic ramus fracture. Old, healed right inferior pubic ramus fracture. IMPRESSION: 1. Acute impacted right subcapital femoral neck fracture. 2. Healing left inferior pubic ramus fracture. Electronically signed by: Christian Brandon M.D. 12/02/2017 2:45 PM Dictated Date/Time: 12/02/2017 2:40 PM
[2017-12-02] MEDS ORDERED: ACETAMINOPHEN 500 MG TAB PO STA (15:28)
[2017-12-02] MEDS ORDERED: FENTANYL CITRATE INJ 50 MCG/1 ML 2 ML VIAL IV ONE (15:30)
[2017-12-02] MEDS ORDERED: MoRPHine SULFATE 2 MG/ML CARP IV PRN (17:30)
[2017-12-02] MEDS ORDERED: ONDANSETRON INJ 2 MG/ML 2 ML VIAL IV PRN (17:30)
[2017-12-02] MEDS ORDERED: ACETAMINOPHEN 325 MG TAB PO PRN (17:30)
[2017-12-02] MEDS ORDERED: ACET-1311 PO (17:31)
[2017-12-02] MEDS ORDERED: LOSA1TAB PO (17:31)
[2017-12-02] MEDS ORDERED: INSU70IN2 SC (17:31)
[2017-12-02] MEDS ORDERED: ASCO500T16 PO (17:31)
[2017-12-02 17:40] VITALS: O2SAT 96; BMI 23.2
[2017-12-02] MEDS ORDERED: LORA-741 PO (17:43)
[2017-12-02] MEDS ORDERED: SOD PHOSPHATE/SOD BIPHOSPHATE ENEMA 132 ML BTL PR PRN (17:45)
[2017-12-02] MEDS ORDERED: NALOXONE HCL 0.4 MG/1 ML VIAL/CARP IV PRN (17:45)
[2017-12-02] MEDS ORDERED: GLUCOSE 40% GEL 15 GM TUBE PO PRN (17:45)
[2017-12-02] MEDS ORDERED: GLUCOSE 10 TABS/TUBE PO PRN (17:45)
[2017-12-02] MEDS ORDERED: DEXTROSE 50% 50 ML SYR IV PRN (17:45)
[2017-12-02] MEDS ORDERED: BISACODYL 10 MG SUPP PR PRN (17:45)
[2017-12-02] MEDS ORDERED: CARBOHYDRATES FOR HYPOGLYCEMIA PO PRN (17:45)
[2017-12-02] MEDS ORDERED: GLUCAGON FOR INJ 1 MG VIAL SQ PRN (17:45)
[2017-12-02] MEDS ORDERED: POLYETHYLENE (MIRALAX) 17 GM PACK PO PRN (17:45)
[2017-12-02] MEDS ORDERED: MAGNESIUM HYDROXIDE SUSP 30 ML UDC PO PRN (17:45)
--- NOTE | 2017-12-02 18:19 | History and Physical ---
History & Physical Date & Time of Service: Dec 02, 2017 at 17:41 Chief Complaint: fall Primary Care Physician: Danielle Jones D.O. History of Present Illness Source: patient, spouse, clinic records, hospital records Pt is 77 y/o M with PMH HTN, DM II, Alzheimer dementia, gout presented to ER with complaint of fall. History obtained from pt's secondary to pt's mental status with dementia. Patient's states patient is at his baseline mental status today. Notes yesterday seemed a little more confused and was agitated so given 1 dose of Ativan yesterday, none today. Patient with history of hospitalization 08/23/17-08/26/17 for mechanical fall and pelvic fracture, nonoperative. History recurrent hospitalization 10/28/17-10/31/17 for mechanical fall, and patient was discharged to [facility] and was there approximately 2 weeks then discharged to [facility] ( reports he was listed as flight risk and was eventually d/c home). He has been home approximately 1 week. Uses walker to assist in ambulation and states pt was doing well. Pt's does all his care. This morning woke up to hearing a "thud" and came out in the living room and found patient was lying on floor, appeared that he hit his right side of his head off of TV stand. states patient was awake, was lying on left side and unable to get up. She reports initially thought he was having right knee pain. Denies any known fever or chills, rigors, diarrhea, melena, hematochezia, rashes, cough, noted SOB. Past Medical/Surgical History Medical Problems: (1) Alzheimer's dementia Status: Chronic (2) DM type 2 (diabetes mellitus, type 2) Status: Chronic (3) Gout Status: Chronic (4) history of bowel resection Status: Resolved (5) History of colon cancer Status: Chronic (6) HTN (hypertension) Status: Chronic (7) Kidney stones Status: Chronic (8) Recurrent falls Status: Chronic Surgical Problems: (1) History of appendectomy Status: Resolved (2) Hx of cornea transplant Permanent Comment: right eye Status: Resolved Social History Problems: (1) Diabetes Status: Chronic Family History Diabetes mellitus Hypertension Social History Smoking Status: Former Smoker Smokeless Tobacco Use: No Alcohol Use: none Drug Use: none Marital Status: Housing status: lives with significant other Occupational Status: retired Immunizations History of Influenza Vaccine: Yes History of Tetanus Vaccine?: Yes History of Pneumococcal: yes, unknown date History of Hepatitis B Vaccine: No Allergies Coded Allergies: Tetracycline (Verified Adverse Reaction, Unknown, SEVERE CONSTIPATION, ) Uncoded Allergies: ADHESIVE TAPE (Allergy, Intermediate, ERRYTHEMA, 09/25/13) Home Medications Scheduled Allopurinol (Zyloprim), 150 MG PO DAILY Ascorbic Acid (Ascorbic Acid), 500 MG PO DAILY Atorvastatin (Lipitor), 20 MG PO DAILY Empagliflozin (Jardiance), 10 MG PO DAILY Losartan Potassium (Cozaar), 25 MG PO DAILY Metformin Hcl (Glucophage), 1,000 MG PO BIDM Trazodone HCl (Trazodone HCl), 50 MG PO HS Scheduled PRN Acetaminophen (Tylenol), 650 MG PO Q8 PRN for Pain or Fever Insulin Human Isophan/Regular (Novolin 70/30), 20 UNITS SC UD PRN for hyperglycemia Lorazepam (Ativan), 0.5 MG PO DAILY PRN for Agitation Review of Systems Further ROS unable to be obtained secondary to pt's mental status/dementia Physical Exam Vital Signs Date Time Temp Pulse Resp B/P (MAP) Pulse Ox O2 Delivery O2 Flow Rate FiO2 12/02/17 17:06 73 18 178/78 96 Room Air 12/02/17 15:37 70 18 151/83 95 Room Air 12/02/17 14:45 64 18 124/58 98 Room Air 12/02/17 13:25 71 12/02/17 13:25 70 16 126/78 98 Room Air 12/02/17 12:51 97 Room Air 12/02/17 12:39 36.8 80 18 125/79 95 Room Air General Appearance: WD/WN, no apparent distress (however lying on left side with right hip and knee flexed in position of comfort) Head: normocephalic (no lacerations/contusions noted) Eyes: normal inspection, PERRL, sclerae normal ENT: hearing grossly normal, pharynx normal, + pertinent finding (mucous membranes moist) Neck: supple, trachea midline, + pertinent finding (no spinous process tenderness to palpation) Respiratory/Chest: lungs clear, normal breath sounds, no respiratory distress Cardiovascular: regular rate, rhythm, normal peripheral pulses Abdomen/GI: normal bowel sounds, non tender, soft Back: normal inspection, no CVA tenderness, + pertinent finding (no spinous process tenderness to palpation) Extremities/Musculoskelatal: + pertinent finding (lying on left side with right hip and knee flexed in position of comfort, R hip and right thigh with noted tenderness to palpation, remaining RLE and LLE without obvious tenderness to palpation. Pt able to extend L hip, knee. Bilateral pedal pushes & pulls intact. BLE with brisk capillary refill, distal pulses intact) Neurologic/Psych: alert, + pertinent finding (pleasantly confused at this time , knows his , otherwise is not oriented to place, time) Skin: warm/dry Diagnostics Laboratory Results Results Past 24 Hours Test 12/02/17 12:30 12/02/17 12:49 Range/Units Urine Color YELLOW Urine Appearance CLEAR CLEAR Urine pH 5.0 4.5-7.5 Urine Specific [place] 1.040 1.000-1.030 Urine Protein NEG NEG Urine Glucose (UA) 3+ NEG Urine Ketones 1+ NEG Urine Occult Blood NEG NEG Urine Nitrite NEG NEG Urine Bilirubin NEG NEG Urine Urobilinogen NEG NEG Urine Leukocyte Esterase NEG NEG White Blood Count 13.43 4.8-10.8 K/uL Red Blood Count 4.67 4.7-6.1 M/uL Hemoglobin 14.7 14.0-18.0 g/dL Hematocrit 39.9 42-52 % Mean Corpuscular Volume 85.4 80-100 fL Mean Corpuscular Hemoglobin 31.5 25-34 pg Mean Corpuscular Hemoglobin Concent 36.8 32-36 g/dl Platelet Count 217 130-400 K/uL Mean Platelet Volume 10.4 7.4-10.4 fL Neutrophils (%) (Auto) 74.2 % Lymphocytes (%) (Auto) 15.9 % Monocytes (%) (Auto) 9.2 % Eosinophils (%) (Auto) 0.2 % Basophils (%) (Auto) 0.1 % Neutrophils # (Auto) 9.94 1.4-6.5 K/uL Lymphocytes # (Auto) 2.14 1.2-3.4 K/uL Monocytes # (Auto) 1.24 0.11-0.59 K/uL Eosinophils # (Auto) 0.03 0-0.5 K/uL Basophils # (Auto) 0.02 0-0.2 K/uL RDW Standard Deviation 39.8 36.4-46.3 fL RDW Coefficient of Variation 13.0 11.5-14.5 % Immature Granulocyte % (Auto) 0.4 % Immature Granulocyte # (Auto) 0.06 0.00-0.02 K/uL Prothrombin Time 10.6 9.0-12.0 SECONDS Prothromb Time International Ratio 1.0 0.9-1.1 Activated Partial Thromboplast Time 24.1 21.0-31.0 SECONDS Partial Thromboplastin Ratio 0.9 Sodium Level 138 136-145 mmol/L Potassium Level 3.9 3.5-5.1 mmol/L Chloride Level 105 98-107 mmol/L Carbon Dioxide Level 23 21-32 mmol/L Anion Gap 9.0 3-11 mmol/L Blood Urea Nitrogen 11 7-18 mg/dl Creatinine 0.88 0.60-1.40 mg/dl Est Creatinine Clear Calc Drug Dose 77.2 ml/min Estimated GFR () 96.0 Estimated GFR (Non- 82.9 BUN/Creatinine Ratio 12.3 10-20 Random Glucose 181 70-99 mg/dl Calcium Level 9.8 8.5-10.1 mg/dl Magnesium Level 2.2 1.8-2.4 mg/dl Total Bilirubin 0.7 0.2-1 mg/dl Direct Bilirubin 0.2 0-0.2 mg/dl Aspartate Amino Transf (AST/SGOT) 37 15-37 U/L Alanine Aminotransferase (ALT/SGPT) 38 12-78 U/L Alkaline Phosphatase 140 45-117 U/L Troponin I < 0.015 0-0.045 ng/ml Total Protein 7.8 6.4-8.2 gm/dl Albumin 3.7 3.4-5.0 gm/dl Lipase 36 73-393 U/L Thyroid Stimulating Hormone (TSH) 1.530 0.300-4.500 uIu/ml Microbiology Results 12/02/17 Urine Culture, Received Pending Diagnostic Radiology CXR: IMPRESSION: 1. No acute cardiopulmonary disease. RIGHT HIP/PELVIS X-RAY: IMPRESSION: Probable subcapital fracture right hip versus degenerative change. CT of the right hip would be helpful as follow-up. RIGHT KNEE X-RAY: IMPRESSION: No acute osseous injury. RIGHT HIP CT: IMPRESSION: 1. Acute impacted right subcapital femoral neck fracture. 2. Healing left inferior pubic ramus fracture. CT HEAD: Impression: No acute intracranial abnormality. Age-related atrophy and chronic small vessel change CT C-SPINE: IMPRESSION: No fractures within the cervical spine. Considerable degenerative change. EKG EKG: normal sinus rhythm, rate 76, no acute ST changes noted Impression Assessment and Plan Pt is 77 y/o M with PMH HTN, DM II, Alzheimer dementia, gout presented to ER with complaint of fall today. RIGHT FEMORAL NECK FRACTURE S/P FALL In ER vitals stable. CT hip: Acute impacted right subcapital femoral neck fracture. Healing left inferior pubic ramus fracture. No acute changes noted on CT head, CXR. No fractures noted on C-Spine CT, R knee xray. EKG: NSR, rate 76, no acute ST changes noted. Negative troponin. WBC: 13. Hgb: 14, Cr: 0.88, GFR: 82 Pt was given Tylenol, Fentanyl 25mcg in ER. -No hx CAD, CHF, TIA, stroke, CKD. Hx DM. Pt at lower risk for surgical cardiac event -ortho consult -NPO after midnight -morphine prn pain, hold if pt drowsy -PT/OT consult DM II Has 70/30 insulin to use at dinner if BSG >200. reports has not been on insulin since at home for the past week. Was on insulin while at [facility] as oral meds were held Gluc: 181. A1c: 8.4 on 10/28/17. -hold metformin, Jardiance -monitor BSG -basal bolus insulin per protocol -diabetic diet HTN -hold am dose of losartan as pt probable surgery tomorrow HX ALZHEIMER DEMENTIA Currently At baseline per . -watch for delirium -will hold lorazepam prn at this time as pt receiving morphine prn -hold pt's trazodone 50mg HS and decrease to 25mg HS, holding if pt drowsy GOUT -continue allopurinol HLD -continue atorvastatin DVT Prophylaxis -SCD Disposition: admit med surg Full Code as per discussion with pt's Follows with Dr Jones for routine care Case management consult for assistance as pt will likely need placement Pt was seen with Dr Perez. See addendum Pt's : Cristina [phone] Pts daughter: Ewa: [phone] Attending Addendum Pt was seen and examined. Agreed with Urvashi PINEDO exam, assessment and plan. 77 y/o M with PMH HTN, DM II, Alzheimer dementia, gout presented to ER after a fall. History is limited and obtained from due to pt dementia. Pt said that he fell because his legs gave up on him. He was recently discharged from [facility]. Pt said that pain seems to be control with the pain med he received in the ER. Pt denies any loss of consciousness or dizziness before falling. Right hip CT done in the ER showed acute impacted right subcapital femoral neck fracture. He was using a walker at home to ambulate. Denies any chest pain, palpitation, dizziness and SOB. Case discussed with Ortho Dr. Jett that planned to take him to OR tomorrow for cannulated screw fixation surgery. Ortho will discuss surgical risks with patient and his . Pt is stable to proceed with the procedure. Will keep NPO after midnight. MD Ana Resuscitation Status VTE Prophylaxis Will order VTE Prophylaxis: Yes Additional Copies To Danielle Jones D.O.
[2017-12-02] MEDS ORDERED: SODIUM CHLORIDE 0.9% 1000ML 1,000 ML IV SCH (18:30)
--- NOTE | 2017-12-02 18:33 | EMERGENCY ROOM VISIT NOTE ---
History Report prepared by Darleen: Jie Mitchell Under the Supervision of: Dr. Bebo Lyles M.D. 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 As per EMS, the patient fell at home and thinks he hit his head on the side of the TV. EMS reports he was stating he has right sided hip pain however, he has chronic right sided pain as he broke one side of his pelvis in August and the other in October. He rated his pain as a 5/10 in severity at home however his pain was resolved while in the ambulance. He is accompanied by his who reports that her stood up out of his chair and fell and hit his head on the side of a wooden TV stand. She reports that her was complaining of right sided hip pain but denied any headache. His also notes that her was very confused yesterday and she believes this may have caused his fall. HPI and ROS limited secondary to the patient's dementia. 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 HPI and ROS limited secondary to the patient's dementia. Past Medical & Surgical Medical Problems: (1) Alzheimer's dementia (2) DM type 2 (diabetes mellitus, type 2) (3) Fall (4) Fracture of femoral neck, right, closed (5) Gout (6) history of bowel resection (7) History of colon cancer (8) HTN (hypertension) (9) Kidney stones (10) Recurrent falls Surgical Problems: (1) History of appendectomy (2) Hx of cornea transplant Social History Problems: (1) Diabetes Family History Diabetes mellitus Hypertension Social History Smoking Status: Former Smoker Drug Use: none Marital Status: Housing Status: lives with family Occupation Status: retired Current/Historical Medications Scheduled Allopurinol (Zyloprim), 150 MG PO DAILY Ascorbic Acid (Ascorbic Acid), 500 MG PO DAILY Atorvastatin (Lipitor), 20 MG PO DAILY Empagliflozin (Jardiance), 10 MG PO DAILY Losartan Potassium (Cozaar), 25 MG PO DAILY Metformin Hcl (Glucophage), 1,000 MG PO BIDM Trazodone HCl (Trazodone HCl), 50 MG PO HS Scheduled PRN Acetaminophen (Tylenol), 650 MG PO Q8 PRN for Pain or Fever Insulin Human Isophan/Regular (Novolin 70/30), 20 UNITS SC UD PRN for hyperglycemia Lorazepam (Ativan), 0.5 MG PO DAILY PRN for Agitation Allergies Coded Allergies: Tetracycline (Verified Adverse Reaction, Unknown, SEVERE CONSTIPATION, ) Uncoded Allergies: ADHESIVE TAPE (Allergy, Intermediate, ERRYTHEMA, 09/25/13) Physical Exam Vital Signs Date Time Temp Pulse Resp B/P (MAP) Pulse Ox O2 Delivery O2 Flow Rate FiO2 12/02/17 17:06 73 18 178/78 96 Room Air 12/02/17 15:37 70 18 151/83 95 Room Air 12/02/17 14:45 64 18 124/58 98 Room Air 12/02/17 13:25 71 12/02/17 13:25 70 16 126/78 98 Room Air 12/02/17 12:51 97 Room Air 12/02/17 12:39 36.8 80 18 125/79 95 Room Air Physical Exam GENERAL: Awake, alert, well-appearing, in no distress, oriented to person HENT: Normocephalic, atraumatic. Oropharynx unremarkable. EYES: Normal conjunctiva. Sclera non-icteric. NECK: Supple. No nuchal rigidity. RESPIRATORY: Clear to auscultation. No wheezes. Normal respiratory effort. CARDIAC: Normal rate. Normal rhythm. Extremities warm and well perfused. GI: Soft, non-distended. No tenderness to palpation. No rebound or guarding. No masses. RECTAL: Deferred. MUSCULOSKELETAL: Atraumatic. Chest examination reveals no tenderness. There is no CVA tenderness to palpation. LOWER EXTREMITIES: Calves are equal size bilaterally and non-tender. No edema. Very minimal tenderness of the right hip and knee NEURO: Normal sensorium. No sensory or motor deficits noted. No facial droop. SKIN: Warm and dry. No rash or jaundice noted. Medical Decision & Procedures ER Provider Diagnostic Interpretation: Radiology results as stated below per my review and radiologist interpretation: R KNEE 3 VIEWS CLINICAL HISTORY: 77 years-old Male presenting with fall, some pain. TECHNIQUE: Frontal, lateral, and sunrise views of the right knee were obtained. COMPARISON: None. FINDINGS: Knee joint congruent. Osteopenia suspected. Trace osteophytosis at the patellofemoral compartment. No acute fracture or malalignment. No advanced degenerative change. Atherosclerosis. IMPRESSION: No acute osseous injury. Electronically signed by: Adam Quintero M.D. 12/02/2017 2:14 PM HEAD WITHOUT CONTRAST (CT) CT DOSE: 906.61 mGy.cm HISTORY: Mental status change EVALUATE WEAKNESS TECHNIQUE: Multiaxial CT images of the head were performed without the use of intravenous contrast. A dose lowering technique was utilized adhering to the principles of ALARA. Comparison: 08/22/2017 Findings: The paranasal sinuses and mastoid air cells are clear. The calvarium and skull base are intact. The ventricles and sulci are within normal limits. There is no mass, hematoma, midline shift, or acute infarct. Impression: No acute intracranial abnormality. Age-related atrophy and chronic small vessel change The above report was generated using voice recognition software. It may contain grammatical, syntax or spelling errors. Electronically signed by: Trav Adame M.D. 12/02/2017 1:14 PM CERVICAL SPINE W/O CT DOSE: HISTORY: Trauma. Mental status change. fall TECHNIQUE: Multiaxial CT images of the cervical spine were performed and reformatted in the sagittal and coronal plane without the use of contrast. A dose lowering technique was utilized adhering to the principles of ALARA. COMPARISON: None. FINDINGS: No fractures. No subluxation. Prevertebral soft tissues and the C1-C2 interval are intact. No pneumothorax. IMPRESSION: No fractures within the cervical spine. Considerable degenerative change. The above report was generated using voice recognition software. It may contain grammatical, syntax or spelling errors. Electronically signed by: Trav Adame M.D. 12/02/2017 1:17 PM CHEST 1 VW FRONT-NOT PORTABLE CLINICAL HISTORY: 77 years-old Male presenting with FALL, LT HIP PAIN. TECHNIQUE: Portable upright AP view of the chest was obtained. COMPARISON: 08/22/2017. FINDINGS: Cardiomediastinal silhouette normal. No focal opacity. No large effusion or pneumothorax. Degenerative changes of the left glenohumeral joint. Upper abdomen normal. IMPRESSION: 1. No acute cardiopulmonary disease. Electronically signed by: Adam Quintero M.D. 12/02/2017 2:12 PM R PELVIS/UNILATERAL HIP 2-3VIEWS CLINICAL HISTORY: RT HIP PAIN pain COMPARISON: None. DISCUSSION: Findings suspect for a subcapital fracture right hip. No evidence of dislocation. No evidence for acetabular protrusion. There is no evidence for soft tissue swelling. IMPRESSION: Probable subcapital fracture right hip versus degenerative change. CT of the right hip would be helpful as follow-up. The above report was generated using voice recognition software. It may contain grammatical, syntax or spelling errors. Electronically signed by: Trav Adame M.D. 12/02/2017 2:[address] DOSE: 368.91 mGy.cm HISTORY: Right hip pain. fall, pain, ?frx TECHNIQUE: Multiaxial CT images of the right hip were performed and reformatted in the sagittal and coronal plane without the use of contrast. A dose lowering technique was utilized adhering to the principles of ALARA. COMPARISON: Right hip 12/02/2017. FINDINGS: There is acute impacted right subcapital femoral neck fracture. No dislocation. Healing left inferior pubic ramus fracture. Old, healed right inferior pubic ramus fracture. IMPRESSION: 1. Acute impacted right subcapital femoral neck fracture. 2. Healing left inferior pubic ramus fracture. Electronically signed by: Christian Brandon M.D. 12/02/2017 2:45 PM Laboratory Results 12/02/17 12:49 Red Blood Count 4.67, Mean Corpuscular Volume 85.4, Mean Corpuscular Hemoglobin 31.5, Mean Corpuscular Hemoglobin Concent 36.8, Mean Platelet Volume 10.4, Neutrophils (%) (Auto) 74.2, Lymphocytes (%) (Auto) 15.9, Monocytes (%) (Auto) 9.2, Eosinophils (%) (Auto) 0.2, Basophils (%) (Auto) 0.1, Neutrophils # (Auto) 9.94, Lymphocytes # (Auto) 2.14, Monocytes # (Auto) 1.24, Eosinophils # (Auto) 0.03, Basophils # (Auto) 0.02 12/02/17 12:49 Test 12/02/17 12:30 12/02/17 12:49 Urine Color YELLOW Urine Appearance CLEAR (CLEAR) Urine pH 5.0 (4.5-7.5) Urine Specific Dennis 1.040 (1.000-1.030) Urine Protein NEG (NEG) Urine Glucose (UA) 3+ (NEG) Urine Ketones 1+ (NEG) Urine Occult Blood NEG (NEG) Urine Nitrite NEG (NEG) Urine Bilirubin NEG (NEG) Urine Urobilinogen NEG (NEG) Urine Leukocyte Esterase NEG (NEG) White Blood Count 13.43 K/uL (4.8-10.8) Red Blood Count 4.67 M/uL (4.7-6.1) Hemoglobin 14.7 g/dL (14.0-18.0) Hematocrit 39.9 % (42-52) Mean Corpuscular Volume 85.4 fL (80-100) Mean Corpuscular Hemoglobin 31.5 pg (25-34) Mean Corpuscular Hemoglobin Concent 36.8 g/dl (32-36) Platelet Count 217 K/uL (130-400) Mean Platelet Volume 10.4 fL (7.4-10.4) Neutrophils (%) (Auto) 74.2 % Lymphocytes (%) (Auto) 15.9 % Monocytes (%) (Auto) 9.2 % Eosinophils (%) (Auto) 0.2 % Basophils (%) (Auto) 0.1 % Neutrophils # (Auto) 9.94 K/uL (1.4-6.5) Lymphocytes # (Auto) 2.14 K/uL (1.2-3.4) Monocytes # (Auto) 1.24 K/uL (0.11-0.59) Eosinophils # (Auto) 0.03 K/uL (0-0.5) Basophils # (Auto) 0.02 K/uL (0-0.2) RDW Standard Deviation 39.8 fL (36.4-46.3) RDW Coefficient of Variation 13.0 % (11.5-14.5) Immature Granulocyte % (Auto) 0.4 % Immature Granulocyte # (Auto) 0.06 K/uL (0.00-0.02) Prothrombin Time 10.6 SECONDS (9.0-12.0) Prothromb Time International Ratio 1.0 (0.9-1.1) Activated Partial Thromboplast Time 24.1 SECONDS (21.0-31.0) Partial Thromboplastin Ratio 0.9 Anion Gap 9.0 mmol/L (3-11) Est Creatinine Clear Calc Drug Dose 77.2 ml/min Estimated GFR () 96.0 Estimated GFR (Non- 82.9 BUN/Creatinine Ratio 12.3 (10-20) Calcium Level 9.8 mg/dl (8.5-10.1) Magnesium Level 2.2 mg/dl (1.8-2.4) Total Bilirubin 0.7 mg/dl (0.2-1) Direct Bilirubin 0.2 mg/dl (0-0.2) Aspartate Amino Transf (AST/SGOT) 37 U/L (15-37) Alanine Aminotransferase (ALT/SGPT) 38 U/L (12-78) Alkaline Phosphatase 140 U/L (45-117) Troponin I < 0.015 ng/ml (0-0.045) Total Protein 7.8 gm/dl (6.4-8.2) Albumin 3.7 gm/dl (3.4-5.0) Lipase 36 U/L (73-393) Thyroid Stimulating Hormone (TSH) 1.530 uIu/ml (0.300-4.500) Laboratory results reviewed by me Medications Administered Medications (Trade) Dose Ordered Sig/Aniyah Route Start Time Stop Time Status Last Admin Dose Admin Fentanyl Citrate (Fentanyl Inj) 25 mcg NOW ONCE IV 12/02/17 15:30 12/02/17 15:31 DC 12/02/17 15:30 25 MCG Acetaminophen (Tylenol Tab) 1,000 mg NOW STAT PO 12/02/17 15:28 12/02/17 15:29 DC 12/02/17 15:28 1,000 MG ECG Per My Interpretation Indication: other (fall) Rate (beats per minute): 76 Rhythm: normal sinus Findings: no ectopy, other (no ST segment elevation) Comparison ECG Date: 08/22/17 Change: Compared to prior, no longer lead III TWI ED Course 1227: The patient was evaluated in room A11. A complete history and physical exam was performed. 1426: I checked on the patient at this time. He feels a little tired and will drink some water. 1528: Ordered Tylenol Tab 1000 mg PO 1530: Ordered Fentanyl Inj 25 mcg IV 1600: Discussed the patient's case with Dr. Mckinnon, On-Call [facility]. 1605: Discussed the patient's case with SHAHIDA Reid. The patient will be evaluated for further treatment and disposition. Medical Decision Triage Nursing notes reviewed. Differential diagnosis: Etiologies such as fracture, dislocation, intra-abdominal, pneumothorax, intrathoracic , intracranial, neurologic, metabolic, infection, hypoglycemia, electrolyte abnormalities, cardiac sources, intracerebral event, toxicologic, neurologic, as well as others were entertained. Patient presents via EMS after a fall this morning. worked to a large [employer]. He initially complained of some head pain and struck the right hip and hit on the stand. No lacerations appreciated. reports a significant history of dementia but that seems slightly more confused over the past today. Some reports of hallucinations. Patient denies significant pain now. relates that he did initially have some pain in his right leg/knee. X-rays were obtained here along with chest x-ray and CTs of the head and cervical spine. Abdomen is benign. No significant chest wall tenderness. Basic laboratory studies were obtained. CXR unremarkable. Chest x-ray shows a possible right hip fracture and CT of this area was completed for further evaluation of the hip. No evidence of UTI. There is a slight leukocytosis present at 13.4. Otherwise his laboratory studies without significant abnormality. Negative troponin. EKG unremarkable. Was given some ibuprofen prior to arrival here. CT of the head and cervical spine without acute injury. Unsure why the patient has been having some slight increased hallucination recently but could be manifestation of his worsening Alzheimer's disease. Do not see an acute infectious process causing this. Evidence of a right impacted subcapital femoral neck fracture. Orthopedics was consulted for management. Admission to [facility]. Head Trauma GCS Score: 15 Medication Reconcilliation Current Medication List: was personally reviewed by oh Blood Pressure Screening Patient's blood pressure: Normal blood pressure Blood pressure disposition: Did not require urgent referral Consults Time Called: 1520 Consulting Physician: Dr. Mckinnon, [facility] Returned Call: 1600 Discussed the patient's case with Dr. Mckinnon, On[facility]. Additional Consults: Time Called: 1600 Consulted Physician: SHAHIDA Reid Returned Call: 1605 Additional Comments: Discussed the patient's case with SHAHIDA Reid. The patient will be evaluated for further treatment and disposition. Impression Primary Impression: Hip fracture, right Additional Impression: Fall Scribe Attestation The scribe's documentation has been prepared under my direction and personally reviewed by me in its entirety. I confirm that the note above accurately reflects all work, treatment, procedures, and medical decision making performed by me. Departure Information Dispostion Being Evaluated By Hospitalist (SHAHIDA Reid) Referrals Zack Gerardo M.D. (PCP) Problem Qualifiers Primary Impression: Hip fracture, right Encounter type: initial encounter Fracture type: closed Qualified Codes: S72.001A - Fracture of unspecified part of neck of right femur, initial encounter for closed fracture Additional Impression: Fall Encounter type: initial encounter Qualified Codes: W19.XXXA - Unspecified fall, initial encounter
[2017-12-02] MEDS ORDERED: ACETAMINOPHEN IV 1,000 MG in EMPTY BAG 0 ML IV PRN (18:45)
[2017-12-02] MEDS ORDERED: CLONIDINE HCL 0.1 MG TAB PO PRN (18:45)
[2017-12-02] MEDS: MoRPHine SULFATE 2 MG/ML CARP IV PRN (20:05)
[2017-12-02] MEDS: TRAZODONE HCL 50 MG TAB PO SCH (20:35)
[2017-12-02] MEDS: INSULIN GLARGINE SOLOSTAR 100 UNITS/ML 3 ML PEN SC SCH (20:52)
[2017-12-02] MEDS ORDERED: INSULIN ASPART 100 UNITS/ML 3 ML PEN SC SCH (21:00)
[2017-12-02] MEDS ORDERED: DOCUSATE SODIUM/SENNA 50/8.6MG TAB PO SCH (21:00)
--- NOTE | 2017-12-02 21:20 | ORTHOPEDIC CONSULTATION ---
DATE OF CONSULTATION: 12/02/2017 Special attention to right hip fracture. HISTORY OF PRESENT ILLNESS: This is a 77-year-old male who sustained a fall, mechanical in nature. noted hearing a loud thud and came into the living room and found the patient lying on the floor. He struck his right side off of a TV stand. He complains of pain in the right knee initially. He is admitted to the hospital with right impacted subcapital femoral neck fracture. His recent history of multiple falls as well as hospitalization from 08/23/2017-08/26/2017 for mechanical fall and pelvic fracture was treated nonoperatively. Also recurrent hospitalization on 10/28/2017 for a mechanical fall. Currently, he uses a walker for ambulation and has been home for approximately 1 week. PAST MEDICAL HISTORY: Alzheimer's dementia, diabetes type 2, gout, history of bowel resection, colon cancer, hypertension, kidney stones, recurrent falls. PAST SURGICAL HISTORY: Appendectomy, coronary transplants. 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 PHYSICAL EXAMINATION: The patient is lying in the lateral decubitus position. He has no evidence of hip abrasions or hematoma. He has mild pain with log roll of the hip. He can flex and extend the ankle and the knee but exam is limited secondary to discomfort. He has no open injuries. No evidence of hematoma. AP pelvis does show impacted subcapital femoral neck fracture. CAT scan confirms the same, also healing inferior pubic my fracture is seen. ASSESSMENT: A 77-year-old male with right femoral neck fracture, impacted, subcapital. PLAN: Recommendation at this point in time is for cannulated screw fixation. I discussed the case with the hospitalist. He does appear to be surgically cleared. Recommendation is for a surgery in the morning for cannulated screw fixation with physical therapy to follow. Currently, he will be n.p.o. after midnight. 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 We completed informed sign surgical consent. Continue SCDs. LETAD
[2017-12-02 23:00] VITALS: BP 151/73; PULSE 64; TEMP 36.8; O2SAT 95
[2017-12-03] VITALS (12 sets, daily range): BP systolic 104–188; BP diastolic 67–94; PULSE 60–84; TEMP 36.4–37; O2SAT 94–98; BMI 23.2
[2017-12-03] MEDS ORDERED: NURSING VERBAL MED ORDER ONE (00:45)
[2017-12-03] MEDS: MoRPHine SULFATE 2 MG/ML CARP IV PRN (01:27)
[2017-12-03] MEDS ORDERED: CEFAZOLIN IV 2,000 MG in DEXTROSE 5% 50ML 50 ML IV SCH (06:00)
[2017-12-03] MEDS ORDERED: CEFAZOLIN 2000MG IV PUSH 15 ML IV SCH (06:00)
[2017-12-03] MEDS: INSULIN ASPART 100 UNITS/ML 3 ML PEN SC SCH ×4 (06:19→20:51)
[2017-12-03 07:31] LABS: BASO % 0.3 %; BASO ABS # 0.04 K/uL (0-0.2); EOS % 0.8 %; HEMATOCRIT 41.9 % (42-52); IG# 0.04 K/uL (0.00-0.02); LYMPH % 20.2 %; LYMPH ABS # 2.46 K/uL (1.2-3.4); MEAN CELL VOLUME 85.5 fL (80-100); MEAN CORPUSCULAR HEMOGLOBIN 30.6 pg (25-34); MEAN CORPUSCULAR HGB CONC 35.8 g/dl (32-36); MEAN PLATELET VOLUME 10.5 fL (7.4-10.4); MONO ABS # 1.21 K/uL (0.11-0.59); NEUT % 68.4 %; NEUT ABS # 8.31 K/uL (1.4-6.5); PLATELET COUNT 196 K/uL (130-400); RED CELL DISTRIBUTION WIDTH CV 12.9 % (11.5-14.5); WHITE BLOOD COUNT 12.16 K/uL (4.8-10.8)
[2017-12-03 07:55] LABS: CALCIUM 8.9 mg/dl (8.5-10.1); CREATININE 0.68 mg/dl (0.60-1.40)
[2017-12-03] MEDS ORDERED: PROPOFOL IV EMULSION 10 MG/ML 20 ML VIAL ONE (08:45)
[2017-12-03] MEDS ORDERED: ATROPINE SULFATE 0.1 MG/ML 5ML SYR IV PRN (08:45)
[2017-12-03] MEDS ORDERED: EpHEDrine SULFATE INJ 50 MG/ML AMP IV PRN (08:45)
[2017-12-03] MEDS ORDERED: HYDROmorphone INJ 2 MG/ML SYR/VIAL IV PRN (08:45)
[2017-12-03] MEDS ORDERED: PHENYLEPHRINE 100MCG/ML 5ML SYR IV PRN (08:45)
[2017-12-03] MEDS ORDERED: FENTANYL CITRATE INJ 50 MCG/1 ML 2 ML VIAL ONE (08:45)
[2017-12-03] MEDS ORDERED: MIDAZOLAM HCL 1 MG/ML 2ML VIAL ONE (08:45)
[2017-12-03] MEDS ORDERED: ONDANSETRON INJ 2 MG/ML 2 ML VIAL IV PRN ×2 (08:45→11:00)
--- NOTE | 2017-12-03 08:45 | DIAGNOSTIC IMAGING REPORT ---
R FEMUR 2 VIEWS ROUTINE CLINICAL HISTORY: 77 years-old Male presenting with s/p fall, femoral neck fracture. TECHNIQUE: Frontal and lateral views of the right femur were obtained. COMPARISON: 08/22/2017. FINDINGS: Osteopenia suspected. There is evidence of an impacted subcapital right femoral neck fracture. The right femoral head remains congruent in the acetabulum. There is mild exaggerated coxa vara angulation. Visualized portion of the bony pelvis intact. Knee joint grossly intact. IMPRESSION: Impacted subcapital right femoral neck fracture. Electronically signed by: Adam Quintero M.D. 12/03/2017 8:44 AM Dictated Date/Time: 12/03/2017 8:42 AM
--- NOTE | 2017-12-03 08:53 | History & Physical Bridge Note ---
H&P Re-Evaluation Bridge Note: I have examined the patient, reviewed the History & Physical and in the interval since the performance of the History & Physical I have noted the following changes of clinical significance: No changes noted
--- NOTE | 2017-12-03 08:57 | Orthopedic Progress Note ---
Orthopedic Progress Note Date of Service Dec 03, 2017. Subjective Additional Notes: Patient was seen in preoperative holding area accompanied by family. Laying in the position, comfortable, no acute issues. Pain well controlled. Objective No apparent distress, alert and oriented to to self Patient follows commands, +2 dorsalis pedis pulse, neurovascular sensory intact , + EHL/FHL/TA/GS, morbid soft nontender, skin over right hip intact, range of motion and strength testing deferred secondary to hip fracture. Date Time Temp Pulse Resp B/P (MAP) Pulse Ox O2 Delivery O2 Flow Rate FiO2 12/03/17 07:24 37.0 63 16 125/68 (87) 95 Room Air 12/03/17 00:00 Room Air 12/02/17 23:00 36.8 64 16 151/73 (99) 95 Room Air 12/02/17 17:40 96 Room Air 12/02/17 17:06 73 18 178/78 96 Room Air 12/02/17 15:37 70 18 151/83 95 Room Air 12/02/17 14:45 64 18 124/58 98 Room Air 12/02/17 13:25 71 12/02/17 13:25 70 16 126/78 98 Room Air 12/02/17 12:51 97 Room Air 12/02/17 12:39 36.8 80 18 125/79 95 Room Air Laboratory Results 24 Hours: Test 12/02/17 12:49 12/03/17 07:07 White Blood Count 13.43 K/uL 12.16 K/uL Red Blood Count 4.67 M/uL 4.90 M/uL Hemoglobin 14.7 g/dL 15.0 g/dL Hematocrit 39.9 % 41.9 % Mean Corpuscular Volume 85.4 fL 85.5 fL Mean Corpuscular Hemoglobin 31.5 pg 30.6 pg Mean Corpuscular Hemoglobin Concent 36.8 g/dl 35.8 g/dl Platelet Count 217 K/uL 196 K/uL Mean Platelet Volume 10.4 fL 10.5 fL Neutrophils (%) (Auto) 74.2 % 68.4 % Lymphocytes (%) (Auto) 15.9 % 20.2 % Monocytes (%) (Auto) 9.2 % 10.0 % Eosinophils (%) (Auto) 0.2 % 0.8 % Basophils (%) (Auto) 0.1 % 0.3 % Neutrophils # (Auto) 9.94 K/uL 8.31 K/uL Lymphocytes # (Auto) 2.14 K/uL 2.46 K/uL Monocytes # (Auto) 1.24 K/uL 1.21 K/uL Eosinophils # (Auto) 0.03 K/uL 0.10 K/uL Basophils # (Auto) 0.02 K/uL 0.04 K/uL Prothromb Time International Ratio 1.0 Prothrombin Time 10.6 SECONDS Assessment & Plan Assessment: Right valgus impacted femoral neck fracture Plan: I have indicated the patient for right hip percutaneous pinning. I discussed with the patient's family the risks benefits and complications associated with percutaneous pinning. These include infection, acute blood loss, blood clots, injury to surrounding bone, nerves, vessels and soft tissue, malunion, nonunion , failure of the implants, cut out of the femoral head, avascular necrosis of the femoral head, chronic pain, loss of function, need for additional surgery, cardiac and pulmonary events and . The patient's family collectively decided to proceed with surgical intervention, percutaneous hip pinning at this time and informed consent was obtained. -N.p.o. -Ancef on-call to OR -Hold anticoagulation -Nonweightbearing right lower extremity/bedrest -Pain controlled
[2017-12-03] MEDS ORDERED: BUPIVACAINE 0.25% 30 ML VIAL ONE (09:10)
[2017-12-03] MEDS ORDERED: LIDOCAINE HCL 2% 2 ML VIAL (20MG/ML) ONE (10:04)
[2017-12-03] MEDS ORDERED: PHENYLEPHRINE HCL INJ 10 MG/ML VIAL ONE (10:04)
--- NOTE | 2017-12-03 10:29 | [facility] Post Operative Brief Note ---
Immediate Operative Summary Operative Date Dec 03, 2017. Pre-Operative Diagnosis Right Valgus Impacted Femoral Neck Fracture Post-Operative Diagnosis Same Procedure(s) Performed Right Hip, Screw Fixation Surgeon Dr. Anthony Short Sighter Surgeon(s) None Estimated Blood Loss 15ml Findings Consistent with Post-Op Diagnosis Fluids (cc crystalloids) 2000 Specimens None Anesthesia Type MAC Spinal Regional Complication(s) none Disposition Disposition: Recovery Room / PACU Overlapping Procedure I was present for: the critical portions of procedure. I was immediately available: during the entire case Back up surgeon: was not required during procedure
--- NOTE | 2017-12-03 10:43 | DIAGNOSTIC IMAGING REPORT ---
R HIP OR FILMS CLINICAL HISTORY: 77 years-old Male presenting with RT HIP. TECHNIQUE: 2 fluoroscopic image(s) recorded as part of an intraoperative procedure. COMPARISON: 12/03/2017 at 7:54 AM. FINDINGS/IMPRESSION: There has been 3 cannula screw fixation across the subcapital right femoral neck fracture. No malalignment. The femoral head remains congruent. No hardware complication is apparent. Please see surgical report for further details. Fluoroscopy dosage (mGy): 15.10. Fluoroscopy time: 87.7 seconds. Number or time of fluoroscopic spot images: 0. Electronically signed by: Adam Quintero M.D. 12/03/2017 10:41 AM Dictated Date/Time: 12/03/2017 10:40 AM
--- NOTE | 2017-12-03 10:50 | Anesthesiology Progress Note ---
Anesthesia Post Op Note Date & Time Dec 03, 2017 at 10:50 Vital Signs Pain Intensity: 5.0 Vital Signs Past 12 Hours Date Time Temp Pulse Resp B/P (MAP) Pulse Ox O2 Delivery O2 Flow Rate FiO2 12/03/17 07:24 37.0 63 16 125/68 (87) 95 Room Air 12/03/17 00:00 Room Air 12/02/17 23:00 36.8 64 16 151/73 (99) 95 Room Air Notes Mental Status: alert / awake / arousable, participated in evaluation Pt Amnestic to Procedure: Yes Nausea / Vomiting: adequately controlled Pain: adequately controlled Airway Patency, RR, SpO2: stable & adequate BP & HR: stable & adequate Hydration State: stable & adequate Anesthetic Complications: no major complications apparent
[2017-12-03] MEDS ORDERED: ACETAMINOPHEN 325 MG TAB PO PRN (11:00)
[2017-12-03] MEDS ORDERED: CEFAZOLIN IV 1,000 MG in DEXTROSE 5% 50ML 50 ML IV SCH (11:00)
--- NOTE | 2017-12-03 11:05 | [facility] Operative Report ---
Operative Report Operative Date Dec 03, 2017. Pre-Operative Diagnosis Right Valgus Impacted Femoral Neck Fracture Post-Operative Diagnosis Same Procedure(s) Performed Right Hip, Screw Fixation Surgeon Dr. Anthony Short Automobile Mechanic Assistant Surgeon(s) None Estimated Blood Loss 15ml Findings See dictated op note Fluids 2000 Specimens None Drains None Anesthesia Type MAC Spinal Regional Complication(s) none Disposition Recovery Room / PACU Indications The patient is a 77-year-old male with valgus impacted right femoral neck fracture sustained after a fall from standing height. The patient was medically stabilized on 12/03/2017. I indicated the patient for right hip percutaneous pinning. The patient and family were informed of the risks and benefits of surgery, which include but not limited to infection, bleeding, blood clots, damage to nerves, vessels, bone and soft tissue, dislocation, leg length discrepancy, nonunion, malunion, cut out of the screws, avascular necrosis of femoral head, failure of the implant, need for additional surgery and . The patient's family collectively chose to move forward with surgical intervention and informed consent was obtained. Description of Procedure The patient was identified, brought to the operating room, and placed in supine position on the table. After induction of general anesthesia, the patient was positioned on a fracture table. Imaging was obtained utilizing C-arm fluoroscopy of the right hip to assess hip position and version. No reduction was needed. The right hip was then sterilely prepped and draped in the usual fashion for the surgery. A timeout was performed with site kiara confirmation and preoperative antibiotics given. Once again under C-arm fluoroscopy a guide pin was inserted percutaneously and positioned in the inferior neck and femoral head while assessed in both the AP and lateral planes. When satisfactory position was confirmed a small direct lateral incision of the right hip around the guide pin was made. Dissection was carried down to the femur through the IT band and the vastus lateralis was elevated off the bone. Adequate hemostasis was achieved with electrocautery. Next under direct visualization with C-arm fluoroscopy we then used the pin guide to place two additional pins in the anterior superior and posterior superior positions. Position was confirmed both with C-arm fluroscopy in the AP and lateral postion. Each guide pin was measured for appropriate screw length and overdrilled using the cannulated drill bit while utilizing C-arm fluoroscopy to confirm no pin migration had occurred. Three 7.3 16 thread cannulated screws measure 100, 90 and 90 mm were then placed under C-arm fluoroscopy into the femoral head with excellent fixation. The guide pins were removed at this time and final images were obtained utilizing C-arm fluoroscopy. Once this was done and the fixation was solid, the wound was irrigated with copious amounts of sterile saline solution. We then closed in layers using 1 Vicryl, 2-0 Vicryl, and genny for the skin. Sterile xeroform, 4x4, tegaderm dressing was applied. The patient was extubated in the OR , tolerated the procedure well and was taken to the PACU in stable condition. I attest to the content of the Intraoperative Record and any orders documented therein. Any exceptions are noted below.
--- NOTE | 2017-12-03 11:26 | DIAGNOSTIC IMAGING REPORT ---
R HIP UNILATERAL 2 VIEWS CLINICAL HISTORY: 77 years-old Male presenting with s/p Right hip perc pinning. TECHNIQUE: Frontal and crosstable lateral views of the right hip were obtained. COMPARISON: Plain radiographs from earlier today. FINDINGS: There has been 3 cannula screw fixation of the right femoral neck and femoral head for the subcapital fracture. No malalignment. The right femoral head is congruent within the acetabulum. Osteopenia suspected. Visualized portion of the bony pelvis intact. Degenerative changes of the lower lumbar spine. Expected soft tissue emphysema and overlying surgical skin genny. A Trejo catheter is noted. Surgical clips project over the right pelvis. IMPRESSION: Expected postoperative appearance status post 3 cannula screw fixation for the subcapital right femoral neck fracture. Electronically signed by: Adam Quintero M.D. 12/03/2017 11:25 AM Dictated Date/Time: 12/03/2017 11:23 AM
--- NOTE | 2017-12-03 11:54 | Orthopedic Progress Note ---
Orthopedic Progress Note Date of Service Dec 03, 2017. Subjective Additional Notes: Post operative progress note Patient seen in recovery, comfortable, awake and alert, denies pain, still feelings effects of spinal anesthesia Objective NAD PE limited secondary to spinal black, RLE +2 DP pulse, compartments soft NT, dressing cdi Date Time Temp Pulse Resp B/P (MAP) Pulse Ox O2 Delivery O2 Flow Rate FiO2 12/03/17 11:40 72 12 102/70 95 Nasal Cannula 2 12/03/17 11:30 75 16 101/71 99 Nasal Cannula 2 12/03/17 11:20 36.6 72 12 108/73 98 Nasal Cannula 2 12/03/17 11:10 77 12 94/65 98 Nasal Cannula 2 12/03/17 11:00 69 12 94/67 99 Nasal Cannula 2 12/03/17 10:50 72 12 106/70 99 Oxymask 10 12/03/17 10:40 65 12 119/68 100 Oxymask 10 12/03/17 10:33 36.6 47 16 143/79 99 Oxymask 10 12/03/17 07:24 37.0 63 16 125/68 (87) 95 Room Air 12/03/17 00:00 Room Air 12/02/17 23:00 36.8 64 16 151/73 (99) 95 Room Air 12/02/17 17:40 96 Room Air 12/02/17 17:06 73 18 178/78 96 Room Air 12/02/17 15:37 70 18 151/83 95 Room Air 12/02/17 14:45 64 18 124/58 98 Room Air 12/02/17 13:25 71 12/02/17 13:25 70 16 126/78 98 Room Air 12/02/17 12:51 97 Room Air 12/02/17 12:39 36.8 80 18 125/79 95 Room Air Laboratory Results 24 Hours: Test 12/02/17 12:49 12/03/17 07:07 White Blood Count 13.43 K/uL 12.16 K/uL Red Blood Count 4.67 M/uL 4.90 M/uL Hemoglobin 14.7 g/dL 15.0 g/dL Hematocrit 39.9 % 41.9 % Mean Corpuscular Volume 85.4 fL 85.5 fL Mean Corpuscular Hemoglobin 31.5 pg 30.6 pg Mean Corpuscular Hemoglobin Concent 36.8 g/dl 35.8 g/dl Platelet Count 217 K/uL 196 K/uL Mean Platelet Volume 10.4 fL 10.5 fL Neutrophils (%) (Auto) 74.2 % 68.4 % Lymphocytes (%) (Auto) 15.9 % 20.2 % Monocytes (%) (Auto) 9.2 % 10.0 % Eosinophils (%) (Auto) 0.2 % 0.8 % Basophils (%) (Auto) 0.1 % 0.3 % Neutrophils # (Auto) 9.94 K/uL 8.31 K/uL Lymphocytes # (Auto) 2.14 K/uL 2.46 K/uL Monocytes # (Auto) 1.24 K/uL 1.21 K/uL Eosinophils # (Auto) 0.03 K/uL 0.10 K/uL Basophils # (Auto) 0.02 K/uL 0.04 K/uL Prothromb Time International Ratio 1.0 Prothrombin Time 10.6 SECONDS Assessment & Plan Assessment: s/p Right hip percutaneous pinning Plan: -ancef x 24 -Lovenox x 24 for 4 weeks -Strict NWB RLE -PT/OT -pain controlled -PO XR demonstrates anatomic fracture site with well aligned well fixed hip screws, no fracture/dislocation. -am labs
[2017-12-03] MEDS: ALLOPURINOL 100 MG TAB PO SCH (13:23)
[2017-12-03] MEDS: ATORVASTATIN 20 MG TAB PO SCH (13:24)
[2017-12-03] MEDS: SODIUM CHLORIDE 0.9% 1000ML 1,000 ML IV SCH (13:25)
[2017-12-03] MEDS: INSULIN GLARGINE SOLOSTAR 100 UNITS/ML 3 ML PEN SC SCH ×2 (13:27→20:52)
--- NOTE | 2017-12-03 14:53 | Progress Note ---
Medicine Progress Note Date & Time of Visit: Dec 03, 2017 at 14:27. Subjective Pt was seen and examined Sitting in bed with no distress eating lunch Pt just came back from hip surgery He denies any pain since he received an epidural for the procedure Denies any chest pain, palpitation, dizziness and SOB Objective Last 8 Hrs Date Time Temp Pulse Resp B/P (MAP) Pulse Ox O2 Delivery O2 Flow Rate FiO2 12/03/17 13:15 98 Nasal Cannula 2.0 12/03/17 13:15 98 Nasal Cannula 12/03/17 12:45 36.4 83 18 131/82 (98) 98 Nasal Cannula 2.0 12/03/17 12:15 36.6 76 18 104/67 (79) 98 Nasal Cannula 2.0 12/03/17 12:00 36.9 73 14 113/69 98 Nasal Cannula 2 12/03/17 11:50 71 15 105/70 100 Nasal Cannula 2 12/03/17 11:40 72 12 102/70 95 Nasal Cannula 2 12/03/17 11:30 75 16 101/71 99 Nasal Cannula 2 12/03/17 11:20 36.6 72 12 108/73 98 Nasal Cannula 2 12/03/17 11:10 77 12 94/65 98 Nasal Cannula 2 12/03/17 11:00 69 12 94/67 99 Nasal Cannula 2 12/03/17 10:50 72 12 106/70 99 Oxymask 10 12/03/17 10:40 65 12 119/68 100 Oxymask 10 12/03/17 10:33 36.6 47 16 143/79 99 Oxymask 10 12/03/17 08:00 95 Room Air 12/03/17 07:24 37.0 63 16 125/68 (87) 95 Room Air Physical Exam: General- No acute distress Head- atraumatic Eyes- PERRL, EOMI ENT- oropharynx clear Neck- no JVD Lungs- No wheezing Heart- regular rhythm Abdomen- normal bowel sounds, soft Extremities- n no calf tenderness Neuro- alert, oriented, PERRL, EOMI, Skin- warm & dry Laboratory Results: Last 24 Hours Test 12/02/17 18:13 12/02/17 20:39 12/03/17 00:15 12/03/17 05:41 Bedside Glucose 156 mg/dl 216 mg/dl 160 mg/dl 176 mg/dl Test 12/03/17 07:07 12/03/17 10:46 12/03/17 12:30 White Blood Count 12.16 K/uL Red Blood Count 4.90 M/uL Hemoglobin 15.0 g/dL Hematocrit 41.9 % Mean Corpuscular Volume 85.5 fL Mean Corpuscular Hemoglobin 30.6 pg Mean Corpuscular Hemoglobin Concent 35.8 g/dl Platelet Count 196 K/uL Mean Platelet Volume 10.5 fL Neutrophils (%) (Auto) 68.4 % Lymphocytes (%) (Auto) 20.2 % Monocytes (%) (Auto) 10.0 % Eosinophils (%) (Auto) 0.8 % Basophils (%) (Auto) 0.3 % Neutrophils # (Auto) 8.31 K/uL Lymphocytes # (Auto) 2.46 K/uL Monocytes # (Auto) 1.21 K/uL Eosinophils # (Auto) 0.10 K/uL Basophils # (Auto) 0.04 K/uL RDW Standard Deviation 40.0 fL RDW Coefficient of Variation 12.9 % Immature Granulocyte % (Auto) 0.3 % Immature Granulocyte # (Auto) 0.04 K/uL Sodium Level 136 mmol/L Potassium Level 4.0 mmol/L Chloride Level 104 mmol/L Carbon Dioxide Level 23 mmol/L Anion Gap 10.0 mmol/L Blood Urea Nitrogen 14 mg/dl Creatinine 0.68 mg/dl Est Creatinine Clear Calc Drug Dose 99.9 ml/min Estimated GFR () 106.8 Estimated GFR (Non- 92.1 BUN/Creatinine Ratio 20.4 Random Glucose 168 mg/dl Calcium Level 8.9 mg/dl Bedside Glucose 156 mg/dl 130 mg/dl Date/Time Source Procedure Growth Status 12/02/17 20:15 Nasal MRSA DNA Surveillance Screen - Final Specimen Negative for MRSA by DNA Probe Complete Assessment & Plan Pt is 77 y/o M with PMH HTN, DM II, Alzheimer dementia, gout presented to ER with complaint of fall today. RIGHT FEMORAL NECK FRACTURE S/P Mechanical FALL CT right hip on admission showed acute impacted right subcapital femoral neck fracture. S/P Right Hip, Screw Fixation done today by Dr. Short Will try to avoid narcotic due to confusion Will do pain management with IV acetaminophen alternating to toradol incentive spirometry Non weight bearing in Right lower extremity PT/OT Monitor H/H Fall precaution Will need placement to rehab Not safe to discharge home after rehab since that has been in the hospital for his 3rd admission due to fall DM II Hold oral DM meds Continue insulin sliding scale Monitor BS HTN Will resume losartan in am Continue monitor BP HX ALZHEIMER DEMENTIA At baseline stable Insomnia Did not sleep last night On Trazodone 50mg HS that was decreased to 25mg HS Will consider to increase it back to his home dose Monitor closely for drowsiness GOUT Continue allopurinol HLD Continue atorvastatin DVT Prophylaxis SCD Starting on lovenox in am Disposition: Will need placement to rehab Pt's : Cristina [phone] Pts daughter: Ewa: [phone] Current Inpatient Medications: Current Inpatient Medications Medications (Trade) Dose Ordered Sig/Aniyah Route Start Time Stop Time Status Last Admin Dose Admin Allopurinol (Zyloprim Tab) 150 mg DAILY PO 12/03/17 09:00 01/02/18 08:59 12/03/17 13:23 150 MG Atorvastatin Calcium (Lipitor Tab) 20 mg DAILY PO 12/03/17 09:00 01/02/18 08:59 12/03/17 13:24 20 MG Insulin Glargine (Lantus Solostar Pen) 13 units if BSG >14... Q12 SC 12/02/17 21:00 01/01/18 20:59 12/03/17 13:27 7 UNITS Glucose (Glucose 40% Gel) 15-30 GRAMS 15 GRAMS... UD PRN PO 12/02/17 17:45 01/01/18 17:44 Glucose (Glucose Chew Tab) 4-8 Tablets 4 Tabl... UD PRN PO 12/02/17 17:45 01/01/18 17:44 Dextrose (Dextrose 50% 50ML Syringe) 25-50ML 25ML FOR ... UD PRN IV 12/02/17 17:45 01/01/18 17:44 Glucagon (Glucagon Inj) 1 mg UD PRN SQ 12/02/17 17:45 01/01/18 17:44 Carbohydrates (Carbohydrates For Hypoglycemia) 15-30 GRAMS 15 grams if BSG 54-69... UD PRN PO 12/02/17 17:45 01/01/18 17:44 Trazodone HCl (Desyrel Tab) 25 mg HS PO 12/02/17 21:00 01/01/18 20:59 12/02/17 20:35 25 MG Naloxone HCl (Narcan Inj) 0.1 mg PRN PRN IV 12/02/17 17:45 01/01/18 17:44 Polyethylene (Miralax Powder Packet) 17 gm DAILY PRN PO 12/02/17 17:45 01/01/18 17:44 Magnesium Hydroxide (Milk Of Magnesia Susp) 30 ml DAILY PRN PO 12/02/17 17:45 01/01/18 17:44 Bisacodyl (Dulcolax Supp) 10 mg DAILY PRN ND 12/02/17 17:45 01/01/18 17:44 Sodium Biphosphate/ Sodium Phosphate (Fleet Enema) 132 ml PRN PRN ND 12/02/17 17:45 Cefazolin Sodium 15 ml @ 3.75 mls/ min PREOP IV 12/03/17 06:00 12/03/17 18:00 Morphine Sulfate (MoRPHine SULFATE INJ) 1 mg Q4 PRN IV 12/02/17 18:45 12/16/17 17:29 12/03/17 01:27 1 MG Clonidine HCl (Catapres Tab) 0.1 mg Q6 PRN PO 12/02/17 18:45 01/01/18 18:44 Acetaminophen 1000 mg/Empty Bag 100 ml @ 400 mls/hr Q8H PRN IV 12/02/17 18:45 01/01/18 18:44 12/03/17 05:32 400 MLS/HR Insulin Aspart (novoLOG ASPART) SLIDING SCALE If C... Q6 SC 12/03/17 06:00 01/02/18 05:59 12/03/17 13:32 3 UNITS Enoxaparin Sodium (Lovenox Inj) 40 mg Q24H SQ 12/04/17 10:00 01/03/18 09:59 Sodium Chloride 1,000 ml @ 85 mls/hr [id number] IV 12/03/17 12:00 01/02/18 11:59 12/03/17 13:25 85 MLS/HR Ondansetron HCl (Zofran Inj) 4 mg Q6H PRN IV 12/03/17 11:00 01/02/18 10:59 Acetaminophen (Tylenol Tab) 650 mg Q6H PRN PO 12/03/17 11:00 01/02/18 10:59 Senna/Docusate Sodium (Senokot S Tab) 2 tab HS PO 12/03/17 21:00 01/02/18 20:59 Cefazolin Sodium 1000 mg/Syringe 7.5 ml @ 2.5 mls/min Q8H IV 12/03/17 16:00 12/04/17 00:02 Tramadol HCl (Ultram Tab) 1 TABLET FOR PAIN RATING... Q4H PRN PO 12/03/17 12:00 01/02/18 11:59
[2017-12-03] MEDS: CEFAZOLIN IV 1,000 MG in SYRINGE 0 ML IV SCH ×2 (16:35→23:34)
[2017-12-03] MEDS: TRAMADOL HCL 50 MG TAB PO PRN (18:23)
[2017-12-03] MEDS: DOCUSATE SODIUM/SENNA 50/8.6MG TAB PO SCH (20:46)
[2017-12-03] MEDS: TRAZODONE HCL 50 MG TAB PO SCH (20:46)
[2017-12-04] VITALS (7 sets, daily range): BP systolic 118–155; BP diastolic 76–85; PULSE 63–93; TEMP 36.8–37.3; O2SAT 94–96
[2017-12-04] MEDS: SODIUM CHLORIDE 0.9% 1000ML 1,000 ML IV SCH (00:41)
[2017-12-04 06:24] LABS: HEMATOCRIT 38.2 % (42-52); HEMOGLOBIN 13.3 g/dL (14.0-18.0); MEAN CELL VOLUME 86.8 fL (80-100); MEAN CORPUSCULAR HEMOGLOBIN 30.2 pg (25-34); MEAN CORPUSCULAR HGB CONC 34.8 g/dl (32-36); MEAN PLATELET VOLUME 10.4 fL (7.4-10.4); PLATELET COUNT 193 K/uL (130-400); RED CELL DISTRIBUTION WIDTH SD 41.4 fL (36.4-46.3); WHITE BLOOD COUNT 10.23 K/uL (4.8-10.8)
[2017-12-04] MEDS: TRAMADOL HCL 50 MG TAB PO PRN ×3 (06:25→21:45)
[2017-12-04 07:05] LABS: CALCIUM 8.9 mg/dl (8.5-10.1); CREATININE 0.68 mg/dl (0.60-1.40); POTASSIUM 3.8 mmol/L (3.5-5.1)
[2017-12-04] MEDS: ALLOPURINOL 100 MG TAB PO SCH (09:03)
[2017-12-04] MEDS: ATORVASTATIN 20 MG TAB PO SCH (09:04)
[2017-12-04] MEDS: ENOXAPARIN 40 MG/0.4 ML SYR SQ SCH (09:05)
[2017-12-04] MEDS ORDERED: LOSARTAN POTASSIUM 25 MG TAB PO ONE (09:13)
[2017-12-04] MEDS: INSULIN ASPART 100 UNITS/ML 3 ML PEN SC SCH ×4 (09:20→21:58)
[2017-12-04] MEDS: INSULIN GLARGINE SOLOSTAR 100 UNITS/ML 3 ML PEN SC SCH ×2 (09:21→22:00)
--- NOTE | 2017-12-04 10:18 | PROGRESS NOTE ---
DATE: 12/04/2017 SUBJECTIVE: Theodore verbalizes no new complaints. He denies any significant pain in the hip. OBJECTIVE: On right hip exam, dressing is clean, dry, and intact. He can flex and extend the toes, but exam is limited secondary to cooperation. Thigh is soft. IMAGING: Radiographs show excellent position of screws, status post femoral neck pinning. ASSESSMENT: Postop day #1 right femoral neck pinning by Dr. Short. PLAN: Overall, he is doing well. We will continue nonweightbearing on the right hip. Will continue Lovenox and SCDs. We will continue to follow.
--- NOTE | 2017-12-04 17:56 | Progress Note ---
Medicine Progress Note Date & Time of Visit: Dec 04, 2017 at 17:52. Subjective Pt was seen and examined Lying in bed with no distress with 1 to 1 sitter Complaint of mild to moderate pain No agitation Denies any chest pain, palpitation, dizziness and SOB Objective Last 8 Hrs Date Time Temp Pulse Resp B/P (MAP) Pulse Ox O2 Delivery O2 Flow Rate FiO2 12/04/17 15:45 Room Air 12/04/17 14:56 37.1 93 16 125/76 (92) 95 12/04/17 11:24 Room Air 12/04/17 10:47 37.0 80 16 133/84 (100) 95 Room Air Physical Exam: General- No acute distress Head- atraumatic Eyes- PERRL, EOMI ENT- oropharynx clear Neck- no JVD Lungs- No wheezing Heart- regular rhythm Abdomen- normal bowel sounds, soft Extremities- n no calf tenderness Neuro- alert, oriented, PERRL, EOMI, Skin- warm & dry Laboratory Results: Last 24 Hours Test 12/03/17 20:21 12/04/17 06:03 12/04/17 08:19 12/04/17 12:03 Bedside Glucose 200 mg/dl 185 mg/dl 189 mg/dl White Blood Count 10.23 K/uL Red Blood Count 4.40 M/uL Hemoglobin 13.3 g/dL Hematocrit 38.2 % Mean Corpuscular Volume 86.8 fL Mean Corpuscular Hemoglobin 30.2 pg Mean Corpuscular Hemoglobin Concent 34.8 g/dl RDW Standard Deviation 41.4 fL RDW Coefficient of Variation 13.0 % Platelet Count 193 K/uL Mean Platelet Volume 10.4 fL Sodium Level 135 mmol/L Potassium Level 3.8 mmol/L Chloride Level 104 mmol/L Carbon Dioxide Level 22 mmol/L Anion Gap 9.0 mmol/L Blood Urea Nitrogen 14 mg/dl Creatinine 0.68 mg/dl Est Creatinine Clear Calc Drug Dose 99.9 ml/min Estimated GFR () 106.8 Estimated GFR (Non- 92.1 BUN/Creatinine Ratio 19.9 Random Glucose 207 mg/dl Calcium Level 8.9 mg/dl Test 12/04/17 16:46 Bedside Glucose 206 mg/dl Assessment & Plan Pt is 77 y/o M with PMH HTN, DM II, Alzheimer dementia, gout presented to ER with complaint of fall today. RIGHT FEMORAL NECK FRACTURE S/P Mechanical FALL CT right hip on admission showed acute impacted right subcapital femoral neck fracture. S/P day 1 right Hip Screw Fixation done today by Dr. Short Continue pain control Continue incentive spirometry Non weight bearing in Right lower extremity Continue PT/OT Monitor H/H Fall precaution Waiting for placement Not safe to discharge home after rehab since that has been in the hospital for his 3rd admission due to fall DM II Hold oral DM meds Continue insulin sliding scale Monitor BS HTN losartan resume Continue monitor BP stable HX ALZHEIMER DEMENTIA At baseline stable Insomnia Did not sleep last night On Trazodone 50mg HS that was decreased to 25mg HS Monitor closely for drowsiness GOUT Continue allopurinol HLD Continue atorvastatin DVT Prophylaxis SCD Starting on lovenox in am Disposition: Waiting for placement Pt's : Cristina [phone] Pts daughter: Ewa: [phone] Current Inpatient Medications: Current Inpatient Medications Medications (Trade) Dose Ordered Sig/Aniyah Route Start Time Stop Time Status Last Admin Dose Admin Allopurinol (Zyloprim Tab) 150 mg DAILY PO 12/03/17 09:00 01/02/18 08:59 12/04/17 09:03 150 MG Atorvastatin Calcium (Lipitor Tab) 20 mg DAILY PO 12/03/17 09:00 01/02/18 08:59 12/04/17 09:04 20 MG Insulin Glargine (Lantus Solostar Pen) 13 units if BSG >14... Q12 SC 12/02/17 21:00 01/01/18 20:59 12/04/17 09:21 13 UNITS Glucose (Glucose 40% Gel) 15-30 GRAMS 15 GRAMS... UD PRN PO 12/02/17 17:45 01/01/18 17:44 Glucose (Glucose Chew Tab) 4-8 Tablets 4 Tabl... UD PRN PO 12/02/17 17:45 01/01/18 17:44 Dextrose (Dextrose 50% 50ML Syringe) 25-50ML 25ML FOR ... UD PRN IV 12/02/17 17:45 01/01/18 17:44 Glucagon (Glucagon Inj) 1 mg UD PRN SQ 12/02/17 17:45 01/01/18 17:44 Carbohydrates (Carbohydrates For Hypoglycemia) 15-30 GRAMS 15 grams if BSG 54-69... UD PRN PO 12/02/17 17:45 01/01/18 17:44 Trazodone HCl (Desyrel Tab) 25 mg HS PO 12/02/17 21:00 01/01/18 20:59 12/03/17 20:46 25 MG Naloxone HCl (Narcan Inj) 0.1 mg PRN PRN IV 12/02/17 17:45 01/01/18 17:44 Polyethylene (Miralax Powder Packet) 17 gm DAILY PRN PO 12/02/17 17:45 01/01/18 17:44 Magnesium Hydroxide (Milk Of Magnesia Susp) 30 ml DAILY PRN PO 12/02/17 17:45 01/01/18 17:44 Bisacodyl (Dulcolax Supp) 10 mg DAILY PRN [place] 12/02/17 17:45 01/01/18 17:44 Sodium Biphosphate/ Sodium Phosphate (Fleet Enema) 132 ml PRN PRN [place] 12/02/17 17:45 Clonidine HCl (Catapres Tab) 0.1 mg Q6 PRN PO 12/02/17 18:45 01/01/18 18:44 12/03/17 23:34 0.1 MG Acetaminophen 1000 mg/Empty Bag 100 ml @ 400 mls/hr Q8H PRN IV 12/02/17 18:45 01/01/18 18:44 12/03/17 05:32 400 MLS/HR Enoxaparin Sodium (Lovenox Inj) 40 mg Q24H SQ 12/04/17 10:00 01/03/18 09:59 12/04/17 09:05 40 MG Ondansetron HCl (Zofran Inj) 4 mg Q6H PRN IV 12/03/17 11:00 01/02/18 10:59 Acetaminophen (Tylenol Tab) 650 mg Q6H PRN PO 12/03/17 11:00 01/02/18 10:59 Senna/Docusate Sodium (Senokot S Tab) 2 tab HS PO 12/03/17 21:00 01/02/18 20:59 12/03/17 20:46 2 TAB Tramadol HCl (Ultram Tab) 1 TABLET FOR PAIN RATING... Q4H PRN PO 12/03/17 12:00 01/02/18 11:59 12/04/17 13:28 100 MG Insulin Aspart (novoLOG ASPART) SLIDING SCALE If C... ACHS SC 12/03/17 17:15 01/02/18 17:14 12/04/17 17:46 5 UNITS Losartan Potassium (coZAAR TAB) 25 mg DAILY PO 12/05/17 09:00 01/04/18 08:59
[2017-12-04] MEDS: DOCUSATE SODIUM/SENNA 50/8.6MG TAB PO SCH (21:43)
[2017-12-04] MEDS: TRAZODONE HCL 50 MG TAB PO SCH (21:43)
[2017-12-05 06:04] LABS: HEMATOCRIT 38.6 % (42-52); HEMOGLOBIN 13.4 g/dL (14.0-18.0); MEAN CELL VOLUME 87.3 fL (80-100); MEAN CORPUSCULAR HEMOGLOBIN 30.3 pg (25-34); MEAN CORPUSCULAR HGB CONC 34.7 g/dl (32-36); MEAN PLATELET VOLUME 10.6 fL (7.4-10.4); PLATELET COUNT 215 K/uL (130-400); RED CELL DISTRIBUTION WIDTH CV 13.2 % (11.5-14.5); RED CELL DISTRIBUTION WIDTH SD 42.1 fL (36.4-46.3); WHITE BLOOD COUNT 8.61 K/uL (4.8-10.8)
[2017-12-05] MEDS: TRAMADOL HCL 50 MG TAB PO PRN (06:40)
[2017-12-05 06:54] VITALS: BP 112/69; PULSE 72; TEMP 36.6; O2SAT 93
[2017-12-05] MEDS: ATORVASTATIN 20 MG TAB PO SCH (08:32)
[2017-12-05] MEDS: ALLOPURINOL 100 MG TAB PO SCH (08:32)
[2017-12-05 08:36] VITALS: BP 104/69; PULSE 76
[2017-12-05] MEDS: LOSARTAN POTASSIUM 25 MG TAB PO SCH (08:37)
[2017-12-05] MEDS: INSULIN GLARGINE SOLOSTAR 100 UNITS/ML 3 ML PEN SC SCH ×2 (08:58→21:47)
[2017-12-05] MEDS: INSULIN ASPART 100 UNITS/ML 3 ML PEN SC SCH ×4 (08:59→21:49)
[2017-12-05] MEDS: ENOXAPARIN 40 MG/0.4 ML SYR SQ SCH (09:53)
--- NOTE | 2017-12-05 12:26 | Orthopedic Progress Note ---
Orthopedic Progress Note Date of Service Dec 05, 2017. Subjective Post OP Day: 2 Reports: feeling well, Denies: chest pain, SOB, nausea / vomiting, light headedness, calf pain Additional Notes: Having some pain in the operative site off and on but doing well otherwise. Answers most questions appropriately. Objective calves soft nontender, N/V intact, dressing C/D/I, toes mobile Date Time Temp Pulse Resp B/P (MAP) Pulse Ox O2 Delivery O2 Flow Rate FiO2 12/05/17 08:36 76 104/69 (81) 12/05/17 07:45 Room Air 12/05/17 06:54 36.6 72 18 112/69 (83) 93 Room Air 12/04/17 23:30 96 Room Air 2.0 12/04/17 22:56 36.9 82 14 155/85 (108) 96 Room Air 12/04/17 15:45 Room Air 12/04/17 14:56 37.1 93 16 125/76 (92) 95 Laboratory Results 24 Hours: Test 12/05/17 05:32 Hematocrit 38.6 % Hemoglobin 13.4 g/dL Assessment & Plan Assessment: POD 2 s/p Right hip percutaneous pinning Plan: -Lovenox daily for 4 weeks -Strict NWB RLE -PT/OT -Planning for [facility] upon DC Inhouse Planning Pain Management: Ultram DVT Prophylaxis: TEDs, SCDs, Lovenox Discharge Planning Discharge Planning: assisted facility
--- NOTE | 2017-12-05 12:34 | Consultant Recommendations ---
Early Childhood Coordinator Recommendations Date of Service Dec 05, 2017. Early Childhood Coordinator Recommendations U DISCHARGE INSTRUCTIONS: HIP FRACTURE SELF CARE INSTRUCTIONS: A. You are to ambulate with a walker or crutches for approximately 6 weeks. B. You are NONWEIGHTBEARING on your operative lower extremity for at least 6 weeks. C. Wear low heeled shoes with non-slip soles D. Be sure that your floors are free of things that could trip you throw rugs, electrical cords, and small objects. Avoid wet and waxed floors, especially with crutches/walker/cane. E. Try to walk several times a day with rest periods between. F. You may shower 48 hours after surgery and get the incision area wet, but DO NOT soak or submerge incision area in water. (No baths, swimming pools, hot tubs ) G. You may have a large, band-aid like dressing over your incision (Aquacel). This will remain on your incision for 7 days, and then can be removed. You CAN shower with this on. If incision is leaking through the dressing, please call the office . H. Do NOT apply soap or any ointment/lotions directly over incision. I. You may use ice as needed to operative site. SPECIAL CARE INSTRUCTIONS: VERY IMPORTANT TO READ AND REVIEW A. You may be at risk for phlebitis or blood clots. a. Wear surgical stockings (PEACE hose) for 2 weeks after surgery to improve circulation and reduce swelling. b. Take LOVENOX 40mg SQ daily for 4 weeks or as directed. This is your blood thinner. B. There are a few signs you need to watch for after you are home. Call [facility] at [phone] if you experience any of the following: a. If you have a temperature of 101 degrees or higher. b. Sudden increase in pain in your hip not relieved by rest or pain medication. c. Any fluid or drainage from the incision; redness of the incision. d. Shortness of breath or chest pain. C . Pain Medication: a. You will be prescribed pain medication upon discharge that should last till your first post-operative appointment. b. If you experience nausea and/or skin rash, discontinue this medication and contact our office for an alternative medication. c. Caution- narcotic pain medication can cause constipation. FOLLOW UP VISIT: Please call [facility] at [phone] to schedule a follow up appointment 10-14 days from the date of your surgery date.
[2017-12-05 15:09] VITALS: BP 119/72; PULSE 82; TEMP 37.2; O2SAT 94
--- NOTE | 2017-12-05 18:00 | Progress Note ---
Medicine Progress Note Date & Time of Visit: Dec 05, 2017 at 17:56. Subjective Pt was seen and examined Lying in bed with no distress Very calm with no abnormal behavior, off 1 to 1. Pt said that pain is tolerable Denies any chest pain, palpitation and SOB Objective Last 8 Hrs Date Time Temp Pulse Resp B/P (MAP) Pulse Ox O2 Delivery O2 Flow Rate FiO2 12/05/17 16:00 Room Air 12/05/17 15:09 37.2 82 17 119/72 (88) 94 Room Air Physical Exam: General- No acute distress Head- atraumatic Eyes- PERRL, EOMI ENT- oropharynx clear Neck- no JVD Lungs- No wheezing Heart- regular rhythm Abdomen- normal bowel sounds, soft Extremities- n no calf tenderness Neuro- alert, oriented, PERRL, EOMI, Skin- warm & dry Laboratory Results: Last 24 Hours Test 12/04/17 20:39 12/05/17 05:32 12/05/17 08:00 12/05/17 12:04 Bedside Glucose 225 mg/dl 208 mg/dl 246 mg/dl White Blood Count 8.61 K/uL Red Blood Count 4.42 M/uL Hemoglobin 13.4 g/dL Hematocrit 38.6 % Mean Corpuscular Volume 87.3 fL Mean Corpuscular Hemoglobin 30.3 pg Mean Corpuscular Hemoglobin Concent 34.7 g/dl RDW Standard Deviation 42.1 fL RDW Coefficient of Variation 13.2 % Platelet Count 215 K/uL Mean Platelet Volume 10.6 fL Test 12/05/17 17:02 Bedside Glucose 208 mg/dl Assessment & Plan Pt is 77 y/o M with PMH HTN, DM II, Alzheimer dementia, gout presented to ER with complaint of fall today. RIGHT FEMORAL NECK FRACTURE S/P Mechanical FALL CT right hip on admission showed acute impacted right subcapital femoral neck fracture. S/P day 2 right Hip Screw Fixation done today by Dr. Short Continue pain control Continue incentive spirometry Non weight bearing in Right lower extremity Continue PT/OT Monitor H/H Fall precaution Waiting for placement Not safe to discharge home after rehab since that has been in the hospital for his 3rd admission due to fall DM II Hold oral DM meds Continue insulin sliding scale Monitor BS HTN losartan resume Continue monitor BP stable HX ALZHEIMER DEMENTIA At baseline stable Insomnia Did not sleep last night On Trazodone 50mg HS that was decreased to 25mg HS Monitor closely for drowsiness GOUT Continue allopurinol HLD Continue atorvastatin DVT Prophylaxis SCD Starting on lovenox in am Disposition: Waiting for placement Pt's : Cristina [phone] Pts daughter: Ewa: [phone] Current Inpatient Medications: Current Inpatient Medications Medications (Trade) Dose Ordered Sig/Aniyah Route Start Time Stop Time Status Last Admin Dose Admin Allopurinol (Zyloprim Tab) 150 mg DAILY PO 12/03/17 09:00 01/02/18 08:59 12/05/17 08:32 150 MG Atorvastatin Calcium (Lipitor Tab) 20 mg DAILY PO 12/03/17 09:00 01/02/18 08:59 12/05/17 08:32 20 MG Insulin Glargine (Lantus Solostar Pen) 13 units if BSG >14... Q12 SC 12/02/17 21:00 01/01/18 20:59 12/05/17 08:58 13 UNITS Glucose (Glucose 40% Gel) 15-30 GRAMS 15 GRAMS... UD PRN PO 12/02/17 17:45 01/01/18 17:44 Glucose (Glucose Chew Tab) 4-8 Tablets 4 Tabl... UD PRN PO 12/02/17 17:45 01/01/18 17:44 Dextrose (Dextrose 50% 50ML Syringe) 25-50ML 25ML FOR ... UD PRN IV 12/02/17 17:45 01/01/18 17:44 Glucagon (Glucagon Inj) 1 mg UD PRN SQ 12/02/17 17:45 01/01/18 17:44 Carbohydrates (Carbohydrates For Hypoglycemia) 15-30 GRAMS 15 grams if BSG 54-69... UD PRN PO 12/02/17 17:45 01/01/18 17:44 Trazodone HCl (Desyrel Tab) 25 mg HS PO 12/02/17 21:00 01/01/18 20:59 12/04/17 21:43 25 MG Naloxone HCl (Narcan Inj) 0.1 mg PRN PRN IV 12/02/17 17:45 01/01/18 17:44 Polyethylene (Miralax Powder Packet) 17 gm DAILY PRN PO 12/02/17 17:45 01/01/18 17:44 Magnesium Hydroxide (Milk Of Magnesia Susp) 30 ml DAILY PRN PO 12/02/17 17:45 01/01/18 17:44 Bisacodyl (Dulcolax Supp) 10 mg DAILY PRN [place] 12/02/17 17:45 01/01/18 17:44 Sodium Biphosphate/ Sodium Phosphate (Fleet Enema) 132 ml PRN PRN [place] 12/02/17 17:45 Clonidine HCl (Catapres Tab) 0.1 mg Q6 PRN PO 12/02/17 18:45 01/01/18 18:44 12/03/17 23:34 0.1 MG Acetaminophen 1000 mg/Empty Bag 100 ml @ 400 mls/hr Q8H PRN IV 12/02/17 18:45 01/01/18 18:44 12/03/17 05:32 400 MLS/HR Enoxaparin Sodium (Lovenox Inj) 40 mg Q24H SQ 12/04/17 10:00 01/03/18 09:59 12/05/17 09:53 40 MG Ondansetron HCl (Zofran Inj) 4 mg Q6H PRN IV 12/03/17 11:00 01/02/18 10:59 Acetaminophen (Tylenol Tab) 650 mg Q6H PRN PO 12/03/17 11:00 01/02/18 10:59 Senna/Docusate Sodium (Senokot S Tab) 2 tab HS PO 12/03/17 21:00 01/02/18 20:59 12/04/17 21:43 2 TAB Tramadol HCl (Ultram Tab) 1 TABLET FOR PAIN RATING... Q4H PRN PO 12/03/17 12:00 01/02/18 11:59 12/05/17 06:40 100 MG Insulin Aspart (novoLOG ASPART) SLIDING SCALE If C... ACHS [place] 12/03/17 17:15 01/02/18 17:14 12/05/17 13:08 4 UNITS Losartan Potassium (coZAAR TAB) 25 mg DAILY PO 12/05/17 09:00 01/04/18 08:59 12/05/17 08:37 25 MG
[2017-12-05] MEDS: DOCUSATE SODIUM/SENNA 50/8.6MG TAB PO SCH (21:44)
[2017-12-05] MEDS: TRAZODONE HCL 50 MG TAB PO SCH (22:32)
[2017-12-05 22:50] VITALS: BP 132/79; PULSE 79; TEMP 36.9; O2SAT 97
[2017-12-05 23:40] VITALS: O2SAT 97
[2017-12-06] MEDS: TRAMADOL HCL 50 MG TAB PO PRN ×2 (01:47→18:43)
[2017-12-06 06:54] VITALS: BP 113/76; PULSE 67; TEMP 36.8; O2SAT 94
[2017-12-06 07:22] LABS: HEMOGLOBIN A1C 8.6 % (4.5-5.6)
[2017-12-06 08:53] VITALS: BP 113/77; PULSE 82
[2017-12-06] MEDS: ALLOPURINOL 100 MG TAB PO SCH (08:54)
[2017-12-06] MEDS: LOSARTAN POTASSIUM 25 MG TAB PO SCH (08:55)
[2017-12-06] MEDS: ATORVASTATIN 20 MG TAB PO SCH (08:55)
[2017-12-06] MEDS: INSULIN ASPART 100 UNITS/ML 3 ML PEN SC SCH ×4 (09:01→21:40)
[2017-12-06] MEDS: INSULIN GLARGINE SOLOSTAR 100 UNITS/ML 3 ML PEN SC SCH (09:02)
[2017-12-06] MEDS: ENOXAPARIN 40 MG/0.4 ML SYR SQ SCH (09:05)
--- NOTE | 2017-12-06 12:15 | Orthopedic Progress Note ---
Orthopedic Progress Note Date of Service Dec 06, 2017. Subjective Post OP Day: 3 Reports: feeling well, pain controlled w PO medications, Denies: complaints, chest pain, SOB, nausea / vomiting, light headedness, calf pain Objective calves soft nontender, N/V intact, hip located, incision C/D/I, toes mobile Date Time Temp Pulse Resp B/P (MAP) Pulse Ox O2 Delivery O2 Flow Rate FiO2 12/06/17 08:53 82 113/77 (89) 12/06/17 07:20 Room Air 12/06/17 06:54 36.8 67 18 113/76 (88) 94 Room Air 12/05/17 23:40 97 Room Air 2.0 12/05/17 22:50 36.9 79 16 132/79 (96) 97 Room Air 12/05/17 16:00 Room Air 12/05/17 15:09 37.2 82 17 119/72 (88) 94 Room Air Assessment & Plan Assessment: POD# 3 s/p Right hip percutaneous pinning Plan: -Lovenox daily for 4 weeks -Strict NWB RLE -PT/OT -Planning for [facility] Orthopaedically stable, will sign off at this time. please contact with any questions or concerns. discharge instructions as outlined in discharge note. Patient seen and examined personally, agree with above assessment and plan. Inhouse Planning Pain Management: Ultram DVT Prophylaxis: TEDs, SCDs, Lovenox Discharge Planning Discharge Planning: senior care facility
[2017-12-06] MEDS ORDERED: PHARMACY GLYCEMIC MGMT CONSULT PRN (13:00)
--- NOTE | 2017-12-06 13:35 | Pharmacy Progress Note ---
Glycemic Control Intl Consult Date of Service Dec 06, 2017. Scope Glycemic Pharmacist consulted by Dr Preez on 12/06/17 for glycemic control and to write orders per [facility] inpatient glycemic control protocol Objective Weight (Kilograms): 77.700 Accuchecks BSG (last 24hrs): Test 12/05/17 17:02 12/05/17 20:54 12/06/17 08:03 12/06/17 12:01 Bedside Glucose 208 mg/dl (70-99) 310 mg/dl (70-99) 224 mg/dl (70-99) 253 mg/dl (70-99) Laboratory Data (last 24hrs) Test 12/06/17 06:01 Hemoglobin A1c 8.6 % HbA1c Test 12/06/17 06:01 Hemoglobin A1c 8.6 % (4.5-5.6) H Recent Pertinent Medications Outpatient Anti-diabetic Regimen: * Metformin 1,000mg PO BIDM * Jardiance 10mg PO Daily * Novolin 70/30 insulin 20 units SQ PM PRN BSG >200 mg/dl The patient is currently receiving: * Basal insulin: Lantus 13 units every 12 hours * Correctional Insulin: Novolog Correction per scale ACHS Goal Range: Low 120 mg/dL - High 160 mg/dL Correction Factor: 30 mg/dL/unit * Prandial insulin: Per carb ratio of 1 unit per 10 grams CHO consumed * Oral Agents: On hold for admission Risk Factors for Insulin Resistance: * Recent Surgery * Diet Assessment & Plan ASSESSMENT: * 77yo T2DM male with near-adequate outpatient control per recent A1c. Goal A1c likely <8% based on age/co-morbidities. A1c currently is 8.6% * Pt has been receiving 44-46 units of insulin per day with suboptimal control. Goal BSGs post-operatively are <200 mg/dl (ideally <150 mg/dl) to prevent post- operative infectious complications * Pt has been receiving 26 units of basal insulin (as Lantus 13 units SQ BID) * Pt has been receiving ~ 20 units of prandial/correctional insulin (per NovoLog scale with CF/CR based on weight and stress of 2) * AM fasting BSG is elevated at 185, 208, 224 mg/dl over the past 3 days --> more basal insulin is needed * Post-prandial BSGs are all elevated and >200 mg/dl --> will tighten NovoLog scale per CF/CR to weight/stress of 3 * Will continue to titrate based on BSG trends. PLAN FOR INPATIENT GLYCEMIC CONTROL: increase Sq basal bolus dosing to total daily dose of ~ 75 units/day * Continue to hold outpatient oral diabetes medications * Basal insulin: increase dosing * Lantus 25 units SQ x 1 dose with dinner this evening (giving dose early for a total dose of 38 units basal insulin today), then, * Lantus BID, dose based on BSG * BSG below 140mg/dl --> 7 units * BSG 140-180mg/dl --> 13 units * BSG >180 mg/dl --> 19 units * Bolus insulin: lower goal range and tighten parameters * NovoLog per scale ACHS or Q6hrs while NPO * Goal Range: Low 110 mg/dL - High 140 mg/dL * Correction Factor: 20 mg/dL/unit * Nutritional / Prandial insulin per carb ratio of 1 unit per 7 grams CHO consumed * Please note that the plan above was derived based on current level of insulin resistance and hospital stress. These recommendations are appropriate for inpatient admission only. Plan of care upon discharge will need to be reassessed to avoid potential outpatient hypo/hyperglycemia. Thank you.
[2017-12-06 14:19] VITALS: Ht 182.9 cm; Wt 77.7 kg
[2017-12-06 14:59] VITALS: BP 124/82; PULSE 85; TEMP 37.1; O2SAT 94
--- NOTE | 2017-12-06 15:31 | Progress Note ---
Medicine Progress Note Date & Time of Visit: Dec 06, 2017 at 15:28. Subjective Pt was seen and examined Lying in bed with no distress Pt said that he feels fine He has been eating a lot of candy snack that was brought by family Denies any chest pain, palpitation and SOB Objective Last 8 Hrs Date Time Temp Pulse Resp B/P (MAP) Pulse Ox O2 Delivery O2 Flow Rate FiO2 12/06/17 14:59 37.1 85 17 124/82 (96) 94 Room Air 12/06/17 08:53 82 113/77 (89) Physical Exam: General- No acute distress Head- atraumatic Eyes- PERRL, EOMI ENT- oropharynx clear Neck- no JVD Lungs- No wheezing Heart- regular rhythm Abdomen- normal bowel sounds, soft Extremities- n no calf tenderness Neuro- alert, oriented, PERRL, EOMI, Skin- warm & dry Laboratory Results: Last 24 Hours Test 12/05/17 17:02 12/05/17 20:54 12/06/17 06:01 12/06/17 08:03 Bedside Glucose 208 mg/dl 310 mg/dl 224 mg/dl Estimated Average Glucose 200 mg/dl Hemoglobin A1c 8.6 % Test 12/06/17 12:01 Bedside Glucose 253 mg/dl Assessment & Plan Pt is 77 y/o M with PMH HTN, DM II, Alzheimer dementia, gout presented to ER with complaint of fall today. RIGHT FEMORAL NECK FRACTURE S/P Mechanical FALL CT right hip on admission showed acute impacted right subcapital femoral neck fracture. S/P day 2 right Hip Screw Fixation done today by Dr. Short Continue pain control Continue incentive spirometry Non weight bearing in Right lower extremity Continue PT/OT Monitor H/H Fall precaution Waiting for placement Not safe to discharge home after rehab since that has been in the hospital for his 3rd admission due to fall DM II Hold oral DM med BS elevates due to candy snack Will consult pharmacy for glycemic management Monitor BS HTN losartan resume Continue monitor BP stable HX ALZHEIMER DEMENTIA At baseline stable Insomnia Did not sleep last night On Trazodone 50mg HS that was decreased to 25mg HS Monitor closely for drowsiness GOUT Continue allopurinol HLD Continue atorvastatin DVT Prophylaxis SCD on lovenox Disposition: Waiting for placement Pt's : Cristina [phone] Pts daughter: Ewa: [phone] Current Inpatient Medications: Current Inpatient Medications Medications (Trade) Dose Ordered Sig/Aniyah Route Start Time Stop Time Status Last Admin Dose Admin Allopurinol (Zyloprim Tab) 150 mg DAILY PO 12/03/17 09:00 01/02/18 08:59 12/06/17 08:54 150 MG Atorvastatin Calcium (Lipitor Tab) 20 mg DAILY PO 12/03/17 09:00 01/02/18 08:59 12/06/17 08:55 20 MG Glucose (Glucose 40% Gel) 15-30 GRAMS 15 GRAMS... UD PRN PO 12/02/17 17:45 01/01/18 17:44 Glucose (Glucose Chew Tab) 4-8 Tablets 4 Tabl... UD PRN PO 12/02/17 17:45 01/01/18 17:44 Dextrose (Dextrose 50% 50ML Syringe) 25-50ML 25ML FOR ... UD PRN IV 12/02/17 17:45 01/01/18 17:44 Glucagon (Glucagon Inj) 1 mg UD PRN SQ 12/02/17 17:45 01/01/18 17:44 Carbohydrates (Carbohydrates For Hypoglycemia) 15-30 GRAMS 15 grams if BSG 54-69... UD PRN PO 12/02/17 17:45 01/01/18 17:44 Trazodone HCl (Desyrel Tab) 25 mg HS PO 12/02/17 21:00 01/01/18 20:59 12/05/17 22:32 25 MG Naloxone HCl (Narcan Inj) 0.1 mg PRN PRN IV 12/02/17 17:45 01/01/18 17:44 Polyethylene (Miralax Powder Packet) 17 gm DAILY PRN PO 12/02/17 17:45 01/01/18 17:44 Magnesium Hydroxide (Milk Of Magnesia Susp) 30 ml DAILY PRN PO 12/02/17 17:45 01/01/18 17:44 Bisacodyl (Dulcolax Supp) 10 mg DAILY PRN [place] 12/02/17 17:45 01/01/18 17:44 Sodium Biphosphate/ Sodium Phosphate (Fleet Enema) 132 ml PRN PRN [place] 12/02/17 17:45 Clonidine HCl (Catapres Tab) 0.1 mg Q6 PRN PO 12/02/17 18:45 01/01/18 18:44 12/03/17 23:34 0.1 MG Acetaminophen 1000 mg/Empty Bag 100 ml @ 400 mls/hr Q8H PRN IV 12/02/17 18:45 01/01/18 18:44 12/03/17 05:32 400 MLS/HR Enoxaparin Sodium (Lovenox Inj) 40 mg Q24H SQ 12/04/17 10:00 01/03/18 09:59 12/06/17 09:05 40 MG Ondansetron HCl (Zofran Inj) 4 mg Q6H PRN IV 12/03/17 11:00 01/02/18 10:59 Acetaminophen (Tylenol Tab) 650 mg Q6H PRN PO 12/03/17 11:00 01/02/18 10:59 Senna/Docusate Sodium (Senokot S Tab) 2 tab HS PO 12/03/17 21:00 01/02/18 20:59 12/05/17 21:44 2 TAB Tramadol HCl (Ultram Tab) 1 TABLET FOR PAIN RATING... Q4H PRN PO 12/03/17 12:00 01/02/18 11:59 12/06/17 01:47 100 MG Insulin Aspart (novoLOG ASPART) SLIDING SCALE If C... ACHS [place] 12/03/17 17:15 01/02/18 17:14 12/06/17 13:44 10 UNITS Losartan Potassium (coZAAR TAB) 25 mg DAILY PO 12/05/17 09:00 01/04/18 08:59 12/06/17 08:55 25 MG Miscellaneous Information (Consult Glycemic Management Pharmacy) 1 ea UD PRN N/A 12/06/17 13:00 01/05/18 12:59 Insulin Glargine (Lantus Solostar Pen) IF PATIENT NPO, C... Q12 SC 12/07/17 09:00 01/06/18 08:59 Insulin Glargine (Lantus Solostar Pen) 25 units 12/06/17@1600 SC 12/06/17 16:00 12/06/17 16:01
[2017-12-06] MEDS ORDERED: INSULIN GLARGINE SOLOSTAR 100 UNITS/ML 3 ML PEN SC SCH ×2 (16:00)
[2017-12-06] MEDS: DOCUSATE SODIUM/SENNA 50/8.6MG TAB PO SCH (21:28)
[2017-12-06] MEDS: TRAZODONE HCL 50 MG TAB PO SCH (21:31)
[2017-12-06 23:27] VITALS: BP 137/87; PULSE 77; TEMP 36.8; O2SAT 96
[2017-12-06 23:40] VITALS: O2SAT 96
[2017-12-07] VITALS (7 sets, daily range): BP systolic 123–134; BP diastolic 78–82; PULSE 67–81; TEMP 36.9–37.1; O2SAT 92–98
[2017-12-07 06:28] LABS: HEMATOCRIT 39.8 % (42-52); HEMOGLOBIN 13.6 g/dL (14.0-18.0); MEAN CELL VOLUME 87.9 fL (80-100); MEAN CORPUSCULAR HGB CONC 34.2 g/dl (32-36); MEAN PLATELET VOLUME 9.8 fL (7.4-10.4); PLATELET COUNT 279 K/uL (130-400); RED CELL DISTRIBUTION WIDTH CV 13.2 % (11.5-14.5); RED CELL DISTRIBUTION WIDTH SD 42.4 fL (36.4-46.3); WHITE BLOOD COUNT 8.78 K/uL (4.8-10.8)
[2017-12-07 07:01] LABS: CREATININE 0.85 mg/dl (0.60-1.40)
[2017-12-07] MEDS: ALLOPURINOL 100 MG TAB PO SCH (09:02)
[2017-12-07] MEDS: ATORVASTATIN 20 MG TAB PO SCH (09:02)
[2017-12-07] MEDS: LOSARTAN POTASSIUM 25 MG TAB PO SCH (09:05)
[2017-12-07] MEDS: INSULIN ASPART 100 UNITS/ML 3 ML PEN SC SCH ×4 (09:11→21:16)
[2017-12-07] MEDS: INSULIN GLARGINE SOLOSTAR 100 UNITS/ML 3 ML PEN SC SCH ×2 (09:13→21:18)
[2017-12-07] MEDS: TRAMADOL HCL 50 MG TAB PO PRN ×2 (09:14→23:50)
[2017-12-07] MEDS: ENOXAPARIN 40 MG/0.4 ML SYR SQ SCH (09:37)
--- NOTE | 2017-12-07 11:41 | Pharmacy Progress Note ---
Pharmacy Glycemic Short Note 2 Date of Service Dec 07, 2017. OUTPATIENT ANTIDIABETIC REGIMEN: * Metformin 1,000mg PO BIDM * Jardiance 10mg PO Daily * Novolin 70/30 insulin 20 units SQ PM PRN BSG >200 mg/dl Item Value Date Time Bedside Glucose 208 mg/dl H 12/05/17 0800 Bedside Glucose 246 mg/dl H 12/05/17 1204 Bedside Glucose 208 mg/dl H 12/05/17 1702 Bedside Glucose 310 mg/dl H 12/05/17 2054 Bedside Glucose 224 mg/dl H 12/06/17 0803 Bedside Glucose 253 mg/dl H 12/06/17 1201 Bedside Glucose 226 mg/dl H 12/06/17 1711 Bedside Glucose 251 mg/dl H 12/06/17 2037 Bedside Glucose 197 mg/dl H 12/07/17 0806 ASSESSMENT: * 77yo T2DM male with near-adequate outpatient control per recent A1c. Goal A1c likely <8% based on age/co-morbidities. A1c currently is 8.6% * Pt has been receiving 44-46 units of insulin per day with suboptimal control. Goal BSGs post-operatively are <200 mg/dl (ideally <150 mg/dl) to prevent post- operative infectious complications. Regimen increased upon pharmacy consult yesterday based on estimated total daily dose of~ 80units/day * Pt has received 79 units of insulin over the past 24hrs with little improvement in BSGs * 38 units of basal insulin (as Lantus 13 units SQ in AM + one time dose of Lantus 25 units PM) * 41 units of prandial/correctional insulin (per NovoLog scale with CF/CR based on weight and stress of 3) * AM fasting BSG is still elevated but new dosing is likely not at steady state yet. Will conservatively increase basal insulin dosing. * Post-prandial BSGs are all elevated and >200 mg/dl --> will tighten NovoLog scale per CF/CR * Will continue to titrate based on BSG trends. PLAN FOR INPATIENT GLYCEMIC CONTROL: * Hold outpatient oral diabetes medications * Basal insulin: increase dosing * Lantus 20 units SQ BID * If BSGs do not start trending downwards this afternoon will increase to 22 units SQ BID * Bolus insulin: tighten parameters * NovoLog per scale ACHS or Q6hrs while NPO * Goal Range: Low 110 mg/dL - High 140 mg/dL * Correction Factor: 15 mg/dL/unit * Nutritional / Prandial insulin per carb ratio of 1 unit per 6 grams CHO consumed
--- NOTE | 2017-12-07 12:47 | Progress Note ---
Internal Med Progress Note Date of Service: Dec 07, 2017. Provider Documentation: SUBJECTIVE: The patient was seen and examined in medical floor He has multiple medical problems including dementia diabetes and CKD Was admitted with the fracture of right femur status post mechanical fall Status post ortho evaluation and surgery Denies any symptoms today Has been getting physical therapy OBJECTIVE: Vital Signs-as noted below Exam: General-no apparent distress Minimal tremors involving the upper extremities Eyes-normal ENT-normal Neck-supple Lungs-clear to auscultate bilaterally Heart-regular, no murmur appreciated Abdomen-benign, soft, nontender, bowel sounds present Extremities-negative for any edema Neuro-alert, awake Pleasantly confused No focal neuro deficit Lab data as noted below. ASSESSMENT & PLAN: Pt is 77 y/o M with PMH HTN, DM II, Alzheimer dementia, gout presented to ER with complaint of fall today. RIGHT FEMORAL NECK FRACTURE S/P Mechanical FALL CT right hip on admission showed acute impacted right subcapital femoral neck fracture. S/P day 3 right Hip Screw Fixation done today by Dr. Short Continue incentive spirometry Non weight bearing in Right lower extremity Continue PT/OT and follow recommendation Fall precaution Not safe to discharge home after rehab since that has been in the hospital for his 3rd admission due to fall Awaiting acceptance for rehab DM II Hold oral DM med BS elevates due to candy snack Will consult pharmacy for glycemic management Monitor BS HTN losartan resumed Continue monitor BP stable HX ALZHEIMER DEMENTIA At baseline No acute delirium Insomnia Did not sleep last night On Trazodone 50mg HS that was decreased to 25mg HS Monitor closely for drowsiness GOUT Continue allopurinol HLD Continue atorvastatin DVT Prophylaxis SCD on Lovenox Disposition: Waiting for placement Pt's : Cristina [phone] Pts daughter: Ewa: [phone] Likely to be discharged on approval Vital Signs: Date Time Temp Pulse Resp B/P (MAP) Pulse Ox O2 Delivery O2 Flow Rate FiO2 12/07/17 09:47 96 Room Air 12/07/17 09:04 81 132/78 (96) 12/07/17 07:41 37.1 15 134/82 (99) 96 Room Air 12/07/17 07:30 Room Air 12/06/17 23:40 96 Room Air 2.0 12/06/17 23:27 36.8 77 16 137/87 (104) 96 Room Air 12/06/17 16:15 Room Air 12/06/17 14:59 37.1 85 17 124/82 (96) 94 Room Air Lab Results: Results Past 24 Hours Test 12/06/17 17:11 12/06/17 20:37 12/07/17 06:11 12/07/17 08:06 Range/Units Bedside Glucose 226 251 197 70-99 mg/dl White Blood Count 8.78 4.8-10.8 K/uL Red Blood Count 4.53 4.7-6.1 M/uL Hemoglobin 13.6 14.0-18.0 g/dL Hematocrit 39.8 42-52 % Mean Corpuscular Volume 87.9 80-100 fL Mean Corpuscular Hemoglobin 30.0 25-34 pg Mean Corpuscular Hemoglobin Concent 34.2 32-36 g/dl RDW Standard Deviation 42.4 36.4-46.3 fL RDW Coefficient of Variation 13.2 11.5-14.5 % Platelet Count 279 130-400 K/uL Mean Platelet Volume 9.8 7.4-10.4 fL Creatinine 0.85 0.60-1.40 mg/dl Est Creatinine Clear Calc Drug Dose 79.9 ml/min Estimated GFR () 97.4 Estimated GFR (Non- 84.0 Test 12/07/17 11:53 Range/Units Bedside Glucose 252 70-99 mg/dl
[2017-12-07] MEDS: DOCUSATE SODIUM/SENNA 50/8.6MG TAB PO SCH (20:36)
[2017-12-07] MEDS: TRAZODONE HCL 50 MG TAB PO SCH (20:36)
[2017-12-08 07:38] VITALS: BP 116/73; PULSE 67; TEMP 36.9; O2SAT 96
[2017-12-08 08:24] VITALS: O2SAT 96
[2017-12-08] MEDS: ALLOPURINOL 100 MG TAB PO SCH (09:39)
[2017-12-08] MEDS: LOSARTAN POTASSIUM 25 MG TAB PO SCH (09:40)
[2017-12-08] MEDS: ATORVASTATIN 20 MG TAB PO SCH (09:40)
[2017-12-08] MEDS: INSULIN ASPART 100 UNITS/ML 3 ML PEN SC SCH ×2 (09:46→12:44)
[2017-12-08] MEDS: INSULIN GLARGINE SOLOSTAR 100 UNITS/ML 3 ML PEN SC SCH (09:47)
[2017-12-08] MEDS: ENOXAPARIN 40 MG/0.4 ML SYR SQ SCH (09:51)
[2017-12-08] MEDS: TRAMADOL HCL 50 MG TAB PO PRN (09:53)
--- NOTE | 2017-12-08 11:24 | Progress Note ---
Internal Med Progress Note Date of Service: Dec 08, 2017. Provider Documentation: SUBJECTIVE: The patient was seen and examined in medical floor He has multiple medical problems including dementia diabetes and CKD Was admitted with the fracture of right femur status post mechanical fall Status post ortho evaluation and surgery Denies any symptoms today Has been getting physical therapy 12/08: Remains stable Required straight cath last night and has not been passing any urine Denies any other symptoms We will need to to port catheter before he goes to [facility] this afternoon OBJECTIVE: Vital Signs-as noted below Exam: General-no apparent distress at rest Minimal tremors involving the upper extremities-better today Eyes-normal ENT-normal Neck-supple Lungs-clear to auscultate bilaterally Heart-regular, no murmur appreciated Abdomen-benign, soft, nontender, bowel sounds present No tenderness in hypogastrium and/or renal angles Extremities-negative for any edema Neuro-alert, awake Pleasantly confused-much better today No focal neuro deficit Lab data as noted below. ASSESSMENT & PLAN: Pt is 77 y/o M with PMH HTN, DM II, Alzheimer dementia, gout presented to ER with complaint of fall today. RIGHT FEMORAL NECK FRACTURE S/P Mechanical FALL CT right hip on admission showed acute impacted right subcapital femoral neck fracture. S/P day 3 right Hip Screw Fixation done today by Dr. Short Continue incentive spirometry Non weight bearing in Right lower extremity Continue PT/OT and follow recommendation Fall precaution Not safe to discharge home after rehab since that has been in the hospital for his 3rd admission due to fall We will go to [facility] this afternoon Inability to void Likely secondary to prostatic hypertrophy Required straight cath multiple times Is not been able to pass any urine by himself We will need to put a Trejo and try to take it out in about 7-10 days with a voiding trial at [facility] DM II Hold oral DM med BS elevates due to candy snack Will consult pharmacy for glycemic management Monitor BS HTN losartan resumed Continue monitor BP stable HX ALZHEIMER DEMENTIA At baseline No acute delirium Insomnia Did not sleep last night On Trazodone 50mg HS that was decreased to 25mg HS Monitor closely for drowsiness GOUT Continue allopurinol HLD Continue atorvastatin DVT Prophylaxis SCD on Lovenox Disposition: Waiting for placement Pt's : Cristina [phone] Pts daughter: Ewa: [phone] Likely to be discharged this afternoon Vital Signs: Date Time Temp Pulse Resp B/P (MAP) Pulse Ox O2 Delivery O2 Flow Rate FiO2 12/08/17 09:35 Room Air 12/08/17 08:24 96 Room Air 12/08/17 07:38 36.9 67 17 116/73 (87) 96 Room Air 12/07/17 23:51 36.9 67 16 124/78 (93) 98 Room Air 12/07/17 23:30 92 Room Air 2.0 12/07/17 16:15 Room Air 12/07/17 16:15 36.9 80 16 123/78 (93) 92 12/07/17 13:07 37.1 81 15 96 Room Air Lab Results: Results Past 24 Hours Test 12/07/17 11:53 12/07/17 17:09 12/07/17 20:34 12/07/17 22:30 Range/Units Bedside Glucose 252 200 228 70-99 mg/dl Urine Color YELLOW Urine Appearance CLEAR CLEAR Urine pH 5.5 4.5-7.5 Urine Specific [place] 1.027 1.000-1.030 Urine Protein NEG NEG Urine Glucose (UA) 3+ NEG Urine Ketones NEG NEG Urine Occult Blood NEG NEG Urine Nitrite NEG NEG Urine Bilirubin NEG NEG Urine Urobilinogen POS NEG Urine Leukocyte Esterase NEG NEG Test 12/08/17 08:18 Range/Units Bedside Glucose 165 70-99 mg/dl
[2017-12-08] MEDS ORDERED: LVNIS40 SQ (14:16)
--- NOTE | 2017-12-08 14:21 | Discharge Instructions ---
Discharge Instructions Date of Service Dec 08, 2017. Admission Reason for Admission: Fall, Fracture Of Femoral Neck, Right, Closed Discharge Discharge Diagnosis / Problem: Right Femoral Neck Fracture Discharge Goals Goal(s): Prevent Disease Progression Activity Recommendations Activity Level: Assistance Required Therapies: Physical Therapy, Occupational Therapy Weightbearing Status: Right non-weightbearing . Additional Information Patient informed of condition: Yes Advance Directives: No DNR: No Level of Care: Skilled Communicable Disease: No Prognosis: Stable Oxygen at (LPM): 2 liters/min via NC as needed Trejo Catheter: Yes (Can be taken out in 7 to 10 days with Voiding trial) Instructions / Follow-Up Instructions / Follow-Up Please make an appointment with your PCP in 1 week following discharge from the Facility Current Hospital Diet Patient's current hospital diet: AHA Diet (Heart Healthy), Diabetes Type 2 Diet Discharge Diet Recommended Diet: AHA Diet (Heart Healthy), Diabetes Type 2 Diet Procedures Procedures Performed: Right Hip, Screw Fixation Pending Studies Studies pending at discharge: no Laboratory Results Hemoglobin A1c Test 12/06/17 06:01 Range/Units Estimated Average Glucose 200 mg/dl Hemoglobin A1c 8.6 H 4.5-5.6 % Medical Emergencies . Who to Call and When: Medical Emergencies: If at any time you feel your situation is an emergency, please call 911 immediately. . Non-Emergent Contact Non-Emergency issues call your: Primary Care Provider . Past History Medical & Surgical History: (1) Hip fracture, right (2) Alzheimer's dementia (3) HTN (hypertension) (4) Fall (5) DM type 2 (diabetes mellitus, type 2) (6) Gout (7) Recurrent falls (8) History of appendectomy . "Provider Documentation" section prepared by Anya Best. . Bed Rubber Recommendations Bed Rubber Recommendations: U DISCHARGE INSTRUCTIONS: HIP FRACTURE SELF CARE INSTRUCTIONS: A. You are to ambulate with a walker or crutches for approximately 6 weeks. B. You are NONWEIGHTBEARING on your operative lower extremity for at least 6 weeks. C. Wear low heeled shoes with non-slip soles D. Be sure that your floors are free of things that could trip you throw rugs, electrical cords, and small objects. Avoid wet and waxed floors, especially with crutches/walker/cane. E. Try to walk several times a day with rest periods between. F. You may shower 48 hours after surgery and get the incision area wet, but DO NOT soak or submerge incision area in water. (No baths, swimming pools, hot tubs ) G. You may have a large, band-aid like dressing over your incision (Aquacel). This will remain on your incision for 7 days, and then can be removed. You CAN shower with this on. If incision is leaking through the dressing, please call the office . H. Do NOT apply soap or any ointment/lotions directly over incision. I. You may use ice as needed to operative site. SPECIAL CARE INSTRUCTIONS: VERY IMPORTANT TO READ AND REVIEW A. You may be at risk for phlebitis or blood clots. a. Wear surgical stockings (PEACE hose) for 2 weeks after surgery to improve circulation and reduce swelling. b. Take LOVENOX 40mg SQ daily for 4 weeks or as directed. This is your blood thinner. B. There are a few signs you need to watch for after you are home. Call [facility] at [phone] if you experience any of the following: a. If you have a temperature of 101 degrees or higher. b. Sudden increase in pain in your hip not relieved by rest or pain medication. c. Any fluid or drainage from the incision; redness of the incision. d. Shortness of breath or chest pain. C . Pain Medication: a. You will be prescribed pain medication upon discharge that should last till your first post-operative appointment. b. If you experience nausea and/or skin rash, discontinue this medication and contact our office for an alternative medication. c. Caution- narcotic pain medication can cause constipation. FOLLOW UP VISIT: Please call [facility] at [phone] to schedule a follow up appointment 10-14 days from the date of your surgery date. Core Measure Problem Core Measures: None
[2017-12-08] MEDS ORDERED: ULT50X PO (15:29)
--- NOTE | 2017-12-08 15:31 | Discharge Summary ---
Discharge Summary Date of Service Dec 08, 2017. Discharge Summary Admission Date: Dec 02, 2017 at 17:16 Discharge Date: Dec 08, 2017 Discharge Disposition: senior living facility Principal Diagnosis: Fall, Fracture Of Femoral Neck, Right, Closed Secondary Diagnoses/Problems: Please see H&P and Hospital progress note Consultations: Ortho Medication Reconciliation New Medications: Enoxaparin (Enoxaparin Sodium) 40 Mg/0.4 Ml Inj 40 MG SQ Q24H for 22 Days, #22 Tramadol HCl (Tramadol HCl) 50 Mg Tab 50-100 MG PO Q4H PRN for Pain for 10 Days, #30 TAB Continued Medications: Acetaminophen (Tylenol) 325 Mg Tab 650 MG PO Q8 PRN for Pain or Fever, TAB Allopurinol (Zyloprim) 300 Mg Tab 150 MG PO DAILY 1/2 OF A 300 MG TABLET Ascorbic Acid (Ascorbic Acid) 500 Mg Tab 500 MG PO DAILY, TAB Atorvastatin (Lipitor) 20 Mg Tab 20 MG PO DAILY Empagliflozin (Jardiance) 10 Mg Tab 10 MG PO DAILY Insulin Human Isophan/Regular (Novolin 70/30) Inj 20 UNITS SC UD PRN for hyperglycemia, BTL 20 units before dinner prn BSG >200 Lorazepam (Ativan) 0.5 Mg Tab 0.5 MG PO DAILY PRN for Agitation, TAB Losartan Potassium (Cozaar) 25 Mg Tab 25 MG PO DAILY, TAB Metformin Hcl (Glucophage) 1,000 Mg Tab 1000 MG PO BIDM Trazodone HCl (Trazodone HCl) 50 Mg Tab 50 MG PO HS Admission Information HPI (per Admitting provider): Pt is 77 y/o M with PMH HTN, DM II, Alzheimer dementia, gout presented to ER with complaint of fall. History obtained from pt's secondary to pt's mental status with dementia. Patient's states patient is at his baseline mental status today. Notes yesterday seemed a little more confused and was agitated so given 1 dose of Ativan yesterday, none today. Patient with history of hospitalization 08/23/17-08/26/17 for mechanical fall and pelvic fracture, nonoperative. History recurrent hospitalization 10/28/17-10/31/17 for mechanical fall, and patient was discharged to [facility] and was there approximately 2 weeks then discharged to [facility] ( reports he was listed as flight risk and was eventually d/c home). He has been home approximately 1 week. Uses walker to assist in ambulation and states pt was doing well. Pt's does all his care. This morning woke up to hearing a "thud" and came out in the living room and found patient was lying on floor, appeared that he hit his right side of his head off of TV stand. states patient was awake, was lying on left side and unable to get up. She reports initially thought he was having right knee pain. Denies any known fever or chills, rigors, diarrhea, melena, hematochezia, rashes, cough, noted SOB. Physical Exam (per Admitting): General Appearance: WD/WN, no apparent distress (however lying on left side with right hip and knee flexed in position of comfort) Head: normocephalic (no lacerations/contusions noted) Eyes: normal inspection, PERRL, sclerae normal ENT: hearing grossly normal, pharynx normal, + pertinent finding (mucous membranes moist) Neck: supple, trachea midline, + pertinent finding (no spinous process tenderness to palpation) Respiratory/Chest: lungs clear, normal breath sounds, no respiratory distress Cardiovascular: regular rate, rhythm, normal peripheral pulses Abdomen/GI: normal bowel sounds, non tender, soft Back: normal inspection, no CVA tenderness, + pertinent finding (no spinous process tenderness to palpation) Extremities/Musculoskelatal: + pertinent finding (lying on left side with right hip and knee flexed in position of comfort, R hip and right thigh with noted tenderness to palpation, remaining RLE and LLE without obvious tenderness to palpation. Pt able to extend L hip, knee. Bilateral pedal pushes & pulls intact. BLE with brisk capillary refill, distal pulses intact) Neurologic/Psych: alert, + pertinent finding (pleasantly confused at this time, knows his , otherwise is not oriented to place, time) Skin: warm/dry Hospital Course Pt is 77 y/o M with PMH HTN, DM II, Alzheimer dementia, gout presented to ER with complaint of fall today. RIGHT FEMORAL NECK FRACTURE S/P Mechanical FALL CT right hip on admission showed acute impacted right subcapital femoral neck fracture. S/P day 3 right Hip Screw Fixation done today by Dr. Short Continue incentive spirometry Non weight bearing in Right lower extremity Continue PT/OT and follow recommendation Fall precaution Not safe to discharge home after rehab since that has been in the hospital for his 3rd admission due to fall We will go to [facility] this afternoon Inability to void Likely secondary to prostatic hypertrophy Required straight cath multiple times Is not been able to pass any urine by himself We will need to put a Trejo and try to take it out in about 7-10 days with a voiding trial at [facility] DM II Hold oral DM med BS elevates due to candy snack Will consult pharmacy for glycemic management Monitor BS HTN losartan resumed Continue monitor BP stable HX ALZHEIMER DEMENTIA At baseline No acute delirium Insomnia Did not sleep last night On Trazodone 50mg HS that was decreased to 25mg HS Monitor closely for drowsiness GOUT Continue allopurinol HLD Continue atorvastatin DVT Prophylaxis SCD on Lovenox Disposition: Waiting for placement Pt's : Cristina [phone] Pts daughter: Ewa: [phone] Likely to be discharged this afternoon Total time spent on discharge = 35 minutes This includes examination of the patient, discharge planning, medication reconciliation, and communication with other providers. Discharge Instructions Date of Service Dec 08, 2017. Admission Reason for Admission: Fall, Fracture Of Femoral Neck, Right, Closed Discharge Discharge Diagnosis / Problem: Right Femoral Neck Fracture Discharge Goals Goal(s): Prevent Disease Progression Activity Recommendations Activity Level: Assistance Required Therapies: Physical Therapy, Occupational Therapy Weightbearing Status: Right non-weightbearing . Additional Information Patient informed of condition: Yes Advance Directives: No DNR: No Level of Care: Skilled Communicable Disease: No Prognosis: Stable Oxygen at (LPM): 2 liters/min via NC as needed Trejo Catheter: Yes (Can be taken out in 7 to 10 days with Voiding trial) Instructions / Follow-Up Instructions / Follow-Up Please make an appointment with your PCP in 1 week following discharge from the Facility Current Hospital Diet Patient's current hospital diet: AHA Diet (Heart Healthy), Diabetes Type 2 Diet Discharge Diet Recommended Diet: AHA Diet (Heart Healthy), Diabetes Type 2 Diet Procedures Procedures Performed: Right Hip, Screw Fixation Pending Studies Studies pending at discharge: no Laboratory Results Hemoglobin A1c Test 12/06/17 06:01 Range/Units Estimated Average Glucose 200 mg/dl Hemoglobin A1c 8.6 H 4.5-5.6 % Medical Emergencies . Who to Call and When: Medical Emergencies: If at any time you feel your situation is an emergency, please call 911 immediately. . Non-Emergent Contact Non-Emergency issues call your: Primary Care Provider . Past History Medical & Surgical History: (1) Hip fracture, right (2) Alzheimer's dementia (3) HTN (hypertension) (4) Fall (5) DM type 2 (diabetes mellitus, type 2) (6) Gout (7) Recurrent falls (8) History of appendectomy . "Provider Documentation" section prepared by Anya Best. . Wedding Planner Recommendations Wedding Planner Recommendations: UOC DISCHARGE INSTRUCTIONS: HIP FRACTURE SELF CARE INSTRUCTIONS: A. You are to ambulate with a walker or crutches for approximately 6 weeks. B. You are NONWEIGHTBEARING on your operative lower extremity for at least 6 weeks. C. Wear low heeled shoes with non-slip soles D. Be sure that your floors are free of things that could trip you throw rugs, electrical cords, and small objects. Avoid wet and waxed floors, especially with crutches/walker/cane. E. Try to walk several times a day with rest periods between. F. You may shower 48 hours after surgery and get the incision area wet, but DO NOT soak or submerge incision area in water. (No baths, swimming pools, hot tubs ) G. You may have a large, band-aid like dressing over your incision (Aquacel). This will remain on your incision for 7 days, and then can be removed. You CAN shower with this on. If incision is leaking through the dressing, please call the office . H. Do NOT apply soap or any ointment/lotions directly over incision. I. You may use ice as needed to operative site. SPECIAL CARE INSTRUCTIONS: VERY IMPORTANT TO READ AND REVIEW A. You may be at risk for phlebitis or blood clots. a. Wear surgical stockings (PEACE hose) for 2 weeks after surgery to improve circulation and reduce swelling. b. Take LOVENOX 40mg SQ daily for 4 weeks or as directed. This is your blood thinner. B. There are a few signs you need to watch for after you are home. Call [facility] [place] at [phone] if you experience any of the following: a. If you have a temperature of 101 degrees or higher. b. Sudden increase in pain in your hip not relieved by rest or pain medication. c. Any fluid or drainage from the incision; redness of the incision. d. Shortness of breath or chest pain. C . Pain Medication: a. You will be prescribed pain medication upon discharge that should last till your first post-operative appointment. b. If you experience nausea and/or skin rash, discontinue this medication and contact our office for an alternative medication. c. Caution- narcotic pain medication can cause constipation. FOLLOW UP VISIT: Please call [facility] [place] at [phone] to schedule a follow up appointment 10-14 days from the date of your surgery date. Core Measure Problem Core Measures: None <Electronically signed by Anya Best M.D.> Signed: 12/08/17 0474 Additional Copies To Danielle Jones D.O.
== END 2017-12-08 16:15 | DRG 482 ==
LOC: EDBD 12:24 → C.EDA 12:25 → C.MSW 17:16 → ENRESERV 17:22 → CANRESERV 17:22 → ENRESERV 17:45
PROVIDERS: ADMIT Internal Medicine; ATTEND Internal Medicine
PROC: 0QH604Z Insertion of Internal Fixation Device into Right Upper Femur, Open Approach (ICD-10-PCS; principal; 2017-12-03 08:00)
DX: S72.011A Unspecified intracapsular fracture of right femur, initial encounter for closed fracture (principal); G30.9 Alzheimer's disease, unspecified; F02.80 Dementia in other diseases classified elsewhere, unspecified severity, without behavioral disturbance, psychotic disturbance, mood disturbance, and anxiety; N40.1 Benign prostatic hyperplasia with lower urinary tract symptoms; M10.9 Gout, unspecified; Z85.038 Personal history of other malignant neoplasm of large intestine; I10 Essential (primary) hypertension; Z87.891 Personal history of nicotine dependence; Z88.1 Allergy status to other antibiotic agents; R40.2410 Glasgow coma scale score 13-15, unspecified time; S09.90XA Unspecified injury of head, initial encounter; E11.9 Type 2 diabetes mellitus without complications; N20.0 Calculus of kidney; Z79.84 Long term (current) use of oral hypoglycemic drugs; Z79.4 Long term (current) use of insulin; G47.00 Insomnia, unspecified; R29.6 Repeated falls; Y92.018 Other place in single-family (private) house as the place of occurrence of the external cause; R33.9 Retention of urine, unspecified; E78.5 Hyperlipidemia, unspecified; W19.XXXA Unspecified fall, initial encounter

== ENCOUNTER 2018-08-20 12:44 | Inpatient (IN) ==
--- OUTSIDE RECORDS SUMMARY | 2018-08-20 12:47 | External Medical Summary | Continuity of Care Document ---
:1940 Author Name Allscrimichael M.D. Address Unavailable Unavailable , Care Team Providers Name Role Phone Unavailable Unavailable Unavailable [facility] Unavailable Unavailable Unavailable Unavailable Unavailable Problems Acute appendicitis (540.9) (K35.80) Allergies and Adverse Reactions Tetracyclines (Allergy) Latex (Allergy) Tape (Allergy) Medications Omeprazole 20 MG Oral Tablet Delayed Release , M.D. Refills: 0 Hydrocodone-Acetaminophen 5-500 MG TABS , M.D. Refills: 0 Allopurinol 300 MG Oral Tablet , M.D. Refills: 0 Losartan Potassium 25 MG Oral Tablet , M.D. Refills: 0 Aspirin 81 MG TABS , M.D. Refills: 0 Procedures History of Colon Surgery Status: Complet ed History of Appendectomy Status: Complete d Immunizations Immunizations not documented Social History - Smoking Status Former smoker Plan of Treatment Planned Observations Planned Goals not documented Results No Known Results Results not documented
--- NOTE | 2018-08-20 13:28 | XRay Report ---
SINGLE VIEW CHEST CLINICAL HISTORY: Generalized weakness. FINDINGS: An AP, portable, upright chest radiograph is compared to study dated 12/02/2017 and correlat ed with chest CT dated 04/06/2013. The examination is degraded by portable technique, apical lordotic positioning, and patient rotation. The heart is top normal for projection, noting atherosclerotic c alcification of the thoracic aorta. Chronic interstitial thickening is similar to previous. No airspa ce consolidation or large pleural effusion is identified. There is mild elevation of right hemidiaphr agm with associated atelectasis. No pneumothorax is seen. The skeletal structures are osteopenic. The re are healed left-sided rib fractures. IMPRESSION: No active disease in the chest. Electronically signed by: Bernardo Cardenas M.D. 08/20/2018 1:26 PM
[2018-08-20 13:42] LABS: Basophils # (auto) 0.04 K/uL (0-0.2); Basophils % (auto) 0.4 %; Eosinophils # (auto) 0.06 K/uL (0-0.5); Eosinophils % (auto) 0.5 %; Hematocrit (blood only) 44.4 % (42-52); Immature Granulocytes # (auto) 0.06 K/uL (0.00-0.02); Immature Granulocytes % (auto) 0.5 %; Lymphocytes # (auto) 1.83 K/uL (1.2-3.4); Lymphocytes % (auto) 16.8 %; Mean Corpuscular Volume 85.7 fL (80-100); Mean Platelet Volume 10.3 fL (7.4-10.4); Monocytes # (auto) 1.04 K/uL (0.11-0.59); Monocytes % (auto) 9.5 %; Neutrophils # (auto) 7.89 K/uL (1.4-6.5); Neutrophils % (auto) 72.3 %; Platelet Count 250 K/uL (130-400); RDW Coefficient of Variation 13.2 % (11.5-14.5); RDW Standard Deviation 41.3 fL (36.4-46.3); Red Blood Count 5.18 M/uL (4.7-6.1); White Blood Count 10.92 K/uL (4.8-10.8)
[2018-08-20 14:00] LABS: Albumin Level 3.8 gm/dl (3.4-5.0); BUN Creatinine Ratio 19.7 (10-20); Calcium 9.7 mg/dl (8.5-10.1); Creatinine Clr Calc Pharmacy 67.7 ml/min; Est GFR (African American) 86.9; Potassium 3.5 mmol/L (3.5-5.1)
--- NOTE | 2018-08-20 14:04 | CT Scan Report ---
CT SCAN OF THE BRAIN WITHOUT IV CONTRAST CLINICAL HISTORY: Change in mental status. Dementia. Fall. COMPARISON STUDY: CT of the brain dated 12/02/2017. TECHNIQUE: Unenhanced axial CT scan of the brain is performed from the vertex to the skull base. A do se lowering technique was utilized adhering to the principles of ALARA. The skull base was scanned tw ice due to motion artifact. CT DOSE: 1031.97 mGy.cm FINDINGS: Brain parenchyma: There are age-related involutional changes noting moderate to advanced subcortical and periventricular microangiopathic change. There is no hemorrhage, mass effect, or evidence of acu te territorial ischemia by CT criteria. Segal-white matter differentiation is preserved. No extra-axia l fluid collection is seen. Ventricles, sulci, cisterns: Prominent secondary to involutional change. Intracranial vasculature: There is atherosclerotic calcification of the cavernous carotid and vertebr al arteries. Calvarium: The skeletal structures are osteopenic. There is no depressed calvarial fracture. Sinuses and mastoids: The visualized paranasal sinuses are clear. The mastoid air cells are well pneu matized. Orbits: The bony orbits are grossly intact. There is a right ocular lens implant. IMPRESSION: Senescent change as above with no hemorrhage, mass effect, or evidence of acute territori al ischemia by CT criteria. Electronically signed by: Bernardo Cardenas M.D. 08/20/2018 2:02 PM
[2018-08-20 14:10] LABS: Bilirubin,Total 0.8 mg/dl (0.2-1); Total Protein 7.8 gm/dl (6.4-8.2)
[2018-08-20] MEDS ORDERED: LORazepam 0.5 MG TAB PO STA ×2 (14:42→17:27)
--- NOTE | 2018-08-20 15:24 | XRay Report ---
RIGHT HIP 2 VIEWS CLINICAL HISTORY: Fall with right hip pain. FINDINGS: AP and frog-leg views of the right hip are compared to study dated 12/03/2017. The skeletal structures are osteopenic. There is chronic posttraumatic deformity of the right femur with 3 intertr ochanteric cortical lag screws in place. No acute fracture is seen. The visualized right hemipelvis a ppears intact. Mild arthritic change is noted in the right hip. The overlying soft tissues are normal in appearance. Numerous surgical clips are seen in the right lower quadrant. IMPRESSION: 1. There is no radiographic evidence of acute fracture. 2. There is chronic posttraumatic deformity and postoperative change involving the right proximal fem ur as above. Electronically signed by: Bernardo Cardenas M.D. 08/20/2018 3:23 PM
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
[2018-08-20] MEDS ORDERED: GLUCOSE 40% GEL 15 GM TUBE PO PRN (17:05)
[2018-08-20] MEDS ORDERED: GLUCAGON FOR INJ 1 MG VIAL SQ PRN (17:05)
[2018-08-20] MEDS ORDERED: CARBOHYDRATES FOR HYPOGLYCEMIA PO PRN (17:05)
[2018-08-20] MEDS ORDERED: GLUCOSE 10 TABS/TUBE PO PRN (17:05)
[2018-08-20] MEDS ORDERED: DEXTROSE 50% 50 ML SYRINGE IV PRN (17:05)
--- NOTE | 2018-08-20 17:08 | Emergency Department Note ---
Entered by Jie Mitchell acting as a scribe for History of Present Illness General Chief complaint: Fall Time Seen by Provider: 08/20/18 13:00 Source: patient and other (nursing staff) Limitations: other (dementia) History of Present Illness Onset (ago): hour(s) (this morning) Location: upper extremity and lower extremity Pain Consistency: + other (falls) Maximum Pain Intensity: 0 Quality: + other (fall) The patient is a 77 year old male who presents to the Emergency Room with complaints of a fall beginning this morning. As per nursing staff, the patient was brought to the ED via BLS and he fell about 3 times today. They report he has a hx of hip and pelvic fractures. When asked, the patient states the year is 1992 and he is not aware of where he is or his birthday. HPI and ROS limited secondary to the patient's dementia. Home Medications Home Medications Medication Instructions Recorded Confirmed Type acetaminophen [Tylenol] 650 mg PO Q8H PRN 08/20/18 08/20/18 History allopurinol [Zyloprim] 150 mg PO DAILY 08/20/18 08/20/18 History atorvastatin [Lipitor] 20 mg PO DAILY 08/20/18 08/20/18 History empagliflozin [Jardiance] 25 mg PO QAM 08/20/18 08/20/18 History fluorometholone 1 drp OPR DAILY 08/20/18 08/20/18 History insulin glargine [Lantus Solostar 12 units SUBCUT QAM 08/20/18 08/20/18 History U-100 Insulin] lorazepam [Ativan] 1 mg PO BID PRN 08/20/18 08/20/18 History losartan [Cozaar] 25 mg PO QAM 08/20/18 08/20/18 History metformin [Glucophage XR] 500 mg PO BIDM 08/20/18 08/20/18 History trazodone 200 mg PO HS 08/20/18 08/20/18 History Allergies Allergy/AdvReac Type Severity Reaction Status Date / Time tetracycline AdvReac Unknown SEVERE Verified 08/20/18 14:40 CONSTIPATION ADHESIVE TAPE Allergy Intermediate ERRYTHEMA Uncoded 08/20/18 14:40 Past Med/Surg History Medical History Kidney stones (Chronic) Pelvic fracture (Acute) Alzheimer's dementia (Chronic) History of colon cancer (Chronic) HTN (hypertension) (Chronic) Fracture of femoral neck, right, closed DM type 2 (diabetes mellitus, type 2) (Chronic) Gout (Chronic) Recurrent falls (Chronic) Dyslipidemia (Chronic) Osteopenia (Chronic) History of nephrolithotomy with removal of calculi Surgical History History of appendectomy (Chronic) History of back surgery (Chronic) History of bowel resection (Chronic) low anterior resection with side to side anastamosis (05/15/08) History of cornea transplant (Chronic) History of right cataract surgery (Chronic) Family History Other No pertinent family history Social History Preferred Language: [place]serratian Communication Ability: Impaired Senior Compliance Analyst Required: No Beliefs That Will Affect Care: None marital status: Current Living Situation: Spouse Feels Safe at Home: Yes Safety Concerns: Afraid for Others in Home Smoking Status: Former smoker Smoking End Date: "many years ago" Hx Alcohol Use: No Hx Substance Use: No Review of Systems See HPI for pertinent positives & negatives. Other (HPI and ROS limited secondary to the patient's dementia) Physical Exam Vital Signs Vital Signs - 24 hr 08/20/18 12:51 08/20/18 14:03 08/20/18 16:15 Temperature 36.8 C Temperature Source Oral Sepsis Recent Fever Within 48 Hours No Sepsis New/Unexplained Change in Mental Status No Sepsis Action Taken by Nursing No Action Required Pulse Rate 80 Pulse Rate [Apical] 67 80 Pulse Rate [Left Finger] Pulse Rhythm [Apical] Regular Pulse Strength [Apical] Normal Respiratory Rate 16 16 18 Respiratory Effort / Characteristics Non-Labored Spontaneous Respiratory Depth Normal Respiratory Pattern Regular Blood Pressure 170/101 H Blood Pressure [Left Arm] Blood Pressure [Right Arm] 161/95 H 151/89 H Blood Pressure Mean 124 Blood Pressure Mean [Left Arm] Blood Pressure Mean [Right Arm] 117 109 Blood Pressure Position [Left Arm] Blood Pressure Position [Right Arm] Pulse Oximetry 100 98 Oxygen Delivery Method Room Air Room Air 08/20/18 19:09 08/20/18 19:30 Temperature 36.5 C 36.7 C Temperature Source Oral Oral Sepsis Recent Fever Within 48 Hours Sepsis New/Unexplained Change in Mental Status Sepsis Action Taken by Nursing Pulse Rate Pulse Rate [Apical] 60 Pulse Rate [Left Finger] 79 Pulse Rhythm [Apical] Regular Pulse Strength [Apical] Respiratory Rate 18 16 Respiratory Effort / Characteristics Non-Labored Spontaneous Respiratory Depth Normal Respiratory Pattern Regular Blood Pressure Blood Pressure [Left Arm] 144/79 H Blood Pressure [Right Arm] 151/83 H Blood Pressure Mean Blood Pressure Mean [Left Arm] 100 Blood Pressure Mean [Right Arm] 105 Blood Pressure Position [Left Arm] Lying Blood Pressure Position [Right Arm] Semi-fowlers Pulse Oximetry 98 97 Oxygen Delivery Method Room Air Room Air Vital signs reviewed. General: Well-appearing male, in no significant distress. HEENT: No scleral icterus, PERRLA, neck supple. Atraumatic. Cardiovascular: Regular rate and rhythm, no extra sounds. Pulmonary: Clear to auscultation bilaterally, normal work of breathing. Abdomen: Soft, nontender, nondistended, positive bowel sounds. Musculoskeletal: Atraumatic, no peripheral edema. Neurologic: Patient awake, alert, answers questions but confused to place, year, time, and recent events. Skin: Warm, dry, no rash Course 1308: Past medical records reviewed. The patient was evaluated in room A11. A complete history and physical examination was performed. 1451: I discussed the patient's case with Deo Liriano PA-C [facility] Hospitalist. Dr. Jordan, [facility] Hospitalist will evaluate the patient for further management. Administered Medications Acetaminophen (Tylenol) 650 mg PO Q8H PRN PRN Reason: Pain Stop: 09/19/18 17:38 Last Admin: 08/20/18 20:31 Dose: 650 mg Documented by: [id number] Insulin Aspart (Novolog Flexpen) 0 units SC ACHS ZULAY Stop: 09/19/18 17:59 Last Admin: 08/20/18 20:35 Dose: 2 units Documented by: [id number] Cosigned by: [id number] Admin: 08/20/18 18:36 Dose: 6 units Documented by: [id number] Cosigned by: [id number] Trazodone HCl (Desyrel) 200 mg PO HS ZULAY Stop: 09/19/18 20:59 Last Admin: 08/20/18 20:31 Dose: 200 mg Documented by: [id number] Discontinued Medications Lorazepam (Ativan) 0.5 mg in 1 mls @ 1 mls/min IV NOW STA Stop: 08/20/18 17:23 Last Admin: 08/20/18 18:38 Dose: Not Given Documented by: [id number] Lorazepam (Ativan) 0.5 mg PO NOW STA Stop: 08/20/18 14:43 Last Admin: 08/20/18 14:59 Dose: 0.5 mg Documented by: [id number] Lorazepam (Ativan) 0.5 mg PO NOW STA Stop: 08/20/18 17:28 Last Admin: 08/20/18 18:12 Dose: 0.5 mg Documented by: [id number] Medical Decision Making Differential Diagnosis Differential diagnosis: Etiologies such as metabolic, infection, hypo/hyperglycemia, electrolyte abnormalities, cardiac sources, intracerebral event, toxicologic, neurologic, as well as others were entertained. Medical Records Attestation: I reviewed the patient's medical records. Home Medications Current Medication List: was personally reviewed by me Laboratory Data Attestation: I reviewed the patient's lab results. Result diagrams: 08/20/18 13:33 08/20/18 13:33 Lab Results 08/20/18 08/20/18 08/20/18 Range/Units 13:33 13:33 17:15 WBC 10.92 H (4.8-10.8) K/uL RBC 5.18 (4.7-6.1) M/uL Hgb 16.0 (14.0-18.0) g/dL Hct 44.4 (42-52) % MCV 85.7 (80-100) fL MCH 30.9 (25-34) pg MCHC 36.0 (32-36) g/dL RDW Std Deviation 41.3 (36.4-46.3) fL RDW Coeff of Tristan 13.2 (11.5-14.5) % Plt Count 250 (130-400) K/uL MPV 10.3 (7.4-10.4) fL Immature Gran % (Auto) 0.5 % Neut % (Auto) 72.3 % Lymph % (Auto) 16.8 % [place] % (Auto) 9.5 % Eos % (Auto) 0.5 % Baso % (Auto) 0.4 % Immature Gran # (Auto) 0.06 H (0.00-0.02) K/uL Neut # (Auto) 7.89 H (1.4-6.5) K/uL Lymph # (Auto) 1.83 (1.2-3.4) K/uL [place] # (Auto) 1.04 H (0.11-0.59) K/uL Eos # (Auto) 0.06 (0-0.5) K/uL Baso # (Auto) 0.04 (0-0.2) K/uL Sodium 138 (136-145) mmol/L Potassium 3.5 (3.5-5.1) mmol/L Chloride 103 (98-107) mmol/L Carbon Dioxide 25 (21-32) mmol/L Anion Gap 10.0 (3-11) BUN 19 H (7-18) mg/dl Creatinine 0.97 (0.6-1.4) mg/dl Est Cr Clr Drug Dosing 67.7 ml/min Est GFR ( Amer) 86.9 Est GFR (Non-Af Amer) 75.0 BUN/Creatinine Ratio 19.7 (10-20) Glucose 137 H (70-99) mg/dl POC Glucose 144 H (70-99) Calcium 9.7 (8.5-10.1) mg/dl Magnesium 2.0 (1.8-2.4) mg/dl Total Bilirubin 0.8 (0.2-1) mg/dl AST 23 (15-37) U/L ALT 29 (12-78) U/L Alkaline Phosphatase 164 H (45-117) U/L Total Protein 7.8 (6.4-8.2) gm/dl Albumin 3.8 (3.4-5.0) gm/dl Globulin 4.0 (2.5-4.0) gm/dl Albumin/Globulin Ratio 1.0 (0.9-2) Vitamin B12 (211-911) pg/ml Folate (>5.38) ng/ml TSH 1.420 (0.300-4.500) uIu/ml 08/20/18 08/20/18 Range/Units 17:42 20:33 WBC (4.8-10.8) K/uL RBC (4.7-6.1) M/uL Hgb (14.0-18.0) g/dL Hct (42-52) % MCV (80-100) fL MCH (25-34) pg MCHC (32-36) g/dL RDW Std Deviation (36.4-46.3) fL RDW Coeff of Tristan (11.5-14.5) % Plt Count (130-400) K/uL MPV (7.4-10.4) fL Immature Gran % (Auto) % Neut % (Auto) % Lymph % (Auto) % [place] % (Auto) % Eos % (Auto) % Baso % (Auto) % Immature Gran # (Auto) (0.00-0.02) K/uL Neut # (Auto) (1.4-6.5) K/uL Lymph # (Auto) (1.2-3.4) K/uL [place] # (Auto) (0.11-0.59) K/uL Eos # (Auto) (0-0.5) K/uL Baso # (Auto) (0-0.2) K/uL Sodium (136-145) mmol/L Potassium (3.5-5.1) mmol/L Chloride (98-107) mmol/L Carbon Dioxide (21-32) mmol/L Anion Gap (3-11) BUN (7-18) mg/dl Creatinine (0.6-1.4) mg/dl Est Cr Clr Drug Dosing ml/min Est GFR ( Amer) Est GFR (Non-Af Amer) BUN/Creatinine Ratio (10-20) Glucose (70-99) mg/dl POC Glucose 186 H (70-99) Calcium (8.5-10.1) mg/dl Magnesium (1.8-2.4) mg/dl Total Bilirubin (0.2-1) mg/dl AST (15-37) U/L ALT (12-78) U/L Alkaline Phosphatase (45-117) U/L Total Protein (6.4-8.2) gm/dl Albumin (3.4-5.0) gm/dl Globulin (2.5-4.0) gm/dl Albumin/Globulin Ratio (0.9-2) Vitamin B12 448 (211-911) pg/ml Folate 23.98 (>5.38) ng/ml TSH (0.300-4.500) uIu/ml Imaging Data Radiologist's Impression: Radiology results as stated below per my review and the radiologist's interpretation: CT SCAN OF THE BRAIN WITHOUT IV CONTRAST CLINICAL HISTORY: Change in mental status. Dementia. Fall. COMPARISON STUDY: CT of the brain dated 12/02/2017. TECHNIQUE: Unenhanced axial CT scan of the brain is performed from the vertex to the skull base. A dose lowering technique was utilized adhering to the principles of ALARA. The skull base was scanned twice due to motion artifact. CT DOSE: 1031.97 mGy.cm FINDINGS: Brain parenchyma: There are age-related involutional changes noting moderate to advanced subcortical and periventricular microangiopathic change. There is no hemorrhage, mass effect, or evidence of acute territorial ischemia by CT criteria. Segal-white matter differentiation is preserved. No extra-axial fluid collection is seen. Ventricles, sulci, cisterns: Prominent secondary to involutional change. Intracranial vasculature: There is atherosclerotic calcification of the cavernous carotid and vertebral arteries. Calvarium: The skeletal structures are osteopenic. There is no depressed calvarial fracture. Sinuses and mastoids: The visualized paranasal sinuses are clear. The mastoid air cells are well pneumatized. Orbits: The bony orbits are grossly intact. There is a right ocular lens implant. IMPRESSION: Senescent change as above with no hemorrhage, mass effect, or evidence of acute territorial ischemia by CT criteria. Electronically signed by: Bernardo Cardenas M.D. 08/20/2018 2:02 PM SINGLE VIEW CHEST CLINICAL HISTORY: Generalized weakness. FINDINGS: An AP, portable, upright chest radiograph is compared to study dated 12/02/2017 and correlated with chest CT dated 04/06/2013. The examination is degraded by portable technique, apical lordotic positioning, and patient rotation. The heart is top normal for projection, noting atherosclerotic andrea cification of the thoracic aorta. Chronic interstitial thickening is similar to previous. No airspace consolidation or large pleural effusion is identified. There is mild elevation of right hemidiaphragm with associated atelectasis. No pneumothorax is seen. The skeletal structures are osteopenic. There are healed left-sided rib fractures. IMPRESSION: No active disease in the chest. Electronically signed by: Bernardo Cardenas M.D. 08/20/2018 1:26 PM RIGHT HIP 2 VIEWS CLINICAL HISTORY: Fall with right hip pain. FINDINGS: AP and frog-leg views of the right hip are compared to study dated 12/03/2017. The skeletal structures are osteopenic. There is chronic posttraumatic deformity of the right femur with 3 intertrochanteric cortical lag screws in place. No acute fracture is seen. The visualized right hemipelvis appears intact. Mild arthritic change is noted in the right hip. The overlying soft tissues are normal in appearance. Numerous surgical clips are seen in the right lower quadrant. IMPRESSION: 1. There is no radiographic evidence of acute fracture. 2. There is chronic posttraumatic deformity and postoperative change involving the right proximal femur as above. Electronically signed by: Bernardo Cardenas M.D. 08/20/2018 3:23 PM Dictated: 08/20/18 1521 Transcribed: 08/20/18 1521 ECG Data Attestation: I personally reviewed and interpreted this ECG as follows: Indication: other (falls) Rate (beats per minute): 67 Rhythm: normal sinus Findings: no acute ischemic change and no ectopy Blood Pressure Blood Pressure Findings: Elevated blood pressure Blood Pressure Disposition: further management by hospitalist MDM Narrative This patient was evaluated and appeared to be in no significant distress. IV access was obtained and laboratory work was drawn. Patient was placed on the environmental monitoring technician. He apparently crawled out of the bed and was found on the floo r of the hospital room. Patient was with a one-to-one caregiver from the emergency department upon my evaluation. Physical examination reveals no clear injuries. Patient has significant dementia and continues to be antsy, crawling out of bed and requires constant redirection. CT scan of the head was performed and is negative for acute intracranial pathology, chest x-ray is clear. Patient's arrived in the emergency department and expressed concerns over a hip injury on the right. I was able to ambulate the patient with nursing assist. X-ray was performed and reveals old traumatic and postsurgical change without evidence of acute fracture. [facility] as his is currently using a bungee cord to keep him in the chair. She does not feel that she can handle him and keep him safe. Case management was consulted and the patient will be admitted by the hospitalist service for further management and placement. Impression & Plan Dementia, Frequent falls Discharge Plan Visit Data *Final* Discharge Date/Time: 08/20/18 16:39 Chief Complaint: Fall Other Complaint: Leg Injury/Pain ED Provider: Samara Shields Discharge Problem: Dementia, Frequent falls Patient Disposition: Admitted As Inpatient Discharge Instructions Interventions: ED Discharge Assessment Last Done: 08/20/18 16:39 Discharge Problem: Dementia Qualifiers: Dementia type: Alzheimer's disease Alzheimer's disease onset: unspecified onset Dementia behavioral disturbance: without behavioral disturbance Qualified Code(s): G30.9 - Alzheimer's disease, unspecified The scribe's documentation has been prepared under my direction and personally reviewed by me in its entirety. I confirm that the note above accurately reflects all work, treatment, procedures, and medical decision making performed by me.
[2018-08-20] MEDS ORDERED: LORazepam 0.5 MG/1 ML VIAL IV STA (17:22)
[2018-08-20] MEDS ORDERED: LORazepam 0.25 MG/0.5 ML VIAL IV PRN (17:23)
[2018-08-20] MEDS ORDERED: LORazepam 0.5 MG TAB PO PRN (17:27)
[2018-08-20] MEDS: INSULIN ASPART 100 UNITS/ML 3 ML PEN SC SCH ×2 (18:36→20:35)
[2018-08-20 18:41] LABS: Folate (Folic Acid) 23.98 ng/ml (>5.38)
[2018-08-20] MEDS: ACETAMINOPHEN 325 MG TAB PO PRN (20:31)
[2018-08-20] MEDS: TRAZODONE HCL 100 MG TAB PO SCH (20:31)
[2018-08-21 07:03] LABS: Appearance Urine Clear (Clear); Bilirubin Urine Negative (Negative); Blood Urine Negative (Negative); Color Urine Yellow; Glucose Urine UA 3+ (Negative); Ketones Urine 1+ (Negative); Leukocyte Esterase Urine Negative (Negative); Nitrite Urine Negative (Negative); Protein Urine Negative (Negative); Specific Gravity Urine 1.033 (1.000-1.030); Urobilinogen Urine Negative (Negative)
[2018-08-21] MEDS: ALLOPURINOL 300 MG TAB PO SCH (07:42)
[2018-08-21] MEDS: ATORVASTATIN 20 MG TAB PO SCH (07:43)
[2018-08-21] MEDS: LOSARTAN POTASSIUM 25 MG TAB PO SCH (07:43)
[2018-08-21] MEDS: FLUOROMETHOLONE 0.1% OPR SCH (07:44)
[2018-08-21] MEDS: INSULIN ASPART 100 UNITS/ML 3 ML PEN SC SCH ×4 (09:04→21:00)
[2018-08-21] MEDS: LORazepam 1 MG TAB PO PRN (11:18)
[2018-08-21] MEDS: ACETAMINOPHEN 325 MG TAB PO PRN (14:15)
--- NOTE | 2018-08-21 15:29 | Hospitalist Progress Note ---
Date of Service August 21, 2018 Assessment & Plan (1) Frequent falls: Patient with history of falls and dementia -patient had multiple trials of placement in the past -Patient have been see by physical and occupational therapist and they have recommended placement for long term facility -Case management is involved Low Back pain -have discussed with patient's that an X ray of the back is unlikely to change medical management but she prefers the imaging -X ray lumbar spine 1 view ordered -acetaminophen prn for pain (2) Alzheimer's dementia: -CT head Senescent change as above with no hemorrhage, mass effect, or evidence of acute territorial ischemia by CT criteria -urine analysis negative -afebrile -normal TSH, normal folic acid, normal B12 -place on close checks -ativan prn for agitation and trazodone qhs, minimize excessive sedation medications, reorient patient as needed (3) HTN (hypertension): - Continue losartan (4) DM type 2 (diabetes mellitus, type 2): hbA1c 8.6 in 11/2017 - Diabetic diet -hold Jardiance, Sliding scale insulin coverage for now based on blood sugars (5) Gout: - Continue allopurinol - no acute symptoms (6) Dyslipidemia: - Continue outpatient statin. Full Code Code status discussed with Cristina ( she states that she would like everything done if there is a reasonable chance that patient can recover to current baseline but does not want prolonged life-sustaining measures.) phone number [phone] Subjective Patient seen and examined at the bedside. He is pleasant but frequently tries to roll around and tries to climb off the bed. Patient's at the bedside and requesting X ray of the spine because patient reported low back pain. It is is difficult for physician to localize the back pain because patient does not have acute tenderness on palpation and and patient is not a good historian although he says it is there. Patient denies pain elsewhere. Breathing on room air and no shortness of breath Patient also does not know the year or the month on exam earlier and needed to be reoriented that he is in the hospital Physical Exam Constitutional: is pleasant but frequently tries to roll around and tries to climb off the bed. Eyes: PERRL, conjunctivae normal, anicteric sclerae EOM intact bilaterally ENMT: external ear and nose normal, oropharynx normal Respiratory: normal respiratory effort, lungs clear to auscultation Cardiovascular: Rate/Rhythm: regular rate and regular rhythm Gastrointestinal (Abdomen): normal bowel sounds, soft, nontender, no hepatosplenomegaly Neurologic: PERRL, EOMI, accommodation nl, no face palsy, no dysarthria Psychiatric: Orientation: cooperative Motor Behavior: + psychomotor agitation Results & Data Vital Signs (Past 12 Hours) Vital Signs Temp Pulse Pulse Resp BP BP Pulse Ox 08/21/18 15:16 36.3 C L 72 20 135/81 98 08/21/18 07:30 36.5 C 57 L 18 119/79 96 (1) Gout Chronicity: unspecified Gout etiology: unspecified cause Gout site: unspecified site Qualified Code(s): M10.9 - Gout, unspecified (2) DM type 2 (diabetes mellitus, type 2) Diabetes mellitus intermediate insulin use: with moth exterminator use (3) Alzheimer's dementia Alzheimer's disease onset: late-onset Dementia behavioral disturbance: with behavioral disturbance Qualified Code(s): G30.1 - Alzheimer's disease with late onset; F02.81 - Dementia in other diseases classified elsewhere with behavioral disturbance (4) HTN (hypertension) Hypertension type: unspecified Qualified Code(s): I10 - Essential (primary) hypertension
--- NOTE | 2018-08-21 20:30 | XRay Report ---
XR lumbar spine 1V HISTORY: 77 years-old Male back pain acute low back pain without reported trauma COMPARISON: Lumbar spine CT 08/22/2017 TECHNIQUE: Single AP view of the lumbar spine FINDINGS: Bones appear mildly demineralized. 5 nonrib-bearing lumbar type vertebral segments are present. Mild anterior endplate compression deformities are again noted at L2 and L3. Multilevel intervertebral dis c space narrowing with spondylitic spurring redemonstrated. Cannulated screws are noted about the rig ht femoral neck. Surgical clips of the right pelvic distribution. IMPRESSION: Limited study with only a single AP view submitted. Compression deformities at L2 and L3 are redemonstrated suggesting chronic compression fractures as noted on study from 08/22/2017. If there is clinical concern for acute on chronic etiology a lateral film would be beneficial. The above report was generated using voice recognition software. It may contain grammatical, syntax o r spelling errors. Electronically signed by: Yifan Monique M.D. 08/21/2018 8:29 PM
[2018-08-21] MEDS: TRAZODONE HCL 100 MG TAB PO SCH (20:59)
[2018-08-22] MEDS: LOSARTAN POTASSIUM 25 MG TAB PO SCH (08:38)
[2018-08-22] MEDS: ALLOPURINOL 300 MG TAB PO SCH (08:38)
[2018-08-22] MEDS: FLUOROMETHOLONE 0.1% OPR SCH (08:39)
[2018-08-22] MEDS: ATORVASTATIN 20 MG TAB PO SCH (08:39)
[2018-08-22] MEDS: INSULIN ASPART 100 UNITS/ML 3 ML PEN SC SCH ×4 (08:41→20:10)
[2018-08-22] MEDS: ACETAMINOPHEN 325 MG TAB PO PRN ×2 (10:25→20:00)
--- NOTE | 2018-08-22 13:59 | Hospitalist Progress Note ---
Date of Service August 22, 2018 Assessment & Plan (1) Frequent falls: Patient with history of falls and dementia -patient had multiple trials of placement in the past -Patient have been see by physical and occupational therapist and they have recommended placement for shelter facility -Case management is involved Low Back pain -X ray Spine 08/22/18 Compression deformities at L2 and L3 are redemonstrated suggesting chronic compression fractures as noted on study from 08/22/2017. -acetaminophen prn for pain (2) Alzheimer's dementia: dementia with behavioral disturbances -CT head Senescent change as above with no hemorrhage, mass effect, or evidence of acute territorial ischemia by CT criteria -urine analysis negative -afebrile -normal TSH, normal folic acid, normal B12 -place on close checks -ativan prn for agitation and trazodone qhs, minimize excessive sedation medications, reorient patient as needed (3) HTN (hypertension): - Continue losartan (4) DM type 2 (diabetes mellitus, type 2): hbA1c 8.6 in 11/2017 - Diabetic diet -hold Jardiance -continue Sliding scale insulin coverage for now based on blood sugars -will start on Lantus 5 units daily on 08/22/18 (5) Gout: - Continue allopurinol - no acute symptoms (6) Dyslipidemia: - Continue outpatient statin. Full Code Code status discussed with Cristina ( she states that she would like everything done if there is a reasonable chance that patient can recover to current baseline but does not want prolonged life-sustaining measures.) phone number [phone] Subjective Patient more cooperative with staff today. generally remains in the bed as per nursing staff. he is cooperative with medical doctor. patient's family reports concern of patient's back pain but patient does not elicit acute pain on palpation of the back. patient does not appear to be in distress. he needs to re-oriented that he is in a hospital Physical Exam Eyes: PERRL, conjunctivae normal, anicteric sclerae EOM intact bilaterally ENMT: external ear and nose normal, oropharynx normal Neck: trachea midline, no thyromegaly normal visual inspection Respiratory: normal respiratory effort, lungs clear to auscultation Cardiovascular: Rate/Rhythm: regular rate and regular rhythm Gastrointestinal (Abdomen): normal bowel sounds, soft, nontender, no hepatosplenomegaly Neurologic: PERRL, EOMI, accommodation nl, no face palsy, no dysarthria Psychiatric: Orientation: cooperative Motor Behavior: + psychomotor agitation (1) Alzheimer's dementia Alzheimer's disease onset: late-onset Dementia behavioral disturbance: with behavioral disturbance Qualified Code(s): G30.1 - Alzheimer's disease with late onset; F02.81 - Dementia in other diseases classified elsewhere with behavioral disturbance (2) HTN (hypertension) Hypertension type: unspecified Qualified Code(s): I10 - Essential (primary) hypertension (3) DM type 2 (diabetes mellitus, type 2) Diabetes mellitus rn long term care insulin use: with rn long term care use (4) Gout Gout site: unspecified site Gout etiology: unspecified cause Chronicity: unspecified Qualified Code(s): M10.9 - Gout, unspecified
[2018-08-22] MEDS: INSULIN GLARGINE SOLOSTAR 100 UNITS/ML 3 ML PEN SC SCH (14:34)
[2018-08-22] MEDS: TRAZODONE HCL 100 MG TAB PO SCH (20:00)
[2018-08-23] MEDS: ACETAMINOPHEN 325 MG TAB PO PRN ×2 (01:47→08:24)
[2018-08-23] MEDS: ATORVASTATIN 20 MG TAB PO SCH (08:25)
[2018-08-23] MEDS: ALLOPURINOL 300 MG TAB PO SCH (08:25)
[2018-08-23] MEDS: INSULIN GLARGINE SOLOSTAR 100 UNITS/ML 3 ML PEN SC SCH (08:26)
[2018-08-23] MEDS: FLUOROMETHOLONE 0.1% OPR SCH (08:26)
[2018-08-23] MEDS: LOSARTAN POTASSIUM 25 MG TAB PO SCH (08:27)
[2018-08-23] MEDS: INSULIN ASPART 100 UNITS/ML 3 ML PEN SC SCH ×4 (08:28→20:37)
[2018-08-23] MEDS: LORazepam 1 MG TAB PO PRN ×2 (12:01→18:56)
--- NOTE | 2018-08-23 14:40 | Hospitalist Progress Note ---
Date of Service August 23, 2018 Assessment & Plan (1) Frequent falls: Patient with history of falls and dementia PT OT in progress Awaiting acceptance to assisted facility Low Back pain - X ray Spine 08/22/18 Compression deformities at L2 and L3 are redemonstrated suggesting chronic compression fractures as noted on study from 08/22/2017. - Denies back pain - acetaminophen prn for pain (2) Alzheimer's dementia: dementia with behavioral disturbances -CT head Senescent change as above with no hemorrhage, mass effect, or evidence of acute territorial ischemia by CT criteria -urine analysis negative -afebrile -normal TSH, normal folic acid, normal B12 Stable overa (3) HTN (hypertension): - Continue losartan (4) DM type 2 (diabetes mellitus, type 2): hbA1c 8.6 in 11/2017 - Diabetic diet -hold Jardiance -continue Sliding scale insulin coverage for now based on blood sugars -on Lantus 5 units daily on 08/22/18 (5) Gout: - Continue allopurinol - no acute symptoms (6) Dyslipidemia: - Continue outpatient statin. Full Code Code status discussed with Cristina ( she states that she would like everything done if there is a reasonable chance that patient can recover to current baseline but does not want prolonged life-sustaining measures.) phone number [phone] Subjective Follow-up for follow-up for falls Seen resting in bed, sleeping but easily awakened Oriented to person and place otherwise somewhat confused States he feels fine overall Denies headache, chest pain, dizziness, shortness of breath, palpitations Ambulated in the hallway today, no other symptoms Review of Systems Review of Systems: All systems reviewed & are unremarkable except as noted in HPI & below Physical Exam Physical Exam: General-oriented x1-2, not in distress, speaks in sentences with no effort or accessory muscle use Head- atraumatic Eyes- PERRL, EOMI, anicteric ENT- oropharynx clear Neck- supple, no JVD, no adenopathy, no thyromegaly; carotids +2/2, no bruits appreciated Lungs- clear to auscultation bilaterally, no rales/wheezes Heart- normal rate, regular rhythm; no murmur, no gallop, no rub appreciated Abdomen- normal bowel sounds, nondistended, soft, nontender, no masses or hepatosplenomegaly Extremities- no pretibial edema, no calf tenderness; peripheral pulses intact Neuro- alert, oriented x 1-2; CN 2-12 grossly intact; motor 5/5 bilaterally;sensation 100% on all extremities; no other gross focal neurologic deficits Skin- warm & dry Results & Data Vital Signs (Past 12 Hours) Vital Signs Temp Pulse Resp BP Pulse Ox 08/23/18 07:13 36.0 C L 55 L 20 117/80 97 Laboratory Results Laboratory Results - last 24 hr 08/22/18 08/22/18 08/23/18 16:13 20:01 07:58 POC Glucose 147 H 184 H 147 H 08/23/18 12:00 POC Glucose 232 H (1) Alzheimer's dementia Alzheimer's disease onset: late-onset Dementia behavioral disturbance: with behavioral disturbance Qualified Code(s): G30.1 - Alzheimer's disease with late onset; F02.81 - Dementia in other diseases classified elsewhere with behavioral disturbance (2) HTN (hypertension) Hypertension type: unspecified Qualified Code(s): I10 - Essential (primary) hypertension (3) DM type 2 (diabetes mellitus, type 2) 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
[2018-08-23] MEDS: TRAZODONE HCL 100 MG TAB PO SCH (20:37)
[2018-08-24] MEDS: LOSARTAN POTASSIUM 25 MG TAB PO SCH (09:05)
[2018-08-24] MEDS: ATORVASTATIN 20 MG TAB PO SCH (09:05)
[2018-08-24] MEDS: ALLOPURINOL 300 MG TAB PO SCH (09:05)
[2018-08-24] MEDS: FLUOROMETHOLONE 0.1% OPR SCH (09:08)
[2018-08-24] MEDS: INSULIN ASPART 100 UNITS/ML 3 ML PEN SC SCH ×4 (09:31→20:35)
[2018-08-24] MEDS: INSULIN GLARGINE SOLOSTAR 100 UNITS/ML 3 ML PEN SC SCH (09:31)
--- NOTE | 2018-08-24 09:43 | Hospitalist Progress Note ---
Date of Service August 24, 2018 Assessment & Plan (1) Frequent falls: Patient with history of falls and dementia PT OT in progress Awaiting acceptance to intermediate facility Low Back pain - X ray Spine 08/22/18 Compression deformities at L2 and L3 are redemonstrated suggesting chronic compression fractures as noted on study from 08/22/2017. - no back pain - acetaminophen prn for pain (2) Alzheimer's dementia: dementia with behavioral disturbances -CT head Senescent change as above with no hemorrhage, mass effect, or evidence of acute territorial ischemia by CT criteria -urine analysis negative -afebrile -normal TSH, normal folic acid, normal B12 Stable overall (3) HTN (hypertension): - Continue losartan (4) DM type 2 (diabetes mellitus, type 2): hbA1c 8.6 in 11/2017 - Diabetic diet - hold Jardiance - continue Sliding scale insulin coverage for now based on blood sugars - on Lantus 5 units daily on 08/22/18 (5) Gout: - Continue allopurinol - no acute symptoms (6) Dyslipidemia: - Continue outpatient statin. Full Code Code status discussed with Cristina ( she states that she would like everything done if there is a reasonable chance that patient can recover to current baseline but does not want prolonged life-sustaining measures.) phone number [phone] Subjective ff up for dementia seen resting in bed, comfortable states he feels fine overall oriented x 1 calm , cooperative denies symptoms Review of Systems Review of Systems: All systems reviewed & are unremarkable except as noted in HPI & below Physical Exam Physical Exam: General- oriented x 1, not in distress, speaks in sentences with no effort or accessory muscle use Eyes- anicteric Neck- no JVD Lungs- clear BS BL Heart- normal rate, regular rhythm; no murmurs Abdomen- normal bowel sounds, nondistended, soft, nontender Extremities- no pretibial edema, no calf tenderness Neuro- alert, oriented x 1; no gross focal neurologic deficits Skin- warm & dry Results & Data Vital Signs (Past 12 Hours) Vital Signs Temp Pulse Resp BP Pulse Ox 08/24/18 07:21 36.5 C 50 L 16 114/71 99 08/23/18 23:41 37.0 C 63 18 107/70 94 (1) Gout Chronicity: unspecified Gout etiology: unspecified cause Gout site: unspecified site Qualified Code(s): M10.9 - Gout, unspecified (2) DM type 2 (diabetes mellitus, type 2) Diabetes mellitus termite helper insulin use: with termite helper use (3) Alzheimer's dementia Alzheimer's disease onset: late-onset Dementia behavioral disturbance: with behavioral disturbance Qualified Code(s): G30.1 - Alzheimer's disease with late onset; F02.81 - Dementia in other diseases classified elsewhere with behavioral disturbance (4) HTN (hypertension) Hypertension type: unspecified Qualified Code(s): I10 - Essential (primary) hypertension
[2018-08-24] MEDS: ACETAMINOPHEN 325 MG TAB PO PRN ×2 (15:48→23:51)
[2018-08-24] MEDS: LORazepam 1 MG TAB PO PRN (15:48)
[2018-08-24] MEDS: TRAZODONE HCL 100 MG TAB PO SCH (20:34)
[2018-08-25] MEDS: INSULIN ASPART 100 UNITS/ML 3 ML PEN SC SCH ×4 (09:26→20:19)
[2018-08-25] MEDS: LOSARTAN POTASSIUM 25 MG TAB PO SCH (09:28)
[2018-08-25] MEDS: INSULIN GLARGINE SOLOSTAR 100 UNITS/ML 3 ML PEN SC SCH (09:29)
[2018-08-25] MEDS: ATORVASTATIN 20 MG TAB PO SCH (09:29)
[2018-08-25] MEDS: FLUOROMETHOLONE 0.1% OPR SCH (09:29)
[2018-08-25] MEDS: ALLOPURINOL 300 MG TAB PO SCH (09:30)
[2018-08-25] MEDS: LORazepam 1 MG TAB PO PRN ×2 (11:06→18:23)
[2018-08-25] MEDS: ACETAMINOPHEN 325 MG TAB PO PRN (11:06)
--- NOTE | 2018-08-25 17:13 | Hospitalist Progress Note ---
Date of Service August 25, 2018 Assessment & Plan (1) Frequent falls: Patient with history of falls and dementia PT OT in progress --Awaiting acceptance to halfway facility Low Back pain - X ray Spine 08/22/18 Compression deformities at L2 and L3 are redemonstrated suggesting chronic compression fractures as noted on study from 08/22/2017. - no back pain - acetaminophen prn for pain (2) Alzheimer's dementia: dementia with behavioral disturbances -CT head Senescent change as above with no hemorrhage, mass effect, or evidence of acute territorial ischemia by CT criteria -urine analysis negative -afebrile -normal TSH, normal folic acid, normal B12 Stable overall (3) HTN (hypertension): - Continue losartan (4) DM type 2 (diabetes mellitus, type 2): hbA1c 8.6 in 11/2017 - Diabetic diet - hold Jardiance - continue Sliding scale insulin coverage for now based on blood sugars - on Lantus 5 units daily on 08/22/18 (5) Gout: - Continue allopurinol - no acute symptoms (6) Dyslipidemia: - Continue outpatient statin. Full Code Code status discussed with Cristina ( she states that she would like everything done if there is a reasonable chance that patient can recover to current baseline but does not want prolonged life-sustaining measures.) phone number [phone] Subjective ff up for falls, dementia seen resting in bed, comfortable states he feels fine pleasantly confused denies any symptoms Review of Systems Review of Systems: All systems reviewed & are unremarkable except as noted in HPI & below Physical Exam Physical Exam: General- oriented x 1, not in distress, speaks in sentences with no effort or accessory muscle use Eyes- anicteric Neck- no JVD Lungs- clear BS, no rales BL Heart- normal rate, regular rhythm; no murmurs Abdomen- normal bowel sounds, nondistended, soft, nontender Extremities- no pretibial edema, no calf tenderness Neuro- alert, oriented x 1; no other gross focal neurologic deficits Skin- warm & dry Results & Data Vital Signs (Past 12 Hours) Vital Signs Temp Pulse Pulse Resp BP Pulse Ox 08/25/18 15:29 36.8 C 72 21 122/63 96 08/25/18 09:45 36.6 C 60 16 124/77 96 (1) Alzheimer's dementia Alzheimer's disease onset: late-onset Dementia behavioral disturbance: with behavioral disturbance Qualified Code(s): G30.1 - Alzheimer's disease with late onset; F02.81 - Dementia in other diseases classified elsewhere with behavioral disturbance (2) HTN (hypertension) Hypertension type: unspecified Qualified Code(s): I10 - Essential (primary) hypertension (3) DM type 2 (diabetes mellitus, type 2) 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
[2018-08-25] MEDS: TRAZODONE HCL 100 MG TAB PO SCH (22:07)
[2018-08-26] MEDS: ATORVASTATIN 20 MG TAB PO SCH (09:49)
[2018-08-26] MEDS: ALLOPURINOL 300 MG TAB PO SCH (09:49)
[2018-08-26] MEDS: LOSARTAN POTASSIUM 25 MG TAB PO SCH (09:49)
[2018-08-26] MEDS: FLUOROMETHOLONE 0.1% OPR SCH (09:49)
[2018-08-26] MEDS: INSULIN GLARGINE SOLOSTAR 100 UNITS/ML 3 ML PEN SC SCH (10:54)
[2018-08-26] MEDS: INSULIN ASPART 100 UNITS/ML 3 ML PEN SC SCH ×4 (10:54→20:25)
[2018-08-26] MEDS: LORazepam 1 MG TAB PO PRN ×2 (11:58→18:44)
[2018-08-26] MEDS: ACETAMINOPHEN 325 MG TAB PO PRN ×2 (11:58→20:24)
[2018-08-26] MEDS: POLYETHYLENE (MIRALAX) 17 GM PACK PO PRN (13:22)
--- NOTE | 2018-08-26 17:51 | Hospitalist Progress Note ---
Date of Service August 26, 2018 Assessment & Plan (1) Frequent falls: Patient with history of falls and dementia PT OT in progress --Awaiting acceptance to retirement facility Low Back pain - X ray Spine 08/22/18 Compression deformities at L2 and L3 are redemonstrated suggesting chronic compression fractures as noted on study from 08/22/2017. - no back pain - acetaminophen prn for pain (2) Alzheimer's dementia: dementia with behavioral disturbances -CT head Senescent change as above with no hemorrhage, mass effect, or evidence of acute territorial ischemia by CT criteria -urine analysis negative -afebrile -normal TSH, normal folic acid, normal B12 Constipation - PRN Miralax Stable overall (3) HTN (hypertension): - Continue losartan (4) DM type 2 (diabetes mellitus, type 2): hbA1c 8.6 in 11/2017 - Diabetic diet - hold Jardiance - continue Sliding scale insulin coverage for now based on blood sugars - on Lantus 5 units daily on 08/22/18 (5) Gout: - Continue allopurinol - no acute symptoms (6) Dyslipidemia: - Continue outpatient statin. 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 of Systems Review of Systems: All systems reviewed & are unremarkable except as noted in HPI & below Physical Exam Physical Exam: General- oriented x 1, not in distress, speaks in sentences with no effort or accessory muscle use Eyes- anicteric Neck- no JVD Lungs- clear breath sounds bilaterally no crackles Heart- normal rate, regular rhythm; no murmurs Abdomen- normal bowel sounds, nondistended, soft, nontender Extremities- no pretibial edema, no calf tenderness Neuro- alert, oriented x 1; no gross focal neurologic deficits Skin- warm & dry Results & Data Vital Signs (Past 12 Hours) Vital Signs Temp Pulse Resp BP Pulse Ox 08/26/18 07:30 37.0 C 51 L 18 125/78 94 Laboratory Results Laboratory Results - last 24 hr 08/25/18 08/25/18 08/26/18 16:35 20:16 07:55 POC Glucose 159 H 99 138 H 08/26/18 08/26/18 11:42 16:39 POC Glucose 196 H 138 H (1) Alzheimer's dementia Alzheimer's disease onset: late-onset Dementia behavioral disturbance: with behavioral disturbance Qualified Code(s): G30.1 - Alzheimer's disease with late onset; F02.81 - Dementia in other diseases classified elsewhere with behavioral disturbance (2) HTN (hypertension) Hypertension type: unspecified Qualified Code(s): I10 - Essential (primary) hypertension (3) DM type 2 (diabetes mellitus, type 2) Diabetes mellitus fdc insulin use: with [facility] use (4) Gout Gout site: unspecified site Gout etiology: unspecified cause Chronicity: unspecified Qualified Code(s): M10.9 - Gout, unspecified
[2018-08-26] MEDS: TRAZODONE HCL 100 MG TAB PO SCH (20:25)
[2018-08-27] MEDS: ALLOPURINOL 300 MG TAB PO SCH (08:41)
[2018-08-27] MEDS: ATORVASTATIN 20 MG TAB PO SCH (08:41)
[2018-08-27] MEDS: DOCUSATE SODIUM/SENNA 50/8.6MG TAB PO SCH (08:41)
[2018-08-27] MEDS: LOSARTAN POTASSIUM 25 MG TAB PO SCH (08:41)
[2018-08-27] MEDS: FLUOROMETHOLONE 0.1% OPR SCH (08:41)
[2018-08-27] MEDS: INSULIN GLARGINE SOLOSTAR 100 UNITS/ML 3 ML PEN SC SCH (08:43)
[2018-08-27] MEDS: INSULIN ASPART 100 UNITS/ML 3 ML PEN SC SCH ×4 (08:44→21:33)
[2018-08-27] MEDS: POLYETHYLENE (MIRALAX) 17 GM PACK PO PRN (08:48)
[2018-08-27] MEDS: LORazepam 1 MG TAB PO PRN ×2 (13:31→18:49)
[2018-08-27] MEDS: TRAZODONE HCL 100 MG TAB PO SCH (21:32)
--- NOTE | 2018-08-27 23:34 | Hospitalist Progress Note ---
Date of Service August 27, 2018 Assessment & Plan (1) Frequent falls: Patient with history of falls and dementia -- mental status at baseline --Awaiting acceptance to care home facility Low Back pain - X ray Spine 08/22/18 Compression deformities at L2 and L3 are redemonstrated suggesting chronic compression fractures as noted on study from 08/22/2017. - denies pain - acetaminophen prn for pain (2) Alzheimer's dementia: dementia with behavioral disturbances -CT head Senescent change as above with no hemorrhage, mass effect, or evidence of acute territorial ischemia by CT criteria -urine analysis negative -afebrile -normal TSH, normal folic acid, normal B12 Constipation - PRN Miralax Stable overall (3) HTN (hypertension): - Continue losartan (4) DM type 2 (diabetes mellitus, type 2): hbA1c 8.6 in 11/2017 - Diabetic diet - hold Jardiance - continue Sliding scale insulin coverage for now based on blood sugars - on Lantus 5 units daily on 08/22/18 (5) Gout: - Continue allopurinol - no acute symptoms (6) Dyslipidemia: - Continue outpatient statin. Full Code Code status discussed with Cristina ( she states that she would like everything done if there is a reasonable chance that patient can recover to current baseline but does not want prolonged life-sustaining measures.) phone number [phone] Subjective ff upf for dementia, fall seen resting in bed, comfortable pleasantly confused states he feels fine overall denies headache, chest pain, dyspnea no new complaints Review of Systems Review of Systems: All systems reviewed & are unremarkable except as noted in HPI & below Physical Exam Physical Exam: General-not oriented, not in distress, speaks in sentences with no effort or accessory muscle use Eyes- anicteric Neck- no JVD Lungs- clear BS BL Heart- normal rate, regular rhythm; no murmurs Abdomen- normal bowel sounds, nondistended, soft, nontender Extremities- no pretibial edema, no calf tenderness Neuro- alert, not oriented; no gross focal neurologic deficits Skin- warm & dry Results & Data Vital Signs (Past 12 Hours) Vital Signs Temp Pulse Resp BP Pulse Ox 08/27/18 14:58 36.7 C 77 20 142/85 H 96 (1) Alzheimer's dementia Alzheimer's disease onset: late-onset Dementia behavioral disturbance: with behavioral disturbance Qualified Code(s): G30.1 - Alzheimer's disease with late onset; F02.81 - Dementia in other diseases classified elsewhere with behavioral disturbance (2) HTN (hypertension) Hypertension type: unspecified Qualified Code(s): I10 - Essential (primary) hypertension (3) DM type 2 (diabetes mellitus, type 2) 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
[2018-08-28] MEDS: ATORVASTATIN 20 MG TAB PO SCH (08:29)
[2018-08-28] MEDS: ALLOPURINOL 300 MG TAB PO SCH (08:29)
[2018-08-28] MEDS: INSULIN GLARGINE SOLOSTAR 100 UNITS/ML 3 ML PEN SC SCH (08:29)
[2018-08-28] MEDS: FLUOROMETHOLONE 0.1% OPR SCH (08:29)
[2018-08-28] MEDS: LOSARTAN POTASSIUM 25 MG TAB PO SCH (08:29)
[2018-08-28] MEDS: DOCUSATE SODIUM/SENNA 50/8.6MG TAB PO SCH (08:29)
[2018-08-28] MEDS: INSULIN ASPART 100 UNITS/ML 3 ML PEN SC SCH ×4 (08:30→21:48)
[2018-08-28] MEDS: LORazepam 1 MG TAB PO PRN (18:06)
--- NOTE | 2018-08-28 18:19 | Hospitalist Progress Note ---
Date of Service August 28, 2018 Assessment & Plan (1) Frequent falls: Patient with history of falls and dementia -- mental status at baseline --Anticipate discharge to custodial facility today, discussed with spring encaser Low Back pain - X ray Spine 08/22/18 Compression deformities at L2 and L3 are redemonstrated suggesting chronic compression fractures as noted on study from 08/22/2017. - denies pain - acetaminophen prn for pain (2) Alzheimer's dementia: dementia with behavioral disturbances -CT head Senescent change as above with no hemorrhage, mass effect, or evidence of acute territorial ischemia by CT criteria -urine analysis negative -afebrile -normal TSH, normal folic acid, normal B12 Constipation - PRN Miralax Stable overall (3) HTN (hypertension): - Continue losartan (4) DM type 2 (diabetes mellitus, type 2): hbA1c 8.6 in 11/2017 - Diabetic diet - hold Jardiance - continue Sliding scale insulin coverage for now based on blood sugars - on Lantus 5 units daily on 08/22/18 (5) Gout: - Continue allopurinol - no acute symptoms (6) Dyslipidemia: - Continue outpatient statin. Full Code Code status discussed with Cristina ( she states that she would like everything done if there is a reasonable chance that patient can recover to current baseline but does not want prolonged life-sustaining measures.) phone number [phone] Subjective Follow-up for fall, dementia Seen resting in bed, tearful, but inquired, the patient states he does not know why-states because there are a lot of people in his room Patient reassured, he was more calm Denies any new symptoms or complaints Per rn staff the patient has no new signs or symptoms Review of Systems Review of Systems: All systems reviewed & are unremarkable except as noted in HPI & below Physical Exam Physical Exam: General-not oriented, not in distress, speaks in sentences with no effort or accessory muscle use Eyes- anicteric Neck- no JVD Lungs- clear BS, BL no crackles no wheezing Heart- normal rate, regular rhythm; no murmurs Abdomen- normal bowel sounds, nondistended, soft, nontender Extremities- no pretibial edema, no calf tenderness Neuro- alert, not oriented; no gross focal neurologic deficits Skin- warm & dry Results & Data Vital Signs (Past 12 Hours) Vital Signs Temp Pulse Resp BP Pulse Ox 08/28/18 15:00 36.8 C 81 18 134/80 96 (1) Alzheimer's dementia Alzheimer's disease onset: late-onset Dementia behavioral disturbance: with behavioral disturbance Qualified Code(s): G30.1 - Alzheimer's disease with late onset; F02.81 - Dementia in other diseases classified elsewhere with behavioral disturbance (2) HTN (hypertension) Hypertension type: unspecified Qualified Code(s): I10 - Essential (primary) hypertension (3) DM type 2 (diabetes mellitus, type 2) 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
[2018-08-28] MEDS: TRAZODONE HCL 100 MG TAB PO SCH (21:48)
[2018-08-29] MEDS: ALLOPURINOL 300 MG TAB PO SCH (07:36)
[2018-08-29] MEDS: FLUOROMETHOLONE 0.1% OPR SCH (07:37)
[2018-08-29] MEDS: LOSARTAN POTASSIUM 25 MG TAB PO SCH (07:37)
[2018-08-29] MEDS: DOCUSATE SODIUM/SENNA 50/8.6MG TAB PO SCH (07:37)
[2018-08-29] MEDS: ATORVASTATIN 20 MG TAB PO SCH (07:37)
[2018-08-29] MEDS: INSULIN ASPART 100 UNITS/ML 3 ML PEN SC SCH ×4 (08:33→21:09)
[2018-08-29] MEDS: INSULIN GLARGINE SOLOSTAR 100 UNITS/ML 3 ML PEN SC SCH (08:34)
[2018-08-29] MEDS: LORazepam 1 MG TAB PO PRN ×2 (12:25→18:25)
[2018-08-29] MEDS: TRAZODONE HCL 100 MG TAB PO SCH (21:06)
--- NOTE | 2018-08-29 22:35 | Hospitalist Progress Note ---
Date of Service delayed entry date of service as noted below August 29, 2018 Assessment & Plan (1) Frequent falls: Patient with history of falls and dementia -- mental status at baseline confirms --Anticipate discharge to [facility] facility tomorrow Low Back pain secondary to Chronic Compression Fractures - X ray Spine 08/22/18 Compression deformities at L2 and L3 are redemonstrated suggesting chronic compression fractures as noted on study from 08/22/2017. - denies pain - acetaminophen prn for pain monitor (2) Alzheimer's dementia: - dementia with behavioral disturbances -CT head Senescent change as above with no hemorrhage, mass effect, or evidence of acute territorial ischemia by CT criteria -urine analysis negative -afebrile -normal TSH, normal folic acid, normal B12 - recommend referral to Neurologist Constipation - PRN Miralax Stable overall (3) HTN (hypertension): - stable Continue losartan (4) DM type 2 (diabetes mellitus, type 2): hbA1c 8.6 in 11/2017 - Diabetic diet - continue Sliding scale insulin coverage for now based on blood sugars - on Lantus 5 units daily on 08/22/18 (5) Gout: - Continue allopurinol - no acute symptoms (6) Dyslipidemia: - Continue outpatient statin. Full Code Code status discussed with Cristina ( she states that she would like everything done if there is a reasonable chance that patient can recover to current baseline but does not want prolonged life-sustaining measures.) phone number [phone] Subjective ff up for fall, dementia seen resting in bed pleasantly confused no new complaints patient's at bedside no new symptoms per Review of Systems Review of Systems: All systems reviewed & are unremarkable except as noted in HPI & below Physical Exam Physical Exam: General- not oriented, not in distress, speaks in sentences with no effort or accessory muscle use Eyes- anicteric Neck- no JVD Lungs- clear breath sounds bilaterally Heart- normal rate, regular rhythm; no murmurs Abdomen- normal bowel sounds, nondistended, soft, nontender Extremities- no pretibial edema, no calf tenderness Neuro- alert, not oriented no gross focal neurologic deficits Skin- warm & dry Results & Data Vital Signs (Past 12 Hours) Vital Signs Temp Pulse Pulse Resp BP Pulse Ox 08/29/18 22:28 35.7 C L 62 62 20 122/63 94 (1) Gout Chronicity: unspecified Gout etiology: unspecified cause Gout site: unspecified site Qualified Code(s): M10.9 - Gout, unspecified (2) DM type 2 (diabetes mellitus, type 2) 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
[2018-08-30] MEDS: LOSARTAN POTASSIUM 25 MG TAB PO SCH (07:28)
[2018-08-30] MEDS: DOCUSATE SODIUM/SENNA 50/8.6MG TAB PO SCH (07:29)
[2018-08-30] MEDS: ALLOPURINOL 300 MG TAB PO SCH (07:29)
[2018-08-30] MEDS: FLUOROMETHOLONE 0.1% OPR SCH (07:29)
[2018-08-30] MEDS: ATORVASTATIN 20 MG TAB PO SCH (07:29)
[2018-08-30] MEDS: INSULIN GLARGINE SOLOSTAR 100 UNITS/ML 3 ML PEN SC SCH (08:26)
[2018-08-30] MEDS: INSULIN ASPART 100 UNITS/ML 3 ML PEN SC SCH (08:26)
--- NOTE | 2018-08-30 11:15 | Hospitalist Progress Note ---
Date of Service August 30, 2018 Assessment & Plan (1) Frequent falls: Patient with history of falls and dementia -- mental status at baseline -- [facility] continue PT/OT fall precaution s Low Back pain secondary to Chronic Compression Fractures - X ray Spine 08/22/18 Compression deformities at L2 and L3 are redemonstrated suggesting chronic compression fractures as noted on study from 08/22/2017. - denies pain - acetaminophen prn for pain monitor (2) Alzheimer's dementia: - dementia with behavioral disturbances -CT head Senescent change as above with no hemorrhage, mass effect, or evidence of acute territorial ischemia by CT criteria -urine analysis negative -afebrile -normal TSH, normal folic acid, normal B12 - recommend referral to Neurologist Constipation - PRN Miralax Stable overall (3) HTN (hypertension): - stable Continue losartan (4) DM type 2 (diabetes mellitus, type 2): hbA1c 8.6 in 11/2017 - Diabetic diet - resume usual Jardiance, Metformin monitor BSGs (5) Gout: - Continue allopurinol - no acute symptoms (6) Dyslipidemia: - Continue outpatient statin. Disposition d/c to SNF ff up with PCP Dr. Jones on 09/05/18 at 1045am please refer to Physical Biochemist- re: possible paronychia of the great toes consider referral to Neurologist Subjective ff up for fall, dementia resting in bed, comfortable not in distress pleasantly confused denies symptoms no new complaints Review of Systems Review of Systems: All systems reviewed & are unremarkable except as noted in HPI & below Physical Exam Physical Exam: General- not oriented, not in distress, speaks in sentences with no effort or accessory muscle use Eyes- anicteric Neck- no JVD Lungs- clear breath sounds bilaterally Heart- normal rate, regular rhythm; no murmurs Abdomen- normal bowel sounds, nondistended, soft, nontender Extremities- no pretibial edema, no calf tenderness Neuro- alert,not oriented; no gross focal neurologic deficits Skin- warm & dry Results & Data Vital Signs (Past 12 Hours) Vital Signs Temp Pulse Resp BP Pulse Ox 08/30/18 07:18 36.3 C L 58 L 20 112/73 95 (1) Alzheimer's dementia Alzheimer's disease onset: late-onset Dementia behavioral disturbance: with behavioral disturbance Qualified Code(s): G30.1 - Alzheimer's disease with late onset; F02.81 - Dementia in other diseases classified elsewhere with behavioral disturbance (2) HTN (hypertension) Hypertension type: unspecified Qualified Code(s): I10 - Essential (primary) hypertension (3) DM type 2 (diabetes mellitus, type 2) Diabetes mellitus salvage determiner insulin use: with salvage determiner use (4) Gout Gout site: unspecified site Gout etiology: unspecified cause Chronicity: unspecified Qualified Code(s): M10.9 - Gout, unspecified
--- NOTE | 2018-08-30 11:26 | Discharge Summary ---
Date of Service August 30, 2018 Admission HPI Per Admitting Provider This is a 77 y/o male with a PMH of advanced dementia, insulin-requiring DM2, ambulatory dysfunction, dyslipidemia, HTN, colon cancer (s/p resection and chemotherapy), right femoral neck fracture s/p surgical fixation, and gout who presents to the ED today with worsening confusion and pain in right hip after a fall last night and another fall this morning. History obtained from the pt's as patient is poor historian and unable to answer questions. Pt was apparently diagnosed with dementia approximately 4 years ago but symptoms have worsened over past year and especially over the past two months. Pt has a hi story of multiple falls due to loss of balance and ambulatory dysfunction. He is supposed to use a walker to ambulate but does not always do so. Last evening, pt fell (unwitnessed) but was able to get himself back up and stated that he was fine. Did not sleep well last night - very restless. This morning, when his went to change his brief, pt complained of pain when he rolled from [id number]. He was able to walk from the bedroom to the living room. When his went to make a cup of tea, she heard a thud from the living room and found him on the floor. He complained of increased pain in his right side and she was unable to get him off the floor so she called EMS. In the ED, pt has remained confused with frequent attempts to get out of bed and is currently on a one to one. Pulled out his IV in x-ray. No longer complaining of hip pain but points to his neck and upper back when asked about pain. The does report that pt's urine has been dark orange and foul smelling for past day or so. History of a UTI in April. No vomiting. Appetite is good - in fact, pt will often forget that he ate and demand to eat again. He has lost ~6 lbs in the past two months (unintentional). No documented fevers. Sugars last week were 175-200. Admission Exam Per Admitting Provider Constitutional: WD/WN, vitals as above Eyes: PERRL, conjunctivae normal, anicteric sclerae ENMT: external ear and nose normal, oropharynx normal Neck: trachea midline Respiratory: normal respiratory effort, lungs clear to auscultation Auscultation: no rales, no rhonchi and no wheezes Cardiovascular: Rate/Rhythm: regular rate and regular rhythm Heart Sounds: no gallop and no cardiac rub Extremities: normal capillary refill; no pedal edema Gastrointestinal (Abdomen): Inspection/Auscultation: normal bowel sounds; abdomen not distended Percussion/Palpation: abdomen soft; abdomen nontender and no guarding Musculoskeletal: Head/Neck/Chest: normocephalic, head atraumatic and neck supple Extremities: no cyanosis and no clubbing Skin: no rashes, warm and dry no jaundice Neurologic: moves all extremities Psychiatric: Orientation: alert and oriented to person Apperance: + disheveled (took his hospital gown off) Eye Contact: + poor eye contact Affect: + anxious affect Mood: + irritable mood Insight: + poor insight Judgement: + poor judgement Principal Diagnosis FALLS, DEMENTIA Discharge Exam General- not oriented, not in distress, speaks in sentences with no effort or accessory muscle use Eyes- anicteric Neck- no JVD Lungs- clear breath sounds bilaterally Heart- normal rate, regular rhythm; no murmurs Abdomen- normal bowel sounds, nondistended, soft, nontender Extremities- no pretibial edema, no calf tenderness Neuro- alert,not oriented; no gross focal neurologic deficits Skin- warm & dry Discharge Data Allergies Allergy/AdvReac Type Severity Reaction Status Date / Time tetracycline AdvReac Unknown SEVERE Verified 08/20/18 14:40 CONSTIPATION ADHESIVE TAPE Allergy Intermediate ERRYTHEMA Uncoded 08/20/18 14:40 Consultations 08/20/18 14:52 ED Decision to Admit Stat 08/20/18 17:05 Consult Case Management - Discharge Planning Routine Ordered Studies 08/20/18 13:09 CT head/brain wo con Stat FINDINGS: Brain parenchyma: There are age-related involutional changes noting moderate to advanced subcortical and periventricular microangiopathic change. There is no hemorrhage, mass effect, or evidence of acute territorial ischemia by CT criteria. Segal-white matter differentiation is preserved. No extra-axial fluid collection is seen. Ventricles, sulci, cisterns: Prominent secondary to involutional change. Intracranial vasculature: There is atherosclerotic calcification of the cavernous carotid and vertebral arteries. Calvarium: The skeletal structures are osteopenic. There is no depressed calvarial fracture. Sinuses and mastoids: The visualized paranasal sinuses are clear. The mastoid air cells are well pneumatized. Orbits: The bony orbits are grossly intact. There is a right ocular lens implant. IMPRESSION: Senescent change as above with no hemorrhage, mass effect, or evidence of acute territorial ischemia by CT criteria. XR lumbar spine 1V HISTORY: 77 years-old Male back pain acute low back pain without reported trauma COMPARISON: Lumbar spine CT 08/22/2017 TECHNIQUE: Single AP view of the lumbar spine FINDINGS: Bones appear mildly demineralized. 5 nonrib-bearing lumbar type vertebral segments are present. Mild anterior endplate compression deformities are again noted at L2 and L3. Multilevel intervertebral disc space narrowing with spondylitic spurring redemonstrated. Cannulated screws are noted about the right femoral neck. Surgical clips of the right pelvic distribution. IMPRESSION: Limited study with only a single AP view submitted. Compression deformities at L2 and L3 are redemonstrated suggesting chronic compression fractures as noted on study from 08/22/2017. If there is clinical concern for acu te on chronic etiology a lateral film would be beneficial. RIGHT HIP 2 VIEWS CLINICAL HISTORY: Fall with right hip pain. FINDINGS: AP and frog-leg views of the right hip are compared to study dated 12/03/2017. The skeletal structures are osteopenic. There is chronic posttraumatic deformity of the right femur with 3 intertrochanteric cortical lag screws in place. No acute fracture is seen. The visualized right hemipelvis appears intact. Mild arthritic change is noted in the right hip. The overlying soft tissues are normal in appearance. Numerous surgical clips are seen in the right lower quadrant. IMPRESSION: 1. There is no radiographic evidence of acute fracture. 2. There is chronic posttraumatic deformity and postoperative change involving the right proximal femur as above. Hospital Course (1) Frequent falls: Patient with history of falls and dementia -- mental status at baseline -- discharge to alf facility continue PT/OT fall precautions Low Back pain secondary to Chronic Compression Fractures - X ray Spine 08/22/18 Compression deformities at L2 and L3 are redemonstrated suggesting chronic compression fractures as noted on study from 08/22/2017. - denies pain - acetaminophen prn for pain monitor (2) Alzheimer's dementia: - dementia with behavioral disturbances -CT head Senescent change as above with no hemorrhage, mass effect, or evidence of acute territorial ischemia by CT criteria -urine analysis negative -afebrile -normal TSH, normal folic acid, normal B12 - recommend referral to Neurologist Constipation - PRN Miralax (3) HTN (hypertension): - stable Continue losartan (4) DM type 2 (diabetes mellitus, type 2): hbA1c 8.6 in 11/2017 - Diabetic diet - resume usual Jardiance, Metformin monitor BSGs (5) Gout: - Continue allopurinol - no acute symptoms (6) Dyslipidemia: - Continue outpatient statin. Disposition d/c to SNF ff up with PCP Dr. Jones on 09/05/18 at 1045am please refer to [employer]- re: possible paronychia of the great toes consider referral to Neurologist Total Time Total Time Spent Total Time Spent (In Minutes): 45 MINUTES Discharge Plan Discharge Items Patient Disposition: Transfer [facility] Reason For Visit: DEMENTIA, FALLS Discharge Diagnosis: DEMENTIA, FALLS Discharge Goals: Diagnostic testing Activity: Resume your previous activity Activity Comment: FALL PRECAUTIONS, CONTINUE PT/OT Non-emergency contact: Primary Care Provider Call non-emergency contact if: you have any medication questions, your symptoms worsen and you have a fever Follow-up/Referrals: Danielle Jones DO [Primary Care Provider] - 09/05/18 10:45 am Diet: Carb Consistent or DM2 and Heart Healthy Addtl Provider Instructions: PLEASE REFER TO [facility]PANYING [facility]OSPITAL DISCHARGE SUMMARY FOR FURTHER DETAILS. Prescriptions: New sennosides-docusate sodium [Senokot-S] 8.6-50 mg Tablet 1 tab PO QAM 30 Days Qty: 30 RF: 0 Continued acetaminophen [Tylenol] 325 mg Tablet 650 mg PO Q8H PRN (Reason: Pain) RF: 0 atorvastatin [Lipitor] 20 mg tablet 20 mg PO DAILY 30 Days Qty: 30 RF: 0 trazodone 100 mg tablet 200 mg PO HS 30 Days Qty: 60 RF: 0 fluorometholone 0.1 % Drops,Suspension 1 drp OPR DAILY 30 Days Qty: 1 RF: 0 losartan [Cozaar] 25 mg tablet 25 mg PO QAM 30 Days Qty: 30 RF: 0 allopurinol [Zyloprim] 300 mg tablet 150 mg PO DAILY 30 Days Qty: 15 RF: 0 lorazepam [Ativan] 1 mg tablet 1 mg PO BID PRN (Reason: Anxiety) 7 Days Qty: 14 RF: 0 metformin [Glucophage XR] 500 mg tablet extended release 24 hr 500 mg PO BIDM 30 Days Qty: 60 RF: 0 Jardiance 25 mg tablet 25 mg PO QAM 30 Days Qty: 30 RF: 0 Changed Lantus Solostar U-100 Insulin 100 unit/mL (3 mL) insulin pen 12 unit subcut QAM 30 Days Qty: 4 RF: 0 Stand-Alone Forms: [facility] Discharge Orders: Discharge Order (Routine); Ordered 08/30/18 Ordered By: Andreas Baker Skilled Items Patient informed of condition?: Yes DNR: No Discharge Level of Care: Skilled Communicable Disease: No Discharge Prognosis: Stable Admission Data Admit Date/Time: 08/21/18 15:20 Attending Provider: Andreas Baker Admit Provider: Emigdio Jordan Primary Care Provider: Danielle Jones Other Providers: Emigdio Jordan ; IRB Approved Study,Jerrod Service: Medical
== END 2018-08-30 13:05 | DRG 57 ==
LOC: 4E 12:44 → ED 12:44 → 4E 16:39 → 4W 08-21 12:15 → SUATTDRO 08-21 15:20